=== PATIENT | female | born 1940 | race African-American/Black ===

== ENCOUNTER 2017-08-10 17:54 | Inpatient (IN) | payer OTHER, MEDICARE ==
[~2017-08-10] VITALS: Ht 157.5 cm; Wt 110.5 kg
[~2017-08-10 17:54] MED LIST: ASPI81TA82 PO; CITRTAB16 PO; DIGO0.25 PO; DILT120C49 PO; FERR324T4 PO; FLUT1INH7 PO; PROT40TA PO; SPIR50TA21 PO
[2017-08-10 18:12] VITALS: BP 150/75; PULSE 97; RESP 20; TEMP 99; O2SAT 100
[2017-08-10 18:16] VITALS: BP 150/75; PULSE 107; RESP 20; TEMP 99; O2SAT 100
[2017-08-10] MEDS ORDERED: MORPHINE SULFATE 4 MG/ML INJ IV PUSH ONE (19:30)
[2017-08-10] MEDS ORDERED: SODIUM CHLORID 0.9% 500 ML INJ 500 ML IV ONE (19:30)
[2017-08-10] MEDS ORDERED: ONDANSETRON HCL 4 MG/2 ML VIAL IVP ONE (19:30)
[2017-08-10] MEDS ORDERED: SODIUM CHLORIDE 0.9% FLUSH 10 ML FLUSH IV FLUSH PRN ×2 (19:30→22:00)
--- NOTE | 2017-08-10 19:30 | PD ---
HPI Chief Complaint: Abdominal Pain Time Seen by Provider: 19:20 Travel History International Travel<30 days: No Contact w/Intl Traveler<30days: No Traveled to known affect area: No History of Present Illness HPI Patient is a 87-year-old female with a history of partial colectomy for colon mass presents emergency Department with a 2 day history of nausea vomiting and diarrhea all which is nonbloody nonbilious and non-melena's. Patient states she 's also been having some pain disappeared her umbilicus over the past few days. She states that anytime she eats something her stomach rumbles and it usually comes right back up. She has been able to tolerate small amounts of fluid. Denies any fever denies any constipation. States the symptoms a never happened to her before. PFSH Past Medical History Arthritis: Yes Asthma: Yes Blood Disorders: No Depression: Yes Cancer: Yes (COLON) Cardiovascular Problems: Yes (afib) High Cholesterol: No Diabetes: No Endocrine: No Gastrointestinal Disorders: Yes (WEIGHT LOSS, DIARRHEA, NAUSEA) Genitourinary: Yes Hepatitis: No Hiatal Hernia: No Immune Disorder: No Kidney Stones: Yes Musculoskeletal: No Neurologic: No Psychiatric: No Reproductive: No Respiratory: Yes (asthma ) Thyroid Disease: No Tetanus Vaccination: Unknown Menopausal: Yes Tubal Ligation: Yes Past Surgical History Abdominal Surgery: Yes (colon ? ) AICD: No Arteriovenous Shunt: No Cardiac Surgery: No Ear Surgery: No Endocrine Surgery: No Eye Surgery: No Genitourinary Surgery: No Gynecologic Surgery: Yes (TUBAL LIGATION) Joint Replacement: No Oral Surgery: No Pacemaker: No Thoracic Surgery: No Social History Alcohol Use: No Tobacco Use: No Substance Use: No Allergies-Medications (Allergen,Severity, Reaction): Coded Allergies: No Known Allergies (Verified , 08/22/16) Reported Meds & Prescriptions Reported Meds & Active Scripts Active Reported Furosemide 20 Mg Tab 20 Mg PO DAILY Ferrous Sulfate 325 Mg (65 Mg Iron) Tablet 325 Mg PO DAILY Ventolin Hfa 18 GM Inh (Albuterol Sulfate) 90 Mcg/Act Aer 2 Puff INH Q4-6H PRN Breo Ellipta Inh (Fluticasone/Vilanterol) 100-25 Mcg/Act Inh 1 Puff INH DAILY Use daily at the same time. Pantoprazole (Pantoprazole Sodium) 40 Mg Tab 40 Mg PO DAILY Duoneb (Ipratropium-Albuterol Neb) 0.5-2.5 Mg/3 Ml Neb 1 Nebule INH Q4HR NEB Digoxin 0.25 Mg Tab 0.25 Mg PO DAILY Spironolactone 50 Mg Tab 50 Mg PO DAILY Diltiazem ER 24 HR 180 Mg Nikita 120 Mg PO DAILY Review of Systems Except as stated in HPI: all other systems reviewed are Neg Physical Exam Narrative GENERAL: Well-developed well-nourished, morbidly obese. Mildly uncomfortable. SKIN: Focused skin assessment warm/dry. HEAD: Atraumatic. Normocephalic. EYES: Pupils equal and round. No scleral icterus. No injection or drainage. ENT: No nasal bleeding or discharge. Mucous membranes pink and moist. NECK: Trachea midline. No JVD. CARDIOVASCULAR: Regular rate and rhythm. No murmur appreciated. RESPIRATORY: No accessory muscle use. Clear to auscultation. Breath sounds equal bilaterally. GASTROINTESTINAL: Exam limited secondary to habitus. Abdomen soft, minimally tender throughout the entire abdomen, Damon distended, tympanic to percussion. Well-healed midline surgical scar., nondistended. Hepatic and splenic margins not palpable. MUSCULOSKELETAL: No obvious deformities. No clubbing. No cyanosis. No edema. NEUROLOGICAL: Awake and alert. No obvious cranial nerve deficits. Motor grossly within normal limits. Normal speech. PSYCHIATRIC: Appropriate mood and affect; insight and judgment normal. Data Data Last Documented VS Vital Signs Date Time Temp Pulse Resp B/P (MAP) Pulse Ox O2 Delivery O2 Flow Rate FiO2 08/10/17 20:03 98 18 158/69 (98) 97 Room Air 08/10/17 18:16 99.0 4.00 Orders Orders Complete Blood Count With Diff (08/10/17 19:28) Comprehensive Metabolic Panel (08/10/17 19:28) Lipase (08/10/17 19:28) Lactic Acid (08/10/17 19:28) Prothrombin Time / Inr (Pt) (08/10/17 19:28) Act Partial Throm Time (Ptt) (08/10/17 19:28) Urinalysis - C+S If Indicated (08/10/17 19:28) Ct Abd/Pel W Iv Contrast(Rout) (08/10/17 19:28) Iv Access Insert/Monitor (08/10/17 19:28) Ecg Monitoring (08/10/17 19:28) Oximetry (08/10/17 19:28) Morphine Inj (Morphine Inj) (08/10/17 19:30) Ondansetron Inj (Zofran Inj) (08/10/17 19:30) Sodium Chloride 0.9% Flush (Ns Flush) (08/10/17 19:30) Electrocardiogram (08/10/17 19:28) Sodium Chlorid 0.9% 500 Ml Inj (Ns 500 M (08/10/17 19:30) Iodixanol 320 Inj (Rad Ct) (Visipaque 32 (08/10/17 20:59) Insert Ng Tube (08/10/17 21:16) Admit Order (Ed Use Only) (08/10/17 ) Consult General Surgery (08/10/17 ) Labs Laboratory Tests Test 08/10/17 19:40 08/10/17 21:14 White Blood Count 7.2 TH/MM3 Red Blood Count 4.73 MIL/MM3 Hemoglobin 14.9 GM/DL Hematocrit 45.7 % Mean Corpuscular Volume 96.7 FL Mean Corpuscular Hemoglobin 31.4 PG Mean Corpuscular Hemoglobin Concent 32.5 % Red Cell Distribution Width 14.8 % Platelet Count 221 TH/MM3 Mean Platelet Volume 9.4 FL Neutrophils (%) (Auto) 70.4 % Lymphocytes (%) (Auto) 21.0 % Monocytes (%) (Auto) 7.8 % Eosinophils (%) (Auto) 0.5 % Basophils (%) (Auto) 0.3 % Neutrophils # (Auto) 5.0 TH/MM3 Lymphocytes # (Auto) 1.5 TH/MM3 Monocytes # (Auto) 0.6 TH/MM3 Eosinophils # (Auto) 0.0 TH/MM3 Basophils # (Auto) 0.0 TH/MM3 CBC Comment DIFF FINAL Differential Comment Prothrombin Time 11.7 SEC Prothromb Time International Ratio 1.1 RATIO Activated Partial Thromboplast Time 24.3 SEC Blood Urea Nitrogen 21 MG/DL Creatinine 1.62 MG/DL Random Glucose 95 MG/DL Total Protein 8.2 GM/DL Albumin 3.0 GM/DL Calcium Level 8.9 MG/DL Alkaline Phosphatase 94 U/L Aspartate Amino Transf (AST/SGOT) 59 U/L Alanine Aminotransferase (ALT/SGPT) 27 U/L Total Bilirubin 1.1 MG/DL Sodium Level 136 MEQ/L Potassium Level 4.2 MEQ/L Chloride Level 98 MEQ/L Carbon Dioxide Level 31.1 MEQ/L Anion Gap 7 MEQ/L Estimat Glomerular Filtration Rate 37 ML/MIN Lactic Acid Level 1.1 mmol/L Lipase 91 U/L Urine Color YELLOW Urine Turbidity CLOUDY Urine pH 6.5 Urine Specific [place] 1.021 Urine Protein 100 mg/dL Urine Glucose (UA) NEG mg/dL Urine Ketones 10 mg/dL Urine Occult Blood MOD Urine Nitrite NEG Urine Bilirubin NEG Urine Urobilinogen 2.0 MG/DL Urine Leukocyte Esterase LARGE Urine RBC 82 /hpf Urine WBC /hpf Urine WBC Clumps MOD Urine Squamous Epithelial Cells 4 /hpf Urine Bacteria MANY /hpf Microscopic Urinalysis Comment CULTURE INDICATED MDM Medical Decision Making Medical Screen Exam Complete: Yes Emergency Medical Condition: Yes Differential Diagnosis Obstipation, small bowel obstruction, acute abdomen, pancreatitis, gastritis, gastric enteritis. Narrative Course Patient roomed in emergency department, constipated by history and physical exam highly suggestive of small bowel obstruction. CT scan confirms: Last 24 hours Impressions Abdomen/Pelvis CT 08/10/17 1928 Signed Impressions: Service Date/Time: Thursday, August 10, 2017 20:57 - CONCLUSION: 1. Small bowel obstruction at the level of the distal jejunum or proximal ileum and appears to occur in the midabdomen. No mass or significant inflammatory changes are demonstrated, presumably obstruction related to adhesion. There is evidence of bowel resection and anastomosis in the right upper quadrant, and appears to be downstream of the obstruction. 2. Ventral hernia repair since the prior study. No recurrent defect. 3. Large staghorn calculus of the right kidney, not new but is associated with mild hydronephrosis currently. Antonio Hayes MD Abdomen X-Ray 08/10/17 0000 Signed Impressions: Service Date/Time: Thursday, August 10, 2017 22:14 - CONCLUSION: The NG tube is coiled at the level of the GE junction. Please see above. Antonio Hayes MD Minimal acute kidney injury with a creatinine of 1.8. Electrolytes within normal limits. Patient discussed with Dr. Mcallister who agrees with nonsurgical decompression at this time, NG tube was passed. And then advanced another 10 cm after x-ray confirmed that was coiled. Review the records shows that the patient did have surgery with Dr. Thomas fell her and Dr. Saldana in the past. Ultimately admitted to Dr. Chavez Diagnosis Primary Impression: SBO (small bowel obstruction) Additional Impression: MATTHEW (acute kidney injury) Admitting Information Admitting Physician Requests: Admit Condition: Stable Johnnie Roblero MD Aug 10, 2017 19:30
[2017-08-10] MEDS ORDERED: DILT0.05 PO (19:32)
[2017-08-10] MEDS ORDERED: FURO20TA PO (19:32)
[2017-08-10] MEDS ORDERED: PANT40TA3 PO (19:32)
[2017-08-10] MEDS ORDERED: FLUT1INH INH (19:32)
[2017-08-10] MEDS ORDERED: FERR325T8 PO (19:32)
[2017-08-10] MEDS ORDERED: SPIR50TA PO (19:32)
[2017-08-10] MEDS ORDERED: IPRASOL INH (19:32)
[2017-08-10] MEDS ORDERED: DIGO0.25 PO (19:32)
[2017-08-10] MEDS ORDERED: VENTAER INH (19:32)
[2017-08-10 19:46] VITALS: RESP 18; O2SAT 97
[2017-08-10 20:03] VITALS: BP 158/69; PULSE 98; RESP 18; O2SAT 97
[2017-08-10 20:03] LABS: BASOPHIL % 0.3 % (0.0-2.0); EOSINOPHIL % 0.5 % (0.0-4.0); HEMATOCRIT 45.7 % (35.0-46.0); HEMO FLAGS DIFF FINAL; LYMPHOCYTE # 1.5 TH/MM3 (1.0-4.8); MEAN CELL VOLUME 96.7 FL (80.0-100.0); MEAN CORPUSCULAR HEMOGLOBIN 31.4 PG (27.0-34.0); MEAN CORPUSCULAR HGB CONC 32.5 % (32.0-36.0); MONO % 7.8 % (0.0-8.0); NEUT % 70.4 % (16.0-70.0); PLATELET COUNT 221 TH/MM3 (150-450); RED BLOOD COUNT 4.73 MIL/MM3 (4.00-5.30); RED CELL DISTRIBUTION WIDTH 14.8 % (11.6-17.2); WHITE BLOOD COUNT 7.2 TH/MM3 (4.0-11.0)
[2017-08-10 20:11] LABS: INTERNATIONAL NORMALIZED RATIO 1.1 RATIO; PROTHROMBIN TIME - PATIENT 11.7 SEC (9.8-11.6)
[2017-08-10 20:15] LABS: APTT (PATIENT) 24.3 SEC (24.3-30.1)
[2017-08-10 20:24] LABS: ANION GAP 7 MEQ/L (5-15); AST (GOT) 59 U/L (15-37); BICARBONATE 31.1 MEQ/L (21.0-32.0); BLOOD UREA NITROGEN 21 MG/DL (7-18); CHLORIDE 98 MEQ/L (98-107); GLOMERULAR FILTRATION RATE 37 ML/MIN (>89); POTASSIUM 4.2 MEQ/L (3.5-5.1); SODIUM (NA) 136 MEQ/L (136-145)
[2017-08-10 20:26] LABS: ALKALINE PHOSPHATASE 94 U/L (45-117); ALT (GPT) 27 U/L (10-53); TOTAL BILIRUBIN ADULT 1.1 MG/DL (0.2-1.0)
--- NOTE | 2017-08-10 20:51 | EKG ---
Date Performed: 08/10/2017 Time Performed: 18:21:31 PTAGE: 77 years EKG: ATRIAL FIBRILLATION WITH RAPID VENTRICULAR RESPONSE NONSPECIFIC ST & T-WAVE ABNORMALITY ABN ORMAL RHYTHM ECG Compared to prior electrocardiogram, rate has increased PREVIOUS TRACING : 08/28/2016 16.39 DOCTOR: Ziyad Kearns Interpretating Date/Time 08/10/2017 20:49:51
[2017-08-10] MEDS ORDERED: IODIXANOL 320 MG/ML 10 ML VIAL (for Rad CT) IV ONE (20:59)
--- NOTE | 2017-08-10 21:27 | RADRPT ---
EXAM DATE/TIME: 08/10/2017 20:57 [facility] COMPARISON: CT ABDOMEN & PELVIS W CONTRAST, April 09, 2012, 13:00. INDICATIONS : Abdominal pain with diarrhea x4 days. IV CONTRAST: 50 cc Visipaque (iodixanol) IV ORAL CONTRAST: No oral contrast ingested. RADIATION DOSE: 20.23 CTDIvol (mGy) ; Patient body habitus MEDICAL HISTORY : Renal calculi. Colon cancer. Asthma. SURGICAL HISTORY : Tubal ligation. ENCOUNTER: Initial ACUITY: 1 day PAIN SCALE: 10/10 LOCATION: Bilateral abdomen TECHNIQUE: Volumetric scanning of the abdomen and pelvis was performed. Using automated exposure control and ad justment of the mA and/or kV according to patient size, radiation dose was kept as low as reasonably achievable to obtain optimal diagnostic quality images. DICOM format image data is available electro nically for review and comparison. FINDINGS: Ventral hernia repair since the prior CT and without a recurrent defect. There is distended jejunum and decompressed ileum. Caliber change appears to occur in the midabdomen. I don't see a mass or significant inflammatory changes. Liver, spleen, pancreas and adrenal glands within normal limits. Bilateral renal cysts are again note d including a 9.4 cm cyst of the left lower pole. Large staghorn calculus on the right again seen sim ilar in size to the prior CT but mild diffuse calyceal distention now demonstrated. The right kidney is mildly atrophic, similar to before. CONCLUSION: 1. Small bowel obstruction at the level of the distal jejunum or proximal ileum and appears to occur in the midabdomen. No mass or significant inflammatory changes are demonstrated, presumably obstructi on related to adhesion. There is evidence of bowel resection and anastomosis in the right upper quadr ant, and appears to be downstream of the obstruction. 2. Ventral hernia repair since the prior study. No recurrent defect. 3. Large staghorn calculus of the right kidney, not new but is associated with mild hydronephrosis cu rrently. Antonio Hayes MD on August 10, 2017 at 21:20 Board Certified Radiologist. This report was verified electronically.
--- NOTE | 2017-08-10 21:55 | HHI.HP ---
[facility] Elbert Tsai MD Admission Diagnosis SBO. Diagnoses: (1) SBO (small bowel obstruction) Diagnosis: Principal (2) A-fib Diagnosis: Principal (3) MATTHEW (acute kidney injury) Diagnosis: Principal (4) UTI (urinary tract infection) Diagnosis: Principal Travel History International Travel<30 Days: No Contact w/Intl Traveler <30 Da: No Traveled to Known Affected Are: No History of Present Illness This is a 77-year-old female with a PMH of HTN, A. fib, Depression and h/o Colon CA s/p Partial Colectomy/Liver Resection who presented to the ER w/ complaints of abdominal pain, nausea and vomiting x2 days. Reports occasional episodes of diarrhea. Denies fever, chills or sick contacts. On arrival, BP 150/75, HR 97, O2 sat 100% on RA, Temp 99.0. CBC unremarkable. Creatinine 1.62 , previously 0.76 on 08/28/16. Lactic Acid 1.1. INR 1.1. UA positive for UTI. CT Abd/Pelvis w/ small bowel obstruction level of distal jejunum or proximal ileum, no mass noted. Dr. Duffy consulted by ER physician, will evaluate. S/p NGT insertion in ER. Review of Systems Except as stated in HPI: all other systems reviewed are Neg ROS: 14 point review of systems otherwise negative. Past Family Social History Past Medical History PMH: HTN, A. fib, Depression and h/o Colon CA s/p Partial Colectomy/Liver Resection Past Surgical History PAST SURGICAL HISTORY: Tubal Ligation, Partial Colectomy/Liver Resection 07/2016 Allergies: Coded Allergies: No Known Allergies (Verified , 08/22/16) Family History PAST FAMILY HISTORY: Reviewed. No h/o DM or CAD Social History PAST SOCIAL HISTORY: Negative for alcohol, tobacco or drugs. Physical Exam Vital Signs Vital Signs Date Time Temp Pulse Resp B/P (MAP) Pulse Ox O2 Delivery O2 Flow Rate FiO2 08/10/17 20:03 98 18 158/69 (98) 97 Room Air 08/10/17 19:46 18 97 Room Air 08/10/17 18:16 99.0 107 20 150/75 (100) 100 Nasal Cannula 4.00 08/10/17 18:12 99.0 97 20 150/75 (100) 100 Physical Exam PE: GENERAL: Pleasant elderly female in no acute distress. HEENT: PERRLA, EOMI. No scleral icterus or conjunctival pallor. No lid lag or facial droop. CARDIOVASCULAR: Regular rate and rhythm. No obvious murmurs to auscultation. No chest tenderness to palpation. RESPIRATORY: No obvious rhonchi or wheezing. Clear to auscultation. Breath sounds equal bilaterally. GASTROINTESTINAL: Abdomen soft, mild generalized tenderness to palpation, nondistended. BS normal. MUSCULOSKELETAL: Extremities without clubbing, cyanosis, or edema. No obvious deformities. NEUROLOGICAL: Awake, alert and oriented x4. No focal neurologic deficits. Moving both upper and lower extremities spontaneously. Laboratory Laboratory Tests Test 08/10/17 19:40 08/10/17 21:14 White Blood Count 7.2 Red Blood Count 4.73 Hemoglobin 14.9 Hematocrit 45.7 Mean Corpuscular Volume 96.7 Mean Corpuscular Hemoglobin 31.4 Mean Corpuscular Hemoglobin Concent 32.5 Red Cell Distribution Width 14.8 Platelet Count 221 Mean Platelet Volume 9.4 Neutrophils (%) (Auto) 70.4 Lymphocytes (%) (Auto) 21.0 Monocytes (%) (Auto) 7.8 Eosinophils (%) (Auto) 0.5 Basophils (%) (Auto) 0.3 Neutrophils # (Auto) 5.0 Lymphocytes # (Auto) 1.5 Monocytes # (Auto) 0.6 Eosinophils # (Auto) 0.0 Basophils # (Auto) 0.0 CBC Comment DIFF FINAL Differential Comment Prothrombin Time 11.7 Prothromb Time International Ratio 1.1 Activated Partial Thromboplast Time 24.3 Blood Urea Nitrogen 21 Creatinine 1.62 Random Glucose 95 Total Protein 8.2 Albumin 3.0 Calcium Level 8.9 Alkaline Phosphatase 94 Aspartate Amino Transf (AST/SGOT) 59 Alanine Aminotransferase (ALT/SGPT) 27 Total Bilirubin 1.1 Sodium Level 136 Potassium Level 4.2 Chloride Level 98 Carbon Dioxide Level 31.1 Anion Gap 7 Estimat Glomerular Filtration Rate 37 Lactic Acid Level 1.1 Lipase 91 Result Diagram: 08/10/17193908/10/171939 Caprini VTE Risk Assessment Caprini VTE Risk Assessment: Mod/High Risk (score >= 2) Caprini Risk Assessment Model Point Value = 1 Point Value = 2 Point Value = 3 Point Value = 5 Age 41-60 Minor surgery BMI > 25 kg/m2 Swollen legs Varicose veins or History of unexplained or recurrent spontaneous Oral contraceptives or hormone replacement Sepsis (< 1 month) Serious lung disease, including pneumonia (< 1 month) Abnormal pulmonary function Acute myocardial infarction Congestive heart failure (< 1 month) History of inflammatory bowel disease Medical patient at bed rest Age 61-74 Arthroscopic surgery Major open surgery (> 45 min) Laparoscopic surgery (> 45 min) Malignancy Confined to bed (> 72 hours) Immobilizing plaster cast Central venous access Age >= 75 History of VTE Family history of VTE Factor V Leiden Prothrombin [id number] Lupus anticoagulant Anticardiolipin antibodies Elevated serum homocysteine Heparin-induced thrombocytopenia Other congenital or acquired thrombophilia Stroke (< 1 month) Elective arthroplasty Hip, pelvis, or leg fracture Acute spinal cord injury (< 1 month) Prophylaxis Regimen Total Risk Factor Score Risk Level Prophylaxis Regimen 0-1 Low Early ambulation 2 Moderate Order ONE of the following: *Sequential Compression Device (SCD) *Heparin 5000 units SQ BID 3-4 Higher Order ONE of the following medications: *Heparin 5000 units SQ TID *Enoxaparin/Lovenox 40 mg SQ daily (WT < 150 kg, CrCl > 30 mL/min) *Enoxaparin/Lovenox 30 mg SQ daily (WT < 150 kg, CrCl > 10-29 mL/min) *Enoxaparin/Lovenox 30 mg SQ BID (WT < 150 kg, CrCl > 30 mL/min) AND/OR *Sequential Compression Device (SCD) 5 or more Highest Order ONE of the following medications: *Heparin 5000 units SQ TID (Preferred with Epidurals) *Enoxaparin/Lovenox 40 mg SQ daily (WT < 150 kg, CrCl > 30 mL/min) *Enoxaparin/Lovenox 30 mg SQ daily (WT < 150 kg, CrCl > 10-29 mL/min) *Enoxaparin/Lovenox 30 mg SQ BID (WT < 150 kg, CrCl > 30 mL/min) AND *Sequential Compression Device (SCD) Assessment and Plan Problem List: (1) SBO (small bowel obstruction) ICD Code: K56.69 - Other intestinal obstruction (2) MATTHEW (acute kidney injury) ICD Code: N17.9 - Acute kidney failure, unspecified (3) UTI (urinary tract infection) ICD Code: N39.0 - Urinary tract infection, site not specified (4) A-fib ICD Code: I48.91 - Unspecified atrial fibrillation Assessment and Plan A/P: 1. SBO: h/o Colon CA s/p Partial Colectomy/Liver Resection by Dr. Saldana 07/2016 , now w/ abdominal pain, nausea/vomiting. CT Abd/Pelvis w/ small bowel obstruction at level of distal jejunum or proximal ileum, images reviewed by me. Dr. Duffy consulted by ER physician. NPO, NGT in place, IVF, analgesics/antiemetics as needed. 2. MATTHEW: Creatinine 1.62, previously 0.76 on 08/28/16. IVF for hydration, repeat labs in am. 3. UTI: U/a positive for UTI. Start IV Cipro. IVF for hydration. 4. A-fib: Paroxysmal. Controlled. Resume home Digoxin IV, hold Diltiazem for now as NPO. 5. DVT Prophylaxis: SCD/Teds 6. Social work for d/c planning as needed. 7. Case discussed w/ ER physician at length. Physician Certification 2 Midnight Certification Type: Admission for Inpatient Services Order for Inpatient Services The services are ordered in accordance with Medicare regulations or non- Medicare payer requirements, as applicable. In the case of services not specified as inpatient-only, they are appropriately provided as inpatient services in accordance with the 2-midnight benchmark. Estimated LOS (days): 2 days is the estimated time the patient will need to remain in the hospital, assuming treatment plan goals are met and no additional complications. Post-Hospital Plan: Not yet determined Nancy Chavez MD Aug 10, 2017 21:55
[2017-08-10] MEDS ORDERED: SENNOSIDES 8.6 MG TAB PO PRN (22:00)
[2017-08-10] MEDS ORDERED: LACTULOSE SYRUP 20 GM/30 ML CUP PO PRN (22:00)
[2017-08-10] MEDS ORDERED: ACETAMINOPHEN 1000 MG/100 ML VIAL IV PRN (22:00)
[2017-08-10] MEDS ORDERED: ONDANSETRON HCL 4 MG/2 ML VIAL IV PUSH ONE (22:00)
[2017-08-10] MEDS ORDERED: BISACODYL 10 MG SUPP RECTAL PRN (22:00)
[2017-08-10 22:11] LABS: BACTERIA, URINE MANY /hpf; BLOOD, URINE MOD (NEG); COMMENT (UR) CULTURE INDICATED; CULTURE IF INDICATED CULTURE INDICATED; GLUCOSE,URINE NEG (NEG); KETONE, URINE 10 mg/dL (NEG); NITRITE,URINE NEG (NEG); PH, URINE 6.5 (5.0-8.5); SQUAMOUS EPITHELIAL CELL URINE 4 /hpf (0-5); URINE COLOR YELLOW (YELLW/STRAW)
--- NOTE | 2017-08-10 22:42 | RADRPT ---
EXAM DATE/TIME: 08/10/2017 22:14 [facility] COMPARISON: No previous studies available for comparison. FINDINGS: Nasogastric tube has been placed, coiled back on itself at the level of the GE junction and with the tip in the lower esophagus. It will probably straighten on its own if advanced about 10 cm. Distended loops of proximal small bowel are noted. There is a large staghorn calculus of the right ki dney. There is intravenous contrast being excreted by the left kidney. CONCLUSION: The NG tube is coiled at the level of the GE junction. Please see above. Antonio Hayes MD on August 10, 2017 at 22:38 Board Certified Radiologist. This report was verified electronically.
[2017-08-10] MEDS ORDERED: CIPROFLOXACIN 400 MG PREMIX 200 ML IV SCH (23:00)
[2017-08-10 23:03] VITALS: BP 146/70; PULSE 88; RESP 18; O2SAT 98
[2017-08-10] MEDS: CIPROFLOXACIN 400 MG PREMIX 200 ML IV SCH (23:20)
[2017-08-10] MEDS: SODIUM CHLOR 0.9% 1000 ML INJ 1,000 ML IV SCH (23:20)
[2017-08-10] MEDS: MORPHINE SULFATE 4 MG/ML INJ IV PUSH PRN (23:26)
[2017-08-11] VITALS: BP 126/82; PULSE 105; RESP 18; TEMP 96.6; O2SAT 92
[2017-08-11 04:52] LABS: AUTOMATED NEUTROPHIL # 3.3 TH/MM3 (1.8-7.7); BASOPHIL % 0.2 % (0.0-2.0); EOSINOPHIL # 0.1 TH/MM3 (0-0.4); EOSINOPHIL % 1.4 % (0.0-4.0); HEMATOCRIT 42.2 % (35.0-46.0); HEMO FLAGS DIFF FINAL; LYMPH % 36.8 % (9.0-44.0); LYMPHOCYTE # 2.4 TH/MM3 (1.0-4.8); MEAN CORPUSCULAR HEMOGLOBIN 31.4 PG (27.0-34.0); MONO % 9.5 % (0.0-8.0); NEUT % 52.1 % (16.0-70.0); PLATELET COUNT 194 TH/MM3 (150-450); RED BLOOD COUNT 4.31 MIL/MM3 (4.00-5.30); RED CELL DISTRIBUTION WIDTH 14.8 % (11.6-17.2); WHITE BLOOD COUNT 6.4 TH/MM3 (4.0-11.0)
[2017-08-11 05:13] LABS: ALT (GPT) 52 U/L (10-53); ANION GAP 10 MEQ/L (5-15); AST (GOT) 114 U/L (15-37); BICARBONATE 29.5 MEQ/L (21.0-32.0); BLOOD UREA NITROGEN 23 MG/DL (7-18); CHLORIDE 102 MEQ/L (98-107); GLOMERULAR FILTRATION RATE 39 ML/MIN (>89); POTASSIUM 3.5 MEQ/L (3.5-5.1); SODIUM (NA) 141 MEQ/L (136-145)
[2017-08-11 05:17] LABS: ALKALINE PHOSPHATASE 102 U/L (45-117); TOTAL BILIRUBIN ADULT 1.4 MG/DL (0.2-1.0)
[2017-08-11 08:00] VITALS: BP 123/75; PULSE 102; RESP 18; TEMP 96.2; O2SAT 90
[2017-08-11] MEDS: DOCUSATE SODIUM 50 MG/SENNA 8.6 MG TAB PO SCH ×2 (09:00→19:22)
[2017-08-11] MEDS: RESP: ALBUTEROL 2.5 MG/IPRATROPIUM 0.5 MG NEB (SCH) INH ×4 (09:02→20:57)
--- NOTE | 2017-08-11 09:38 | MB ---
cc: BAKARI JEROME DATE OF CONSULTATION: 08/10/2017 REQUESTING PHYSICIAN: Dr. Chavez. REASON FOR CONSULTATION: Small bowel obstruction. HISTORY OF PRESENT ILLNESS: The patient is a 77 year old -[place] female with past medical history of colon cancer, status post resection and repair of hernia by Dr. Mark Saldana. Approximately 1 year ago who presents to [facility] with nausea, vomiting x2 days. The patient states that she usually eats soft food and has was in her normal health, although she does have some intermittent crampy abdominal pain since her surgery. The patient did eat an apple that she states that she did not chew enough and since then she has reported some increased pain and nausea, vomiting. Her daughter insisted she be evaluated at the emergency department and upon evaluation was found to have a small bowel obstruction based on a CT scan abdomen and pelvis. The patient had multiple medical issues and NG tube was placed and general surgery was consulted. The patient was admitted to the hospital service. The patient states that she has had any past bowel movements into 2 days and has been able to tolerate any oral liquid or solid food for two days. She denies any fevers, chills, night sweats, chest pain, shortness breath or any other complaints. REVIEW OF SYSTEMS The 12 point review of systems was discussed with the patient is negative except for pertinent positives mentioned above in history present illness. PAST MEDICAL HISTORY 1. Hypertension 2. colon cancer 3. Depression 4. atrial fibrillation. PAST SURGICAL HISTORY 1. Tubal ligation 2. partial colectomy 3. liver resection July 2016 ALLERGIES NO KNOWN DRUG ALLERGIES. FAMILY HISTORY Noncontributory. SOCIAL HISTORY Denies alcohol or illicit drug use. MEDICATIONS: 1. Albuterol 2. Morphine 3. Digoxin PHYSICAL EXAMINATION: Physical examination; the temperature is 99.0, pulse 98, blood pressure 158/69. IN GENERAL: Patient is a obese, -[place] female who appears uncomfortable and did not appear chronically ill. HEAD, EYES, EARS, NOSE, AND THROAT: Normocephalic, atraumatic, Pupils equal, round, reactive to light and accommodation. Sclerae is anicteric. Mucous sites membranes are moist. Oral cavity is clear. His nasogastric is in place with biliary drainage. NECK: Neck is supple. No JVD. LUNGS: Lungs are present bilaterally. HEART: Regular rhythm. ABDOMEN: Soft and distended, obese the midline scars well-healed with no hernia. No peritonitis or rebound tenderness. No masses or ascites. EXTREMITIES: No clubbing, cyanosis or edema. NEUROLOGIC: The patient is alert, orient x3. Nonfocal peripheral exam. Cranial II-XII grossly intact. LABORATORY FINDINGS hemoglobin that is 14.9, white blood cell count 7.2, creatinine elevated 1.62. IMAGING STUDIES CT scan of the abdomen and pelvis is consistent with small bowel obstruction. ASSESSMENT/PLAN The patient is a 77-year-old female known to my partner Dr. Mark Saldana after resection of colon mass with near obstruction colon cancer invading the liver. The patient likely has a small bowel obstruction and again likely due to adhesive disease as there is no definitive malignancy identified on CT scan. This maybe related to eating a raw apple which she states she usually never eats raw food, only applesauce and soft food due to not having an teeth. I do agree with current management and agree with the NG tube decompression and slow hydration of the patient as the patient's laboratory abnormalities are likely due to two days of nausea, vomiting and some mild dehydration. I do agree with nonoperative management at this time and Dr Mark Saldana will be see and evaluate the patient the next time he is available. The surgery team will follow along with the patient. Likely the patient should have resolution and I discussed this plan of care with the patient and the patients daughter and they are agreement. Thank very much this consultation. MD CARA Nugent/james /8:10 AM /9:08 AM [id number]
[2017-08-11] MEDS: SODIUM CHLOR 0.9% 1000 ML INJ 1,000 ML IV SCH ×2 (09:41→17:49)
[2017-08-11] MEDS: SODIUM CHLORIDE 0.9% FLUSH 10 ML FLUSH IV FLUSH SCH ×2 (09:42→19:23)
[2017-08-11] MEDS: DIGOXIN 0.5 MG/2 ML VIAL IV PUSH SCH (09:43)
--- NOTE | 2017-08-11 10:29 | HHI.PR ---
Subjective Subjective Notes feels much better this am, had large BM, wants something to drink. Objective Vitals/I&O Vital Signs Date Time Temp Pulse Resp B/P (MAP) Pulse Ox O2 Delivery O2 Flow Rate FiO2 08/11/17 08:00 96.2 102 18 123/75 (91) 90 08/10/17 23:03 Room Air 08/10/17 18:16 4.00 Labs Laboratory Tests Test 08/10/17 19:40 08/10/17 21:14 08/11/17 04:16 White Blood Count 7.2 6.4 Red Blood Count 4.73 4.31 Hemoglobin 14.9 13.5 Hematocrit 45.7 42.2 Mean Corpuscular Volume 96.7 98.0 Mean Corpuscular Hemoglobin 31.4 31.4 Mean Corpuscular Hemoglobin Concent 32.5 32.0 Red Cell Distribution Width 14.8 14.8 Platelet Count 221 194 Mean Platelet Volume 9.4 8.6 Neutrophils (%) (Auto) 70.4 52.1 Lymphocytes (%) (Auto) 21.0 36.8 Monocytes (%) (Auto) 7.8 9.5 Eosinophils (%) (Auto) 0.5 1.4 Basophils (%) (Auto) 0.3 0.2 Neutrophils # (Auto) 5.0 3.3 Lymphocytes # (Auto) 1.5 2.4 Monocytes # (Auto) 0.6 0.6 Eosinophils # (Auto) 0.0 0.1 Basophils # (Auto) 0.0 0.0 CBC Comment DIFF FINAL DIFF FINAL Differential Comment Prothrombin Time 11.7 Prothromb Time International Ratio 1.1 Activated Partial Thromboplast Time 24.3 Blood Urea Nitrogen 21 23 Creatinine 1.62 1.58 Random Glucose 95 100 Total Protein 8.2 7.2 Albumin 3.0 2.7 Calcium Level 8.9 7.9 Alkaline Phosphatase 94 102 Aspartate Amino Transf (AST/SGOT) 59 114 Alanine Aminotransferase (ALT/SGPT) 27 52 Total Bilirubin 1.1 1.4 Sodium Level 136 141 Potassium Level 4.2 3.5 Chloride Level 98 102 Carbon Dioxide Level 31.1 29.5 Anion Gap 7 10 Estimat Glomerular Filtration Rate 37 39 Lactic Acid Level 1.1 Lipase 91 Urine Color YELLOW Urine Turbidity CLOUDY Urine pH 6.5 Urine Specific [place] 1.021 Urine Protein 100 Urine Glucose (UA) NEG Urine Ketones 10 Urine Occult Blood MOD Urine Nitrite NEG Urine Bilirubin NEG Urine Urobilinogen 2.0 Urine Leukocyte Esterase LARGE Urine RBC 82 Urine WBC Urine WBC Clumps MOD Urine Squamous Epithelial Cells 4 Urine Bacteria MANY Microscopic Urinalysis Comment CULTURE INDICATED Date/Time Source Procedure Growth Status 08/10/17 21:14 Urine Clean Catch Urine Culture Pending Received Abdomen: Non-distended, Non-tender, BS normal A/P Assessment and Plan psbo vs ileus will place NGT to suction (was clamped when i came to see pt) ok for ice and popcicles will check SBFT today Mark Saldana MD Aug 11, 2017 10:29
--- NOTE | 2017-08-11 11:06 | HHI.PR ---
Subjective Remarks Says she feels less nauseated and no more vomiting. Patiemt has NG tube placed on suctioning. now. Seen by Dr Saldana gen / surg. Patient has no abdominal her at this time. Did not have a BM. Denies fever or chills./ No sob or tachycardia. Objective Vitals Vital Signs Date Time Temp Pulse Resp B/P (MAP) Pulse Ox O2 Delivery O2 Flow Rate FiO2 08/11/17 08:00 96.2 102 18 123/75 (91) 90 08/11/17 00:00 96.6 105 18 126/82 (97) 92 08/10/17 23:03 88 18 146/70 (95) 98 Room Air 08/10/17 23:02 08/10/17 20:03 98 18 158/69 (98) 97 Room Air 08/10/17 19:46 18 97 Room Air 08/10/17 18:16 99.0 107 20 150/75 (100) 100 Nasal Cannula 4.00 08/10/17 18:12 99.0 97 20 150/75 (100) 100 I/O 08/10/17 08/10/17 08/10/17 08/11/17 08/11/17 08/11/17 07:00 15:00 23:00 07:00 15:00 23:00 Intake Total 500 ml 642 ml Output Total 600 ml Balance 500 ml 42 ml Intake IV Total 500 ml 642 ml Output Gastric Drainage Total 600 ml Result Diagram: 08/11/17 0416 08/11/17 0416 Imaging Last Impressions Abdomen/Pelvis CT 08/10/17 1928 Signed Impressions: Service Date/Time: Thursday, August 10, 2017 20:57 - CONCLUSION: 1. Small bowel obstruction at the level of the distal jejunum or proximal ileum and appears to occur in the midabdomen. No mass or significant inflammatory changes are demonstrated, presumably obstruction related to adhesion. There is evidence of bowel resection and anastomosis in the right upper quadrant, and appears to be downstream of the obstruction. 2. Ventral hernia repair since the prior study. No recurrent defect. 3. Large staghorn calculus of the right kidney, not new but is associated with mild hydronephrosis currently. Antonio Hayes MD Abdomen X-Ray 08/10/17 0000 Signed Impressions: Service Date/Time: Thursday, August 10, 2017 22:14 - CONCLUSION: The NG tube is coiled at the level of the GE junction. Please see above. Antonio Hayes MD Objective Remarks GENERAL: Pleasant elderly female in no acute distress. HEENT: PERRLA, EOMI. No scleral icterus or conjunctival pallor. No lid lag or facial droop. CARDIOVASCULAR: Regular rate and rhythm. No obvious murmurs to auscultation. No chest tenderness to palpation. RESPIRATORY: No obvious rhonchi or wheezing. Clear to auscultation. Breath sounds equal bilaterally. GASTROINTESTINAL: Abdomen soft, mild generalized tenderness to palpation, nondistended. BS normal. MUSCULOSKELETAL: Extremities without clubbing, cyanosis, or edema. No obvious deformities. NEUROLOGICAL: Awake, alert and oriented x4. No focal neurologic deficits. Moving both upper and lower extremities spontaneously. A/P Problem List: (1) SBO (small bowel obstruction) ICD Code: K56.69 - Other intestinal obstruction (2) MATTHEW (acute kidney injury) ICD Code: N17.9 - Acute kidney failure, unspecified (3) UTI (urinary tract infection) ICD Code: N39.0 - Urinary tract infection, site not specified (4) A-fib ICD Code: I48.91 - Unspecified atrial fibrillation Assessment and Plan SBO: h/o Colon CA s/p Partial Colectomy/Liver Resection by Dr. Saldana 07/2016, now w/ abdominal pain, nausea/vomiting. CT Abd/Pelvis w/ small bowel obstruction at level of distal jejunum or proximal ileum, images reviewed by me. gen surgery consulted and ff. Conservative management for now. NPO, ok for ice chips, NGT in place, IVF, analgesics/antiemetics as needed. MATTHEW: Creatinine 1.62 on admission previously 0.76 on 08/28/16. IVF for hydration. Monitor kidney function. Improving. UTI: U/a positive for UTI. Start IV Cipro. IVF for hydration. A-fib: Paroxysmal. Controlled. Resume home Digoxin IV, hold Diltiazem for now as NPO. DVT Prophylaxis: SCD/Teds Case management consulted for d/c planning as needed. discussed with the patient, nurse. Stella Black MD Aug 11, 2017 11:06
[2017-08-11 12:00] VITALS: BP 108/73; PULSE 92; RESP 18; TEMP 95.8; O2SAT 90
[2017-08-11 16:00] VITALS: BP 128/78; PULSE 91; RESP 18; TEMP 96.1; O2SAT 92
[2017-08-11] MEDS: CIPROFLOXACIN 400 MG PREMIX 200 ML IV SCH (17:44)
[2017-08-11] MEDS ORDERED: DIATRIZOATE MEGLUM/DIATRIZOATE SOD 120 ML BTL (for RAD DIAG) NG ONE (18:28)
[2017-08-11] MEDS ORDERED: SODIUM CHLOR 0.9% 1000 ML INJ 1,000 ML IV SCH (18:45)
[2017-08-11 20:00] VITALS: BP 130/94; PULSE 99; RESP 16; TEMP 96; O2SAT 92
--- NOTE | 2017-08-11 22:20 | RADRPT ---
EXAM DATE/TIME: 08/11/2017 13:40 [facility] COMPARISON: ABDOMEN SINGLE VIEW, August 10, 2017, 22:14. CT ABDOMEN & PELVIS W CONTRAST, August 10, 2017, 20:57. INDICATIONS : Obstruction. FLUORO TIME: 1.1 minutes IMAGE COUNT: 16 CONTRAST: MD Mullen IMAGING TIME(S): 15 min, 2 hrs, 6 hrs8hr MEDICAL HISTORY : Renal calculi. Colon cancer. Asthma. SURGICAL HISTORY : Tubal ligation. ENCOUNTER: Subsequent ACUITY: 2 days PAIN SCORE: 5/10 LOCATION: Bilateral abdomen. FINDINGS: Initial product support engineer radiograph shows moderate jejunal distention. Large staghorn calculus seen in the right kidney. The left kidney is still extruding contrast from yesterday's CT. Nasogastric tube has its ti p in the proximal duodenum. Contrast passes into decompressed ileum and proximal colon by 6 hours. Caliber change appears to be i n the midabdomen. There is evidence of a rectocele but does not appear to be contributory. CONCLUSION: Persistent partial obstruction at the level of the mid small bowel. Rectocele. Antonio Hayes MD on August 11, 2017 at 22:15 Board Certified Radiologist. This report was verified electronically.
[2017-08-12 00:40] VITALS: BP 114/65; PULSE 116; RESP 18; TEMP 96.3; O2SAT 100
[2017-08-12] MEDS: SODIUM CHLOR 0.9% 1000 ML INJ 1,000 ML IV SCH ×2 (03:49→12:24)
[2017-08-12 07:32] LABS: AUTOMATED NEUTROPHIL # 4.1 TH/MM3 (1.8-7.7); BASOPHIL % 0.2 % (0.0-2.0); EOSINOPHIL # 0.1 TH/MM3 (0-0.4); EOSINOPHIL % 1.5 % (0.0-4.0); HEMATOCRIT 43.4 % (35.0-46.0); HEMO FLAGS DIFF FINAL; LYMPH % 26.7 % (9.0-44.0); LYMPHOCYTE # 1.7 TH/MM3 (1.0-4.8); MEAN CELL VOLUME 98.9 FL (80.0-100.0); MEAN CORPUSCULAR HEMOGLOBIN 32.1 PG (27.0-34.0); MEAN CORPUSCULAR HGB CONC 32.4 % (32.0-36.0); MONO % 8.7 % (0.0-8.0); NEUT % 62.9 % (16.0-70.0); PLATELET COUNT 176 TH/MM3 (150-450); RED BLOOD COUNT 4.38 MIL/MM3 (4.00-5.30); RED CELL DISTRIBUTION WIDTH 14.9 % (11.6-17.2); WHITE BLOOD COUNT 6.5 TH/MM3 (4.0-11.0)
[2017-08-12] MEDS: RESP: ALBUTEROL 2.5 MG/IPRATROPIUM 0.5 MG NEB (SCH) INH ×4 (07:48→19:56)
[2017-08-12 08:00] VITALS: BP 115/78; PULSE 91; RESP 18; TEMP 97; O2SAT 92
[2017-08-12] MEDS: SODIUM CHLORIDE 0.9% FLUSH 10 ML FLUSH IV FLUSH SCH ×2 (08:03→20:10)
[2017-08-12] MEDS: DIGOXIN 0.5 MG/2 ML VIAL IV PUSH SCH (08:03)
[2017-08-12 08:09] LABS: BICARBONATE 29.2 MEQ/L (21.0-32.0); MAGNESIUM 2.2 MG/DL (1.5-2.5)
[2017-08-12] MEDS: MORPHINE SULFATE 4 MG/ML INJ IV PUSH PRN ×2 (08:10→20:08)
[2017-08-12 08:13] LABS: POTASSIUM 3.7 MEQ/L (3.5-5.1)
[2017-08-12] MEDS ORDERED: PHENOL 1.4% SOLN 180 ML BTL OROPHARYNG PRN (08:45)
--- NOTE | 2017-08-12 08:46 | HHI.PR ---
Subjective Remarks Called by the nurse. patient wants to pull out the NG tube as is uncomfortable and her throat hurts. Will give anesthetic spray. Patient without nausea or vomiting, had 3 large BM. No Seen by gen surgery ok to DC NG tube. Advance diet per surgeon. Objective Vitals Vital Signs Date Time Temp Pulse Resp B/P (MAP) Pulse Ox O2 Delivery O2 Flow Rate FiO2 08/12/17 08:00 97.0 91 18 115/78 (90) 92 08/12/17 00:40 96.3 116 18 114/65 (81) 100 08/11/17 20:00 96.0 99 16 130/94 (106) 92 08/11/17 16:00 96.1 91 18 128/78 (95) 92 08/11/17 12:00 95.8 92 18 108/73 (85) 90 I/O 08/11/17 08/11/17 08/11/17 08/12/17 08/12/17 08/12/17 07:00 15:00 23:00 07:00 15:00 23:00 Intake Total 642 ml 0 ml Output Total 600 ml 20 ml Balance 42 ml 0 ml -20 ml Intake Oral 0 ml IV Total 642 ml Gastric Drainage Total 600 ml 20 ml # Voids 4 0 # Bowel Movements 3 2 Result Diagram: 08/12/17 0604 08/12/17 0604 Imaging Last Impressions Small Bowel X-Ray 08/11/17 0000 Signed Impressions: Service Date/Time: Friday, August 11, 2017 13:40 - CONCLUSION: Persistent partial obstruction at the level of the mid small bowel. Rectocele. Antonio Hayes MD Abdomen/Pelvis CT [id number]/[id number] Signed Impressions: Service Date/Time: Thursday, August 10, 2017 20:57 - CONCLUSION: 1. Small bowel obstruction at the level of the distal jejunum or proximal ileum and appears to occur in the midabdomen. No mass or significant inflammatory changes are demonstrated, presumably obstruction related to adhesion. There is evidence of bowel resection and anastomosis in the right upper quadrant, and appears to be downstream of the obstruction. 2. Ventral hernia repair since the prior study. No recurrent defect. 3. Large staghorn calculus of the right kidney, not new but is associated with mild hydronephrosis currently. Antonio Hayes MD Abdomen X-Ray 08/10/17 0000 Signed Impressions: Service Date/Time: Thursday, August 10, 2017 22:14 - CONCLUSION: The NG tube is coiled at the level of the GE junction. Please see above. Antonio Hayes MD Objective Remarks GENERAL: Pleasant elderly female in no acute distress. HEENT: PERRLA, EOMI. No scleral icterus or conjunctival pallor. No lid lag or facial droop. CARDIOVASCULAR: Regular rate and rhythm. No obvious murmurs to auscultation. No chest tenderness to palpation. RESPIRATORY: No obvious rhonchi or wheezing. Clear to auscultation. Breath sounds equal bilaterally. GASTROINTESTINAL: Abdomen soft, mild generalized tenderness to palpation, nondistended. BS normal. MUSCULOSKELETAL: Extremities without clubbing, cyanosis, or edema. No obvious deformities. NEUROLOGICAL: Awake, alert and oriented x4. No focal neurologic deficits. Moving both upper and lower extremities spontaneously. A/P Problem List: (1) SBO (small bowel obstruction) ICD Code: K56.69 - Other intestinal obstruction (2) MATTHEW (acute kidney injury) ICD Code: N17.9 - Acute kidney failure, unspecified (3) UTI (urinary tract infection) ICD Code: N39.0 - Urinary tract infection, site not specified (4) A-fib ICD Code: I48.91 - Unspecified atrial fibrillation Assessment and Plan SBO: h/o Colon CA s/p Partial Colectomy/Liver Resection by Dr. Saldana 07/2016, now w/ abdominal pain, nausea/vomiting. CT Abd/Pelvis w/ small bowel obstruction at level of distal jejunum or proximal ileum, images reviewed by me. gen surgery consulted and ff. Conservative management. Had 3 large BM, no more n/v/. OK to remove NGT per surgeon and start feedings. VF, analgesics/ antiemetics as needed. MATTHEW: Creatinine 1.62 on admission previously 0.76 on 08/28/16. IVF for hydration. Monitor kidney function. Improving. UTI: U/a positive for UTI. Start IV Cipro. IVF for hydration. A-fib: Paroxysmal. Controlled. Resume home Digoxin IV, hold Diltiazem for now as NPO. DVT Prophylaxis: SCD/Teds Case management consulted for d/c planning as needed. discussed with the patient, nurse. Improving, advance diet per surgeon, DC when cleared by surgeon Stella Black MD Aug 12, 2017 08:46
[2017-08-12] MEDS: DOCUSATE SODIUM 50 MG/SENNA 8.6 MG TAB PO SCH ×2 (09:00→20:10)
--- NOTE | 2017-08-12 09:30 | HHI.PR ---
Subjective Subjective Notes feels better, had 3 large BMs, wants NG out and something to drink Objective Vitals/I&O Vital Signs Date Time Temp Pulse Resp B/P (MAP) Pulse Ox O2 Delivery O2 Flow Rate FiO2 08/12/17 08:00 97.0 91 18 115/78 (90) 92 08/10/17 23:03 Room Air 08/10/17 18:16 4.00 Labs Laboratory Tests Test 08/12/17 06:04 White Blood Count 6.5 Red Blood Count 4.38 Hemoglobin 14.1 Hematocrit 43.4 Mean Corpuscular Volume 98.9 Mean Corpuscular Hemoglobin 32.1 Mean Corpuscular Hemoglobin Concent 32.4 Red Cell Distribution Width 14.9 Platelet Count 176 Mean Platelet Volume 9.8 Neutrophils (%) (Auto) 62.9 Lymphocytes (%) (Auto) 26.7 Monocytes (%) (Auto) 8.7 Eosinophils (%) (Auto) 1.5 Basophils (%) (Auto) 0.2 Neutrophils # (Auto) 4.1 Lymphocytes # (Auto) 1.7 Monocytes # (Auto) 0.6 Eosinophils # (Auto) 0.1 Basophils # (Auto) 0.0 CBC Comment DIFF FINAL Differential Comment Blood Urea Nitrogen 26 Creatinine 1.54 Random Glucose 90 Calcium Level 8.7 Magnesium Level 2.2 Sodium Level 141 Potassium Level 3.7 Chloride Level 104 Carbon Dioxide Level 29.2 Anion Gap 8 Estimat Glomerular Filtration Rate 40 Date/Time Source Procedure Growth Status 08/10/17 21:14 Urine Clean Catch Urine Culture - Final 50-100,000 CFU/ML MIXED NASIM... Complete Abdomen: Non-distended, Non-tender, BS normal A/P Assessment and Plan psbo vs ileus SBFT shows contrast in colon at 6 hours resume diet Mark Boss MD Aug 12, 2017 09:30
[2017-08-12] MEDS ORDERED: PNEUMOCOCCAL POLYVALENT INJ 25 MCG/0.5 ML SYR IM ONE (10:00)
[2017-08-12] MEDS ORDERED: INFLUENZA VIRUS VACCINE (QUADRIVALENT) 0.5 ML SYR IM ONE (10:00)
--- NOTE | 2017-08-12 10:38 | HHI.DS ---
Discharge Summary Admission Date Aug 10, 2017 at 21:30 Admitting Diagnosis SBO. (1) SBO (small bowel obstruction) ICD Code: K56.69 - Other intestinal obstruction (2) MATTHEW (acute kidney injury) ICD Code: N17.9 - Acute kidney failure, unspecified (3) UTI (urinary tract infection) ICD Code: N39.0 - Urinary tract infection, site not specified (4) A-fib ICD Code: I48.91 - Unspecified atrial fibrillation Brief History - From Admission This is a 77-year-old female with a PMH of HTN, A. fib, Depression and h/o Colon CA s/p Partial Colectomy/Liver Resection who presented to the ER w/ complaints of abdominal pain, nausea and vomiting x2 days. Reports occasional episodes of diarrhea. Denies fever, chills or sick contacts. On arrival, BP 150/75, HR 97, O2 sat 100% on RA, Temp 99.0. CBC unremarkable. Creatinine 1.62 , previously 0.76 on 08/28/16. Lactic Acid 1.1. INR 1.1. UA positive for UTI. CT Abd/Pelvis w/ small bowel obstruction level of distal jejunum or proximal ileum, no mass noted. Dr. Duffy consulted by ER physician, will evaluate. S/p NGT insertion in ER. CBC/BMP: 08/12/17 0604 08/12/17 0604 Significant Findings Laboratory Tests Test 08/10/17 19:40 08/10/17 21:14 08/11/17 04:16 08/12/17 06:04 Neutrophils (%) (Auto) 70.4 % (16.0-70.0) Prothrombin Time 11.7 SEC (9.8-11.6) Blood Urea Nitrogen 21 MG/DL (7-18) 23 MG/DL (7-18) 26 MG/DL (7-18) Creatinine 1.62 MG/DL (0.50-1.00) 1.58 MG/DL (0.50-1.00) 1.54 MG/DL (0.50-1.00) Albumin 3.0 GM/DL (3.4-5.0) 2.7 GM/DL (3.4-5.0) Aspartate Amino Transf (AST/SGOT) 59 U/L (15-37) 114 U/L (15-37) Total Bilirubin 1.1 MG/DL (0.2-1.0) 1.4 MG/DL (0.2-1.0) Estimat Glomerular Filtration Rate 37 ML/MIN (>89) 39 ML/MIN (>89) 40 ML/MIN (>89) Urine Turbidity CLOUDY (CLEAR) Urine Protein 100 mg/dL (NEG-TRACE) Urine Ketones 10 mg/dL (NEG) Urine Occult Blood MOD (NEG) Urine Leukocyte Esterase LARGE (NEG) Urine RBC 82 /hpf (0-3) Urine WBC Clumps MOD (NONE) Urine Bacteria MANY /hpf (NONE) Monocytes (%) (Auto) 9.5 % (0.0-8.0) 8.7 % (0.0-8.0) Calcium Level 7.9 MG/DL (8.5-10.1) PE at Discharge GENERAL: Pleasant elderly female in no acute distress. HEENT: PERRLA, EOMI. No scleral icterus or conjunctival pallor. No lid lag or facial droop. CARDIOVASCULAR: Regular rate and rhythm. No obvious murmurs to auscultation. No chest tenderness to palpation. RESPIRATORY: No obvious rhonchi or wheezing. Clear to auscultation. Breath sounds equal bilaterally. GASTROINTESTINAL: Abdomen soft, mild generalized tenderness to palpation, nondistended. BS normal. MUSCULOSKELETAL: Extremities without clubbing, cyanosis, or edema. No obvious deformities. NEUROLOGICAL: Awake, alert and oriented x4. No focal neurologic deficits. Moving both upper and lower extremities spontaneously. Pt Condition on Discharge: Stable Discharge Disposition: Discharge Home Discharge Instructions DIET: Follow Instructions for: Heart Healthy Diet, Diabetic Diet Activities you can perform: Regular-No Restrictions Stella Black MD Aug 12, 2017 10:38
[2017-08-12] MEDS ORDERED: DILTIAZEM-CD 120 MG CAP ER PO ONE (10:45)
[2017-08-12 12:00] VITALS: BP 126/74; PULSE 88; RESP 16; TEMP 96.9; O2SAT 95
[2017-08-12 16:00] VITALS: BP 126/68; PULSE 89; RESP 18; TEMP 95.8; O2SAT 98
[2017-08-12 20:00] VITALS: BP 111/77; PULSE 90; RESP 18; TEMP 97.6; O2SAT 92
[2017-08-12] MEDS: ONDANSETRON HCL 4 MG/2 ML VIAL IVP PRN (20:08)
[2017-08-13] VITALS: BP 109/71; PULSE 80; RESP 16; TEMP 97.5; O2SAT 95
[2017-08-13] MEDS: SODIUM CHLOR 0.9% 1000 ML INJ 1,000 ML IV SCH ×2 (04:28→10:19)
[2017-08-13] MEDS: ONDANSETRON HCL 4 MG/2 ML VIAL IVP PRN (05:33)
[2017-08-13 06:24] LABS: BICARBONATE 23.1 MEQ/L (21.0-32.0); POTASSIUM 4.9 MEQ/L (3.5-5.1)
[2017-08-13 06:26] LABS: AUTOMATED NEUTROPHIL # 4.1 TH/MM3 (1.8-7.7); BASOPHIL % 0.2 % (0.0-2.0); EOSINOPHIL # 0.1 TH/MM3 (0-0.4); EOSINOPHIL % 1.9 % (0.0-4.0); HEMATOCRIT 43.1 % (35.0-46.0); HEMO FLAGS DIFF FINAL; LYMPH % 33.6 % (9.0-44.0); LYMPHOCYTE # 2.5 TH/MM3 (1.0-4.8); MEAN CELL VOLUME 99.7 FL (80.0-100.0); MEAN CORPUSCULAR HEMOGLOBIN 31.5 PG (27.0-34.0); MEAN CORPUSCULAR HGB CONC 31.6 % (32.0-36.0); NEUT % 56.3 % (16.0-70.0); PLATELET COUNT 199 TH/MM3 (150-450); RED BLOOD COUNT 4.33 MIL/MM3 (4.00-5.30); WHITE BLOOD COUNT 7.3 TH/MM3 (4.0-11.0)
[2017-08-13 08:00] VITALS: BP 109/70; PULSE 56; RESP 18; TEMP 96.3; O2SAT 98
--- NOTE | 2017-08-13 08:52 | HHI.PR ---
Subjective Remarks with nausea and vomiting, not tolerating well food kidney function improving had diarrhea in the morning. no fever or chill./ doesn't feel good Objective Vitals Vital Signs Date Time Temp Pulse Resp B/P (MAP) Pulse Ox O2 Delivery O2 Flow Rate FiO2 08/13/17 00:00 97.5 80 16 109/71 (84) 95 08/12/17 20:13 20 08/12/17 20:00 97.6 90 18 111/77 (88) 92 08/12/17 16:00 95.8 89 18 126/68 (87) 98 08/12/17 12:00 96.9 88 16 126/74 (91) 95 I/O 08/12/17 08/12/17 08/12/17 08/13/17 08/13/17 08/13/17 07:00 15:00 23:00 07:00 15:00 23:00 Intake Total 480 ml Output Total 20 ml Balance -20 ml 480 ml Intake Oral 480 ml Gastric Drainage Total 20 ml # Voids 0 3 1 # Bowel Movements 1 Result Diagram: 08/13/17 0500 08/13/17 0500 Imaging Last Impressions Small Bowel X-Ray 08/11/17 0000 Signed Impressions: Service Date/Time: Friday, August 11, 2017 13:40 - CONCLUSION: Persistent partial obstruction at the level of the mid small bowel. Rectocele. Antonio Hayes MD Abdomen/Pelvis CT [id number]/10/[id number] Signed Impressions: Service Date/Time: Thursday, August 10, 2017 20:57 - CONCLUSION: 1. Small bowel obstruction at the level of the distal jejunum or proximal ileum and appears to occur in the midabdomen. No mass or significant inflammatory changes are demonstrated, presumably obstruction related to adhesion. There is evidence of bowel resection and anastomosis in the right upper quadrant, and appears to be downstream of the obstruction. 2. Ventral hernia repair since the prior study. No recurrent defect. 3. Large staghorn calculus of the right kidney, not new but is associated with mild hydronephrosis currently. Antonio Hayes MD Abdomen X-Ray 08/10/17 0000 Signed Impressions: Service Date/Time: Thursday, August 10, 2017 22:14 - CONCLUSION: The NG tube is coiled at the level of the GE junction. Please see above. Antonio Hayes MD Objective Remarks GENERAL: Pleasant elderly female in no acute distress. HEENT: PERRLA, EOMI. No scleral icterus or conjunctival pallor. No lid lag or facial droop. CARDIOVASCULAR: Regular rate and rhythm. No obvious murmurs to auscultation. No chest tenderness to palpation. RESPIRATORY: No obvious rhonchi or wheezing. Clear to auscultation. Breath sounds equal bilaterally. GASTROINTESTINAL: Abdomen soft, mild generalized tenderness to palpation, nondistended. BS normal. MUSCULOSKELETAL: Extremities without clubbing, cyanosis, or edema. No obvious deformities. NEUROLOGICAL: Awake, alert and oriented x4. No focal neurologic deficits. Moving both upper and lower extremities spontaneously. A/P Problem List: (1) SBO (small bowel obstruction) ICD Code: K56.69 - Other intestinal obstruction (2) MATTHEW (acute kidney injury) ICD Code: N17.9 - Acute kidney failure, unspecified (3) UTI (urinary tract infection) ICD Code: N39.0 - Urinary tract infection, site not specified (4) A-fib ICD Code: I48.91 - Unspecified atrial fibrillation Assessment and Plan SBO: h/o Colon CA s/p Partial Colectomy/Liver Resection by Dr. Saldana 07/2016, now w/ abdominal pain, nausea/vomiting. CT Abd/Pelvis w/ small bowel obstruction at level of distal jejunum or proximal ileum, images reviewed by me. gen surgery consulted and ff. Conservative management. Had 3 large BM, however still with nausea and vomiting. NGT was removed 08/12 per surgeon and started po intake, doesn't tolerate well. VF, analgesics/antiemetics as needed. MATTHEW: Creatinine 1.62 on admission previously 0.76 on 08/28/16. IVF for hydration. Monitor kidney function. Improving. UTI: U/a positive for UTI. Start IV Cipro. IVF for hydration. A-fib: Paroxysmal. Controlled. Resume home Digoxin IV, hold Diltiazem for now as NPO. DVT Prophylaxis: SCD/Teds Case management consulted for d/c planning as needed. discussed with the patient, nurse. Not ready for dc kidney function not at baseline and patient still with nausea nad vomiting, diet per surgeon, DC when cleared by surgeon and kidney function back at baseline Stella Black MD Aug 13, 2017 08:52
[2017-08-13] MEDS: DOCUSATE SODIUM 50 MG/SENNA 8.6 MG TAB PO SCH ×2 (09:00→21:54)
[2017-08-13] MEDS: SODIUM CHLORIDE 0.9% FLUSH 10 ML FLUSH IV FLUSH SCH ×2 (09:00→21:55)
[2017-08-13] MEDS: RESP: ALBUTEROL 2.5 MG/IPRATROPIUM 0.5 MG NEB (SCH) INH ×4 (09:08→20:21)
[2017-08-13] MEDS: DILTIAZEM-CD 120 MG CAP ER PO SCH (10:20)
[2017-08-13] MEDS: DIGOXIN 0.25 MG TAB PO SCH (10:20)
--- NOTE | 2017-08-13 10:44 | HHI.PR ---
Subjective Subjective Notes "I have acid reflux after eating tomato soup last night" +BM Objective Vitals/I&O Vital Signs Date Time Temp Pulse Resp B/P (MAP) Pulse Ox O2 Delivery O2 Flow Rate FiO2 08/13/17 08:00 96.3 56 18 109/70 (83) 98 08/10/17 23:03 Room Air 08/10/17 18:16 4.00 Labs Laboratory Tests Test 08/13/17 05:00 White Blood Count 7.3 Red Blood Count 4.33 Hemoglobin 13.6 Hematocrit 43.1 Mean Corpuscular Volume 99.7 Mean Corpuscular Hemoglobin 31.5 Mean Corpuscular Hemoglobin Concent 31.6 Red Cell Distribution Width 15.0 Platelet Count 199 Mean Platelet Volume 8.9 Neutrophils (%) (Auto) 56.3 Lymphocytes (%) (Auto) 33.6 Monocytes (%) (Auto) 8.0 Eosinophils (%) (Auto) 1.9 Basophils (%) (Auto) 0.2 Neutrophils # (Auto) 4.1 Lymphocytes # (Auto) 2.5 Monocytes # (Auto) 0.6 Eosinophils # (Auto) 0.1 Basophils # (Auto) 0.0 CBC Comment DIFF FINAL Differential Comment Blood Urea Nitrogen 21 Creatinine 1.24 Random Glucose 81 Calcium Level 7.9 Sodium Level 133 Potassium Level 4.9 Chloride Level 103 Carbon Dioxide Level 23.1 Anion Gap 7 Estimat Glomerular Filtration Rate 51 Date/Time Source Procedure Growth Status 08/10/17 21:14 Urine Clean Catch Urine Culture - Final 50-100,000 CFU/ML MIXED NASIM... Complete Cardiovascular: Regular Lungs: Clear Abdomen: Non-distended, Non-tender Extremities: Other (RIGHT arm edema ) A/P Assessment and Plan 77 year old female with PSBO vs ileus -+BM -Encouraged more bland meals to reduce acid reflex -OOB and mobilize -DC IVF -Renal function up some I CERTIFY AND ATTEST THAT I PERSONALLY EXAMINED THE PATIENT IN THEIR ROOM. MS LOWE DOCUMENTED OUR VISIT AND ENTERED ORDERS IN THE EMR UNDER MY DIRECT SUPERVISION. I REVIEWED THE CARE PLAN WITH THE NURSING STAFF, THE PATIENT AND THEIR FAMILY. KENJI YOUNG MD FACS Marnie Lowe Aug 13, 2017 10:44 Kenji Young. Aug 14, 2017 13:27
[2017-08-13] MEDS ORDERED: SODIUM CHLOR 0.9% 1000 ML INJ 1,000 ML IV SCH (11:00)
[2017-08-13 12:00] VITALS: BP 120/76; PULSE 73; RESP 16; TEMP 96.1; O2SAT 94
[2017-08-13 16:00] VITALS: BP 110/60; PULSE 78; RESP 18; TEMP 97.8; O2SAT 94
[2017-08-13 20:00] VITALS: BP 139/75; PULSE 68; RESP 18; TEMP 95.7; O2SAT 95
[2017-08-13 20:29] VITALS: O2SAT 91
[2017-08-14] VITALS (9 sets, daily range): BP systolic 114–148; BP diastolic 66–85; PULSE 56–87; RESP 16–18; TEMP 95.6–99; O2SAT 95–100
[2017-08-14] MEDS: MORPHINE SULFATE 4 MG/ML INJ IV PUSH PRN (01:20)
[2017-08-14 07:53] LABS: AUTOMATED NEUTROPHIL # 2.9 TH/MM3 (1.8-7.7); BASOPHIL % 0.2 % (0.0-2.0); EOSINOPHIL # 0.1 TH/MM3 (0-0.4); EOSINOPHIL % 2.5 % (0.0-4.0); HEMATOCRIT 42.2 % (35.0-46.0); HEMO FLAGS DIFF FINAL; LYMPH % 36.8 % (9.0-44.0); MEAN CELL VOLUME 99.2 FL (80.0-100.0); MEAN CORPUSCULAR HGB CONC 32.3 % (32.0-36.0); MONO % 7.6 % (0.0-8.0); NEUT % 52.9 % (16.0-70.0); PLATELET COUNT 206 TH/MM3 (150-450); RED BLOOD COUNT 4.26 MIL/MM3 (4.00-5.30); RED CELL DISTRIBUTION WIDTH 14.8 % (11.6-17.2); WHITE BLOOD COUNT 5.5 TH/MM3 (4.0-11.0)
[2017-08-14 08:21] LABS: ALKALINE PHOSPHATASE 106 U/L (45-117); ALT (GPT) 34 U/L (10-53); ANION GAP 4 MEQ/L (5-15); AST (GOT) 35 U/L (15-37); BLOOD UREA NITROGEN 21 MG/DL (7-18); CHLORIDE 102 MEQ/L (98-107); GLOMERULAR FILTRATION RATE 49 ML/MIN (>89); POTASSIUM 3.2 MEQ/L (3.5-5.1); SODIUM (NA) 137 MEQ/L (136-145); TOTAL BILIRUBIN ADULT 0.7 MG/DL (0.2-1.0)
[2017-08-14] MEDS: RESP: ALBUTEROL 2.5 MG/IPRATROPIUM 0.5 MG NEB (SCH) INH ×4 (08:43→19:59)
--- NOTE | 2017-08-14 09:37 | HHI.PR ---
Subjective Remarks In bed, says she feels weak. No more nausea and vomiting. However she is not able to eat much. No fever or chills. Less abdominal pain. Did not have a BM today. Objective Vitals Vital Signs Date Time Temp Pulse Resp B/P (MAP) Pulse Ox O2 Delivery O2 Flow Rate FiO2 08/14/17 08:45 98 Nasal Cannula 2.00 08/14/17 08:00 96.0 64 18 138/81 (100) 100 08/14/17 00:00 97.5 85 17 148/73 (98) 95 08/13/17 20:29 91 Nasal Cannula 2.00 08/13/17 20:00 95.7 68 18 139/75 (96) 95 08/13/17 16:00 97.8 78 18 110/60 (77) 94 08/13/17 12:00 96.1 73 16 120/76 (91) 94 I/O 08/13/17 08/13/17 08/13/17 08/14/17 08/14/17 08/14/17 07:00 15:00 23:00 07:00 15:00 23:00 Intake Total 2229 ml 240 ml Balance 2229 ml 240 ml Intake Oral 800 ml 240 ml IV Total 1429 ml # Voids 1 3 1 # Bowel Movements 0 Result Diagram: 08/14/1770408/14/17704 Imaging Last Impressions Small Bowel X-Ray 08/11/17 0000 Signed Impressions: Service Date/Time: Friday, August 11, 2017 13:40 - CONCLUSION: Persistent partial obstruction at the level of the mid small bowel. Rectocele. Antonio Hayes MD Abdomen/Pelvis CT 08/10/[id number] Signed Impressions: Service Date/Time: Thursday, August 10, 2017 20:57 - CONCLUSION: 1. Small bowel obstruction at the level of the distal jejunum or proximal ileum and appears to occur in the midabdomen. No mass or significant inflammatory changes are demonstrated, presumably obstruction related to adhesion. There is evidence of bowel resection and anastomosis in the right upper quadrant, and appears to be downstream of the obstruction. 2. Ventral hernia repair since the prior study. No recurrent defect. 3. Large staghorn calculus of the right kidney, not new but is associated with mild hydronephrosis currently. Antonio Hayes MD Abdomen X-Ray 08/10/17 0000 Signed Impressions: Service Date/Time: Thursday, August 10, 2017 22:14 - CONCLUSION: The NG tube is coiled at the level of the GE junction. Please see above. Antonio Hayes MD Objective Remarks GENERAL: Pleasant elderly female in no acute distress. HEENT: PERRLA, EOMI. No scleral icterus or conjunctival pallor. No lid lag or facial droop. CARDIOVASCULAR: Regular rate and rhythm. No obvious murmurs to auscultation. No chest tenderness to palpation. RESPIRATORY: No obvious rhonchi or wheezing. Clear to auscultation. Breath sounds equal bilaterally. GASTROINTESTINAL: Abdomen soft, mild generalized tenderness to palpation, nondistended. BS normal. MUSCULOSKELETAL: Extremities without clubbing, cyanosis, or edema. No obvious deformities. NEUROLOGICAL: Awake, alert and oriented x4. No focal neurologic deficits. Moving both upper and lower extremities spontaneously. A/P Problem List: (1) SBO (small bowel obstruction) ICD Code: K56.69 - Other intestinal obstruction (2) MATTHEW (acute kidney injury) ICD Code: N17.9 - Acute kidney failure, unspecified (3) UTI (urinary tract infection) ICD Code: N39.0 - Urinary tract infection, site not specified (4) A-fib ICD Code: I48.91 - Unspecified atrial fibrillation Assessment and Plan SBO: h/o Colon CA s/p Partial Colectomy/Liver Resection by Dr. Saldana 07/2016, now w/ abdominal pain, nausea/vomiting. CT Abd/Pelvis w/ small bowel obstruction at level of distal jejunum or proximal ileum, images reviewed by me. gen surgery consulted and ff. Conservative management. Had 3 large BM, however still with nausea and vomiting. NGT was removed 08/12 per surgeon and started po intake, doesn't tolerate well. VF, analgesics/antiemetics as needed. MATTHEW: Creatinine 1.62 on admission previously 0.76 on 08/28/16. IVF for hydration. Monitor kidney function. Improving but not at baseline. Encourage PO intake,. cont IVF Hypokalemia: Monitor and replace. Encourage PO intake UTI: U/a positive for UTI. Start IV Cipro. IVF for hydration. A-fib: Paroxysmal. Controlled. Resume home Digoxin IV, hold Diltiazem for now as NPO. DVT Prophylaxis: SCD/Teds Case management consulted for d/c planning as needed. discussed with the patient, nurse. Not ready for dc kidney function not at baseline, patient is not eating well, with hypokalemia, she is tired. Cont diet per surgeon, DC when cleared by surgeon and kidney function back at baseline Stella Black MD Aug 14, 2017 09:37
[2017-08-14] MEDS ORDERED: POTASSIUM CHLORIDE 10 MEQ CONTROLLED RELEASE TAB PO ONE (09:45)
[2017-08-14] MEDS: DILTIAZEM-CD 120 MG CAP ER PO SCH (09:48)
[2017-08-14] MEDS: DOCUSATE SODIUM 50 MG/SENNA 8.6 MG TAB PO SCH ×2 (09:49→20:32)
[2017-08-14] MEDS: SODIUM CHLORIDE 0.9% FLUSH 10 ML FLUSH IV FLUSH SCH ×2 (09:51→20:32)
[2017-08-14] MEDS: DIGOXIN 0.25 MG TAB PO SCH (10:14)
[2017-08-14] MEDS: SODIUM CHLOR 0.9% 1000 ML INJ 1,000 ML IV SCH ×2 (10:14→17:51)
--- NOTE | 2017-08-14 11:36 | HHI.PR ---
Subjective Subjective Notes Resting in bed No acute issues overnight Objective Vitals/I&O Vital Signs Date Time Temp Pulse Resp B/P (MAP) Pulse Ox O2 Delivery O2 Flow Rate FiO2 08/14/17 09:30 97.1 70 18 137/80 (99) 99 08/14/17 08:45 Nasal Cannula 2.00 Labs Laboratory Tests Test 08/14/17 07:05 White Blood Count 5.5 Red Blood Count 4.26 Hemoglobin 13.6 Hematocrit 42.2 Mean Corpuscular Volume 99.2 Mean Corpuscular Hemoglobin 32.0 Mean Corpuscular Hemoglobin Concent 32.3 Red Cell Distribution Width 14.8 Platelet Count 206 Mean Platelet Volume 8.9 Neutrophils (%) (Auto) 52.9 Lymphocytes (%) (Auto) 36.8 Monocytes (%) (Auto) 7.6 Eosinophils (%) (Auto) 2.5 Basophils (%) (Auto) 0.2 Neutrophils # (Auto) 2.9 Lymphocytes # (Auto) 2.0 Monocytes # (Auto) 0.4 Eosinophils # (Auto) 0.1 Basophils # (Auto) 0.0 CBC Comment DIFF FINAL Differential Comment Blood Urea Nitrogen 21 Creatinine 1.28 Random Glucose 83 Total Protein 7.2 Albumin 2.8 Calcium Level 8.2 Alkaline Phosphatase 106 Aspartate Amino Transf (AST/SGOT) 35 Alanine Aminotransferase (ALT/SGPT) 34 Total Bilirubin 0.7 Sodium Level 137 Potassium Level 3.2 Chloride Level 102 Carbon Dioxide Level 31.0 Anion Gap 4 Estimat Glomerular Filtration Rate 49 Date/Time Source Procedure Growth Status 08/10/17 21:14 Urine Clean Catch Urine Culture - Final 50-100,000 CFU/ML MIXED NASIM... Complete Cardiovascular: Regular Lungs: Clear Abdomen: Other (soft non tender) Extremities: No edema A/P Assessment and Plan 77 year old female with PSBO vs ileus -+BM -Tolerating regular diet -OOB and mobilize -No operative plans at this time I CERTIFY AND ATTEST THAT I PERSONALLY EXAMINED THE PATIENT IN THEIR ROOM. MS LOWE DOCUMENTED OUR VISIT AND ENTERED ORDERS IN THE EMR UNDER MY DIRECT SUPERVISION. I REVIEWED THE CARE PLAN WITH THE NURSING STAFF, THE PATIENT AND THEIR FAMILY. KENJI YOUNG MD FACS Marnie LoweP Aug 14, 2017 11:36 Kenji Young MD Aug 14, 2017 13:29
[2017-08-14] MEDS: CALCIUM CARBONATE 500 MG CHEWABLE TAB CHEW PRN (20:31)
[2017-08-15] VITALS (7 sets, daily range): BP systolic 124–145; BP diastolic 62–75; PULSE 62–88; RESP 17–20; TEMP 95.6–98.9; O2SAT 96–99
[2017-08-15] MEDS: CALCIUM CARBONATE 500 MG CHEWABLE TAB CHEW PRN ×4 (01:16→23:15)
[2017-08-15] MEDS: SODIUM CHLOR 0.9% 1000 ML INJ 1,000 ML IV SCH ×3 (01:17→23:16)
[2017-08-15] MEDS: MORPHINE SULFATE 4 MG/ML INJ IV PUSH PRN ×2 (04:34→20:48)
[2017-08-15] MEDS ORDERED: PANTOPRAZOLE SODIUM 40 MG VIAL IV PUSH ONE (05:45)
[2017-08-15] MEDS: RESP: ALBUTEROL 2.5 MG/IPRATROPIUM 0.5 MG NEB (SCH) INH (07:37)
[2017-08-15 07:40] LABS: BICARBONATE 28.8 MEQ/L (21.0-32.0); POTASSIUM 3.7 MEQ/L (3.5-5.1)
[2017-08-15 08:07] LABS: AUTOMATED NEUTROPHIL # 2.8 TH/MM3 (1.8-7.7); BASOPHIL % 0.2 % (0.0-2.0); EOSINOPHIL # 0.1 TH/MM3 (0-0.4); EOSINOPHIL % 1.4 % (0.0-4.0); HEMATOCRIT 43.2 % (35.0-46.0); HEMO FLAGS DIFF FINAL; LYMPHOCYTE # 1.4 TH/MM3 (1.0-4.8); MEAN CELL VOLUME 99.7 FL (80.0-100.0); MEAN CORPUSCULAR HGB CONC 32.1 % (32.0-36.0); MONO % 9.2 % (0.0-8.0); NEUT % 59.2 % (16.0-70.0); PLATELET COUNT 188 TH/MM3 (150-450); RED BLOOD COUNT 4.33 MIL/MM3 (4.00-5.30); WHITE BLOOD COUNT 4.7 TH/MM3 (4.0-11.0)
[2017-08-15] MEDS: DIGOXIN 0.25 MG TAB PO SCH (08:08)
[2017-08-15] MEDS: DILTIAZEM-CD 120 MG CAP ER PO SCH (08:08)
[2017-08-15] MEDS: PANTOPRAZOLE SOD 40 MG DELAYED RELEASE TAB PO SCH (08:08)
[2017-08-15] MEDS: SODIUM CHLORIDE 0.9% FLUSH 10 ML FLUSH IV FLUSH SCH ×2 (08:08→20:48)
[2017-08-15] MEDS: DOCUSATE SODIUM 50 MG/SENNA 8.6 MG TAB PO SCH ×2 (08:08→20:48)
[2017-08-15] MEDS: POLYETHYLENE GLYCOL 17 GM PKG PO SCH (09:49)
[2017-08-15] MEDS: DOCUSATE SODIUM 100 MG CAP PO SCH ×2 (09:49→20:48)
--- NOTE | 2017-08-15 10:42 | HHI.PR ---
Subjective Remarks Still with nausea, no vomiting, says she did not have a BM since 2 days. Says her belly is distended and has some diffuse abd pain however improved since she came. Able to keep down food. Objective Vitals Vital Signs Date Time Temp Pulse Resp B/P (MAP) Pulse Ox O2 Delivery O2 Flow Rate FiO2 08/15/17 08:00 95.6 62 18 136/75 (95) 99 08/15/17 07:37 98 Nasal Cannula 1.00 08/15/17 04:00 96.1 88 20 127/75 (92) 97 08/15/17 00:00 98.7 81 17 124/62 (82) 98 08/14/17 20:00 99.0 87 18 138/66 (90) 98 08/14/17 16:23 98 Nasal Cannula 2.00 08/14/17 16:00 95.6 56 18 114/85 (95) 100 08/14/17 13:00 96.9 78 16 116/72 (87) 98 08/14/17 12:00 97.0 80 18 122/82 (95) 99 I/O 08/14/17 08/14/17 08/14/17 08/15/17 08/15/17 08/15/17 07:00 15:00 23:00 07:00 15:00 23:00 Intake Total 240 ml 720 ml 1080 ml 2148 ml Balance 240 ml 720 ml 1080 ml 2148 ml Intake Oral 240 ml 720 ml 1080 ml 240 ml IV Total 1908 ml # Voids 1 2 5 3 # Bowel Movements 0 0 Result Diagram: 08/15/17 0530 08/15/17 0530 Imaging Last Impressions Small Bowel X-Ray 08/11/17 0000 Signed Impressions: Service Date/Time: Friday, August 11, 2017 13:40 - CONCLUSION: Persistent partial obstruction at the level of the mid small bowel. Rectocele. Antonio Hayes MD Abdomen/Pelvis CT 08/10/17 1928 Signed Impressions: Service Date/Time: Thursday, August 10, 2017 20:57 - CONCLUSION: 1. Small bowel obstruction at the level of the distal jejunum or proximal ileum and appears to occur in the midabdomen. No mass or significant inflammatory changes are demonstrated, presumably obstruction related to adhesion. There is evidence of bowel resection and anastomosis in the right upper quadrant, and appears to be downstream of the obstruction. 2. Ventral hernia repair since the prior study. No recurrent defect. 3. Large staghorn calculus of the right kidney, not new but is associated with mild hydronephrosis currently. Antonio Hayes MD Abdomen X-Ray 08/10/17 0000 Signed Impressions: Service Date/Time: Thursday, August 10, 2017 22:14 - CONCLUSION: The NG tube is coiled at the level of the GE junction. Please see above. Antonio Hayes MD Objective Remarks GENERAL: Pleasant elderly female in no acute distress. HEENT: PERRLA, EOMI. No scleral icterus or conjunctival pallor. No lid lag or facial droop. CARDIOVASCULAR: Regular rate and rhythm. No obvious murmurs to auscultation. No chest tenderness to palpation. RESPIRATORY: No obvious rhonchi or wheezing. Clear to auscultation. Breath sounds equal bilaterally. GASTROINTESTINAL: Abdomen soft, mild generalized tenderness to palpation, nondistended. BS normal. MUSCULOSKELETAL: Extremities without clubbing, cyanosis, or edema. No obvious deformities. NEUROLOGICAL: Awake, alert and oriented x4. No focal neurologic deficits. Moving both upper and lower extremities spontaneously. A/P Problem List: (1) SBO (small bowel obstruction) ICD Code: K56.69 - Other intestinal obstruction (2) MATTHEW (acute kidney injury) ICD Code: N17.9 - Acute kidney failure, unspecified (3) UTI (urinary tract infection) ICD Code: N39.0 - Urinary tract infection, site not specified (4) A-fib ICD Code: I48.91 - Unspecified atrial fibrillation Assessment and Plan SBO: h/o Colon CA s/p Partial Colectomy/Liver Resection by Dr. Saldana 07/2016, now w/ abdominal pain, nausea/vomiting. CT Abd/Pelvis w/ small bowel obstruction at level of distal jejunum or proximal ileum, images reviewed by me. gen surgery consulted and ff. Conservative management. Had 3 large BM, however still with nausea and vomiting. NGT was removed 08/12 per surgeon and started po intake, doesn't tolerate well. VF, analgesics/antiemetics as needed. 08/15 with abdominal distention , diffuse pain, no BM, nause. Discussed with surgical team, will do KUB, added lax/stool softeners. MATTHEW: Creatinine 1.62 on admission previously 0.76 on 08/28/16. IVF for hydration. Monitor kidney function. Improving but not at baseline. Encourage PO intake, cont IVF Hypokalemia: Monitor and replace. Encourage PO intake UTI: U/a positive for UTI. Start IV Cipro. IVF for hydration. A-fib: Paroxysmal. Controlled. Resume home Digoxin IV, hold Diltiazem for now as NPO. DVT Prophylaxis: SCD/Teds Case management consulted for d/c planning as needed. discussed with the patient, nurse, surgical team. DC plan: plan for KUB, if has a BM today might be DC. Patient is considering SNF as she doesn't fee comfortable to go home. [id number] signed. Stella Black MD Aug 15, 2017 10:42
--- NOTE | 2017-08-15 13:26 | HHI.PR ---
Subjective Subjective Notes "I can't go home today! My stomach still hurts!" Objective Vitals/I&O Vital Signs Date Time Temp Pulse Resp B/P (MAP) Pulse Ox O2 Delivery O2 Flow Rate FiO2 08/15/17 12:00 95.6 77 18 129/66 (87) 96 08/15/17 07:37 Nasal Cannula 1.00 Labs Laboratory Tests Test 08/15/17 05:30 White Blood Count 4.7 Red Blood Count 4.33 Hemoglobin 13.8 Hematocrit 43.2 Mean Corpuscular Volume 99.7 Mean Corpuscular Hemoglobin 32.0 Mean Corpuscular Hemoglobin Concent 32.1 Red Cell Distribution Width 15.0 Platelet Count 188 Mean Platelet Volume 9.1 Neutrophils (%) (Auto) 59.2 Lymphocytes (%) (Auto) 30.0 Monocytes (%) (Auto) 9.2 Eosinophils (%) (Auto) 1.4 Basophils (%) (Auto) 0.2 Neutrophils # (Auto) 2.8 Lymphocytes # (Auto) 1.4 Monocytes # (Auto) 0.4 Eosinophils # (Auto) 0.1 Basophils # (Auto) 0.0 CBC Comment DIFF FINAL Differential Comment Blood Urea Nitrogen 18 Creatinine 1.04 Random Glucose 85 Calcium Level 8.2 Sodium Level 136 Potassium Level 3.7 Chloride Level 102 Carbon Dioxide Level 28.8 Anion Gap 5 Estimat Glomerular Filtration Rate 63 Date/Time Source Procedure Growth Status 08/10/17 21:14 Urine Clean Catch Urine Culture - Final 50-100,000 CFU/ML MIXED NASIM... Complete Cardiovascular: Regular Lungs: Clear Abdomen: Other (soft but mildly distended; minimally tender to palpation ) Extremities: No edema A/P Assessment and Plan 77 year old female with PSBO vs ileus -No BM for several days -Added cathartics -Tolerating regular diet -OOB and mobilize -DC when +BM and distention improved -No operative plans at this time I CERTIFY AND ATTEST THAT I PERSONALLY EXAMINED THE PATIENT. MS LOWE DOCUMENTED OUR VISIT AND ENTERED ORDERS IN THE EMR UNDER MY DIRECT SUPERVISION. I REVIEWED THE CARE PLAN WITH THE PATIENT AND FAMILY. KENJI Lowe,Marnie B. [employer]CH HAND SUPERVISOR Aug 15, 2017 13:26 Kenji Saldana MD Aug 21, 2017 17:05
[2017-08-15] MEDS: MAGNESIUM HYDROXIDE SUSP 30 ML CUP PO PRN (14:50)
[2017-08-15] MEDS: ONDANSETRON HCL 4 MG/2 ML VIAL IVP PRN (19:06)
[2017-08-15] MEDS ORDERED: BISACODYL 10 MG SUPP RECTAL ONE (19:15)
[2017-08-16] MEDS: MORPHINE SULFATE 4 MG/ML INJ IV PUSH PRN ×4 (00:01→22:38)
[2017-08-16 00:38] VITALS: BP 142/71; PULSE 82; RESP 20; TEMP 97.4; O2SAT 97
[2017-08-16] MEDS: CALCIUM CARBONATE 500 MG CHEWABLE TAB CHEW PRN (05:40)
[2017-08-16 08:00] VITALS: BP 142/64; PULSE 83; RESP 17; TEMP 96.3; O2SAT 99
[2017-08-16] MEDS: SODIUM CHLORIDE 0.9% FLUSH 10 ML FLUSH IV FLUSH SCH ×2 (09:00→19:58)
[2017-08-16] MEDS: DOCUSATE SODIUM 100 MG CAP PO SCH ×2 (09:23→19:57)
[2017-08-16] MEDS: DILTIAZEM-CD 120 MG CAP ER PO SCH (09:23)
[2017-08-16] MEDS: DOCUSATE SODIUM 50 MG/SENNA 8.6 MG TAB PO SCH ×2 (09:23→19:57)
[2017-08-16] MEDS: PANTOPRAZOLE SOD 40 MG DELAYED RELEASE TAB PO SCH (09:23)
[2017-08-16] MEDS: DIGOXIN 0.25 MG TAB PO SCH (09:24)
[2017-08-16] MEDS: POLYETHYLENE GLYCOL 17 GM PKG PO SCH (09:24)
[2017-08-16 12:00] VITALS: BP 139/82; PULSE 81; RESP 17; TEMP 96; O2SAT 99
--- NOTE | 2017-08-16 12:37 | HHI.PR ---
Subjective Remarks Had a small BM . Still with abd pain and distention, not cleared by surg for dc. No fever or chills. No n/v/d/c. Objective Vitals Vital Signs Date Time Temp Pulse Resp B/P (MAP) Pulse Ox O2 Delivery O2 Flow Rate FiO2 08/16/17 08:00 96.3 83 17 142/64 (90) 99 08/16/17 00:38 97.4 82 20 142/71 (94) 97 08/15/17 20:38 98.9 87 18 136/68 (90) 96 08/15/17 16:00 97.8 83 19 145/69 (94) 96 I/O 08/15/17 08/15/17 08/15/17 08/16/17 08/16/17 08/16/17 07:00 15:00 23:00 07:00 15:00 23:00 Intake Total 2148 ml 480 ml 2665 ml Output Total 550 ml Balance 2148 ml -70 ml 2665 ml Intake Oral 240 ml 480 ml 480 ml IV Total 1908 ml 2185 ml Emesis 550 ml # Voids 3 3 2 # Bowel Movements 0 2 Result Diagram: 08/15/17 0530 08/15/17 0530 Imaging Last Impressions Small Bowel X-Ray 08/11/17 0000 Signed Impressions: Service Date/Time: Friday, August 11, 2017 13:40 - CONCLUSION: Persistent partial obstruction at the level of the mid small bowel. Rectocele. Antonio Hayes MD Abdomen/Pelvis CT 08/10/17 1928 Signed Impressions: Service Date/Time: Thursday, August 10, 2017 20:57 - CONCLUSION: 1. Small bowel obstruction at the level of the distal jejunum or proximal ileum and appears to occur in the midabdomen. No mass or significant inflammatory changes are demonstrated, presumably obstruction related to adhesion. There is evidence of bowel resection and anastomosis in the right upper quadrant, and appears to be downstream of the obstruction. 2. Ventral hernia repair since the prior study. No recurrent defect. 3. Large staghorn calculus of the right kidney, not new but is associated with mild hydronephrosis currently. Antonio Hayes MD Abdomen X-Ray 08/10/17 0000 Signed Impressions: Service Date/Time: Thursday, August 10, 2017 22:14 - CONCLUSION: The NG tube is coiled at the level of the GE junction. Please see above. Antonio Hayes MD Objective Remarks GENERAL: Pleasant elderly female in no acute distress. HEENT: PERRLA, EOMI. No scleral icterus or conjunctival pallor. No lid lag or facial droop. CARDIOVASCULAR: Regular rate and rhythm. No obvious murmurs to auscultation. No chest tenderness to palpation. RESPIRATORY: No obvious rhonchi or wheezing. Clear to auscultation. Breath sounds equal bilaterally. GASTROINTESTINAL: Abdomen soft, mild generalized tenderness to palpation, mildly distended. BS normal. MUSCULOSKELETAL: Extremities without clubbing, cyanosis, or edema. No obvious deformities. NEUROLOGICAL: Awake, alert and oriented x4. No focal neurologic deficits. Moving both upper and lower extremities spontaneously. A/P Problem List: (1) SBO (small bowel obstruction) ICD Code: K56.69 - Other intestinal obstruction (2) MATTHEW (acute kidney injury) ICD Code: N17.9 - Acute kidney failure, unspecified (3) UTI (urinary tract infection) ICD Code: N39.0 - Urinary tract infection, site not specified (4) A-fib ICD Code: I48.91 - Unspecified atrial fibrillation Assessment and Plan SBO: h/o Colon CA s/p Partial Colectomy/Liver Resection by Dr. Saldana 07/2016, now w/ abdominal pain, nausea/vomiting. CT Abd/Pelvis w/ small bowel obstruction at level of distal jejunum or proximal ileum, images reviewed by me. gen surgery consulted and ff. Conservative management. Had 3 large BM, however still with nausea and vomiting. NGT was removed 08/12 per surgeon and started po intake, doesn't tolerate well. VF, analgesics/antiemetics as needed. 08/15 with abdominal distention , diffuse pain, no BM, nause. Discussed with surgical team, will do KUB, added lax/stool softeners. KUB reviewed still with persistent partial SBO Diet per surgeon MATTHEW: Creatinine 1.62 on admission previously 0.76 on 08/28/16. IVF for hydration. Monitor kidney function. Improving but not at baseline. Encourage PO intake, cont IVF Hypokalemia: Monitor and replace. Encourage PO intake UTI: U/a positive for UTI. Start IV Cipro. IVF for hydration. A-fib: Paroxysmal. Controlled. Resume home Digoxin IV, hold Diltiazem for now as NPO. DVT Prophylaxis: SCD/Teds Case management consulted for d/c planning as needed. discussed with the patient, nurse, surgical team. DC plan: plan for KUB reviewed still with persistent PBO, diet per surgeon. DC when cleared by surgeon Patient is considering SNF as she doesn't fee comfortable to go home. [id number] signed. Stella Black MD Aug 16, 2017 12:37
--- NOTE | 2017-08-16 15:29 | HHI.PR ---
Subjective Subjective Notes Resting in bed Had BM last night and small one this AM Thirsty but not hungry Objective Vitals/I&O Vital Signs Date Time Temp Pulse Resp B/P (MAP) Pulse Ox O2 Delivery O2 Flow Rate FiO2 08/16/17 12:00 96.0 81 17 139/82 (101) 99 08/15/17 07:37 Nasal Cannula 1.00 Labs Date/Time Source Procedure Growth Status 08/10/17 21:14 Urine Clean Catch Urine Culture - Final 50-100,000 CFU/ML MIXED NASIM... Complete Cardiovascular: Regular Lungs: Clear Abdomen: Other (distended; mildly tender to palpation ) Extremities: No edema A/P Assessment and Plan 77 year old female with PSBO vs ileus -+ BM s/p suppository -Clear liquids for now -May re-image tomorrow if no improvement -OOB and mobilize -Will continue to follow I CERTIFY AND ATTEST THAT I PERSONALLY EXAMINED THE PATIENT IN THEIR ROOM MISS LOWE DOCUMENTED OUR VISIT AND ENTERED ORDERS IN THE EMR UNDER MY DIRECT SUPERVISION. I DISCUSSED THE CARE PLAN WITH THE PATIENT AND THEIR FAMILY KENJI YOUNG MD FACS Marnie Lowe Aug 16, 2017 15:29 Kenji Young MD Aug 24, 2017 14:17
[2017-08-16 16:00] VITALS: BP 143/85; PULSE 79; RESP 17; TEMP 96.8; O2SAT 98
[2017-08-16 20:00] VITALS: BP 123/76; PULSE 78; RESP 20; TEMP 96.3; O2SAT 98
--- NOTE | 2017-08-16 21:56 | HHI.PR ---
Addendum to Inpatient Note Addendum Reason: Additional Documentation Additional Information Called by nursing; patient having centralized chest pain worsened with inspiration; now awaiting updated vital signs from nursing staff (most recent vitals from 1999); have placed order for Nitro SL to be given only if SBP > 110 , order for the following labs: CBC, BMP, Mag, Troponin I, CPK, and D Dimer; and STAT 12 lead EKG ordered. Will follow results and vitals. Lien Scott Aug 16, 2017 21:56
[2017-08-16 22:00] VITALS: BP 144/63; PULSE 84; RESP 20; TEMP 97.3; O2SAT 96
[2017-08-16] MEDS ORDERED: NITROGLYCERIN 0.4 MG SL 25 TABS/BTL SL ONE (22:00)
[2017-08-16] MEDS ORDERED: MORPHINE SULFATE 4 MG/ML INJ IV PUSH ONE (22:45)
[2017-08-17] VITALS: BP 139/94; PULSE 85; RESP 23; TEMP 96.1; O2SAT 99
[2017-08-17 00:40] LABS: AUTOMATED NEUTROPHIL # 3.9 TH/MM3 (1.8-7.7); BASOPHIL % 0.1 % (0.0-2.0); EOSINOPHIL % 0.6 % (0.0-4.0); HEMATOCRIT 40.9 % (35.0-46.0); HEMO FLAGS DIFF FINAL; LYMPH % 21.5 % (9.0-44.0); LYMPHOCYTE # 1.2 TH/MM3 (1.0-4.8); MEAN CELL VOLUME 98.4 FL (80.0-100.0); MEAN CORPUSCULAR HEMOGLOBIN 32.1 PG (27.0-34.0); MEAN CORPUSCULAR HGB CONC 32.6 % (32.0-36.0); MONO % 8.3 % (0.0-8.0); NEUT % 69.5 % (16.0-70.0); PLATELET COUNT 212 TH/MM3 (150-450); RED BLOOD COUNT 4.16 MIL/MM3 (4.00-5.30); RED CELL DISTRIBUTION WIDTH 14.8 % (11.6-17.2); WHITE BLOOD COUNT 5.7 TH/MM3 (4.0-11.0)
[2017-08-17 00:57] LABS: BICARBONATE 29.2 MEQ/L (21.0-32.0); POTASSIUM 4.2 MEQ/L (3.5-5.1)
[2017-08-17] MEDS ORDERED: IOHEXOL 350 MG/ML 10 ML VIAL (for RAD DIAG) IVCONTRAST ONE (03:20)
--- NOTE | 2017-08-17 03:33 | RADRPT ---
EXAM DATE/TIME: 08/17/2017 02:57 [facility] COMPARISON: No previous studies available for comparison. INDICATIONS : Shortness of breath with chest pain. Elevated D-Dimer. IV CONTRAST: 75 cc Omnipaque 350 (iohexol) IV RADIATION DOSE: 22.41 CTDIvol (mGy) MEDICAL HISTORY : Renal calculi. SURGICAL HISTORY : Tubal ligation. Hernia repair. ENCOUNTER: Initial ACUITY: 1 day PAIN SCALE: 6/10 LOCATION: chest TECHNIQUE: Volumetric scanning of the chest was performed using a pulmonary embolism protocol MIP images were re constructed. Using automated exposure control and adjustment of the mA and/or kV according to patien t size, radiation dose was kept as low as reasonably achievable to obtain optimal diagnostic quality images. DICOM format image data is available electronically for review and comparison. Follow-up recommendations for detected pulmonary nodules are based at a minimum on nodule size and pa tient risk factors according to Fleischner Society Guidelines. FINDINGS: PULMONARY ARTERIES: No filling defects are seen in the pulmonary arteries through the segmental level. LUNGS: There are 2 masses in the anterior right upper lung, measuring 1.9 cm and 0.7 cm. There is central b ronchiectasis with in the mid and upper lungs bilaterally. There is consolidative opacity in the lef t lower lung without air bronchograms. PLEURAE: There is no pleural thickening or pleural effusion. MEDIASTINUM: There is good visualization of the great vessels of the middle mediastinum. No evidence of mediastin al or hilar adenopathy/mass. AXILLA: Several prominent low left axillary nodes, the largest measuring 2.0 cm located in the low mid axilla ry line. CONCLUSION: 1. The study is negative for pulmonary embolism. 2. Abnormal appearance to both lungs with 2 smooth margin no masses in the anterior upper right lung and a prominent area of opacity in the posterior left lower lung without air bronchograms. Cannot ex clude malignancy. 3. Low left axillary adenopathy. Juan Carlos Carroll MD on August 17, 2017 at 3:25 Board Certified Radiologist. This report was verified electronically.
[2017-08-17 04:00] VITALS: BP 123/76; PULSE 77; RESP 23; TEMP 96.5; O2SAT 99
[2017-08-17 08:00] VITALS: BP 138/81; PULSE 85; RESP 18; TEMP 96.9; O2SAT 94
--- NOTE | 2017-08-17 10:38 | RADRPT ---
EXAM DATE/TIME: 08/17/2017 10:25 [facility] COMPARISON: CT ABDOMEN & PELVIS W CONTRAST, August 10, 2017, 20:57. ABDOMEN SINGLE VIEW, August 10, 2017, 22:14. INDICATIONS : Abdominal pain. Ileus vs. small bowel obstruction. MEDICAL HISTORY : Arthritis. Renal calculi. Asthma. SURGICAL HISTORY : Tubal ligation. Hernia repair. ENCOUNTER: Subsequent ACUITY: 2 weeks PAIN SCORE: 8/10 LOCATION: abdomen FINDINGS: Nasogastric tube has been removed. There is contrast in the colon. Right kidney staghorn calculus is appreciated. Contrast noted in the urinary bladder in the left intrarenal collecting system. A there is air in multiple loops of small bowel disproportionately dilated re lative to colon consistent with distal obstruction. CONCLUSION: Findings consistent with distal small bowel obstruction. Heraclio Berrios MD on August 17, 2017 at 10:34 Board Certified Radiologist. This report was verified electronically.
[2017-08-17] MEDS: DIGOXIN 0.25 MG TAB PO SCH (10:55)
[2017-08-17] MEDS: DOCUSATE SODIUM 50 MG/SENNA 8.6 MG TAB PO SCH ×2 (10:55→19:22)
[2017-08-17] MEDS: DILTIAZEM-CD 120 MG CAP ER PO SCH (10:55)
[2017-08-17] MEDS: PANTOPRAZOLE SOD 40 MG DELAYED RELEASE TAB PO SCH (10:55)
[2017-08-17] MEDS: DOCUSATE SODIUM 100 MG CAP PO SCH ×2 (10:55→19:22)
[2017-08-17] MEDS: POLYETHYLENE GLYCOL 17 GM PKG PO SCH (10:56)
[2017-08-17] MEDS: SODIUM CHLORIDE 0.9% FLUSH 10 ML FLUSH IV FLUSH SCH ×2 (10:57→19:23)
--- NOTE | 2017-08-17 11:37 | HHI.PR ---
Subjective Remarks Events overnight noted. Patient says he had chest pain and sob overnight. She did receive morphine and pain improved. Patient is sattign well on room air at this time. DDimer positive CTA neg, trops neg. likely chest pain related to epigastric pain/ gas , will increase pantoprazole will add simethicone . She has no chest calero at this time, however she has epigastric pain. No fever or chills. Did not have a BM yet. Passing gas. Objective Vitals Vital Signs Date Time Temp Pulse Resp B/P (MAP) Pulse Ox O2 Delivery O2 Flow Rate FiO2 08/17/17 08:00 96.9 85 18 138/81 (100) 94 08/17/17 04:00 96.5 77 23 123/76 (92) 99 08/17/17 00:00 96.1 85 23 139/94 (109) 99 08/16/17 22:43 20 08/16/17 22:08 18 08/16/17 22:00 97.3 84 20 144/63 (90) 96 08/16/17 20:00 96.3 78 20 123/76 (92) 98 08/16/17 16:00 96.8 79 17 143/85 (104) 98 08/16/17 12:00 96.0 81 17 139/82 (101) 99 I/O 08/16/17 08/16/17 08/16/17 08/17/17 08/17/17 08/17/17 07:00 15:00 23:00 07:00 15:00 23:00 Intake Total 2665 ml 720 ml 240 ml 120 ml Output Total 450 ml Balance 2665 ml 270 ml 240 ml 120 ml Intake Oral 480 ml 720 ml 240 ml 120 ml IV Total 2185 ml Output Urine Total 450 ml # Voids 2 2 2 # Bowel Movements 2 0 Result Diagram: 08/17/17 0020 08/17/17 [address] Angiography 08/17/17 0000 Signed Impressions: Service Date/Time: Thursday, August 17, 2017 02:57 - CONCLUSION: 1. The study is negative for pulmonary embolism. 2. Abnormal appearance to both lungs with 2 smooth margin no masses in the anterior upper right lung and a prominent area of opacity in the posterior left lower lung without air bronchograms. Cannot exclude malignancy. 3. Low left axillary adenopathy. Juan Carlos Carroll MD Abdomen X-Ray 08/17/17 0000 Signed Impressions: Service Date/Time: Thursday, August 17, 2017 10:25 - CONCLUSION: Findings consistent with distal small bowel obstruction. Heraclio Berrios MD Small Bowel X-Ray 08/11/17 0000 Signed Impressions: Service Date/Time: Friday, August 11, 2017 13:40 - CONCLUSION: Persistent partial obstruction at the level of the mid small bowel. Rectocele. Antonio Hayes MD Abdomen/Pelvis CT [id number] Signed Impressions: Service Date/Time: Thursday, August 10, 2017 20:57 - CONCLUSION: 1. Small bowel obstruction at the level of the distal jejunum or proximal ileum and appears to occur in the midabdomen. No mass or significant inflammatory changes are demonstrated, presumably obstruction related to adhesion. There is evidence of bowel resection and anastomosis in the right upper quadrant, and appears to be downstream of the obstruction. 2. Ventral hernia repair since the prior study. No recurrent defect. 3. Large staghorn calculus of the right kidney, not new but is associated with mild hydronephrosis currently. Antonio Hayes MD Objective Remarks GENERAL: Pleasant elderly female in no acute distress. HEENT: PERRLA, EOMI. No scleral icterus or conjunctival pallor. No lid lag or facial droop. CARDIOVASCULAR: Regular rate and rhythm. No obvious murmurs to auscultation. No chest tenderness to palpation. RESPIRATORY: No obvious rhonchi or wheezing. Clear to auscultation. Breath sounds equal bilaterally. GASTROINTESTINAL: Abdomen soft, mild generalized tenderness to palpation, mildly distended. BS normal. MUSCULOSKELETAL: Extremities without clubbing, cyanosis, or edema. No obvious deformities. NEUROLOGICAL: Awake, alert and oriented x4. No focal neurologic deficits. Moving both upper and lower extremities spontaneously. A/P Problem List: (1) SBO (small bowel obstruction) ICD Code: K56.69 - Other intestinal obstruction (2) MATTHEW (acute kidney injury) ICD Code: N17.9 - Acute kidney failure, unspecified (3) UTI (urinary tract infection) ICD Code: N39.0 - Urinary tract infection, site not specified (4) A-fib ICD Code: I48.91 - Unspecified atrial fibrillation Assessment and Plan SBO: h/o Colon CA s/p Partial Colectomy/Liver Resection by Dr. Saldana 07/2016, now w/ abdominal pain, nausea/vomiting. CT Abd/Pelvis w/ small bowel obstruction at level of distal jejunum or proximal ileum, images reviewed by me. gen surgery consulted and ff. Conservative management. Had 3 large BM, however still with nausea and vomiting. NGT was removed 08/12 per surgeon and started po intake, doesn't tolerate well. VF, analgesics/antiemetics as needed. 08/15 with abdominal distention , diffuse pain, no BM, nause. Discussed with surgical team, will do KUB, added lax/stool softeners. KUB reviewed still with persistent partial SBO Diet per surgeon With chest pain/sob overnight 08/17. Trop neg, EKG at baseline, DDimer was noted positive, CTA is negative for PE. Likely patient with epigatric pain/GERD related/gas . Will increase PPI, will add simethicone MATTHEW: Creatinine 1.62 on admission previously 0.76 on 08/28/16. IVF for hydration. Monitor kidney function. Improving but not at baseline. Encourage PO intake, cont IVF Hypokalemia: Monitor and replace. Encourage PO intake UTI: U/a positive for UTI. Start IV Cipro. IVF for hydration. A-fib: Paroxysmal. Controlled. Resume home Digoxin IV, hold Diltiazem for now as NPO. DVT Prophylaxis: SCD/Teds Case management consulted for d/c planning as needed. discussed with the patient, nurse, surgical team. DC plan: plan for KUB reviewed still with persistent PBO, diet per surgeon. DC when cleared by surgeon Patient is considering SNF as she doesn't fee comfortable to go home. [id number] signed. tSella Black MD Aug 17, 2017 11:36
[2017-08-17] MEDS ORDERED: SIMETHICONE 125 MG CHEWABLE TAB PO ONE (11:45)
[2017-08-17 12:00] VITALS: BP 147/80; PULSE 75; RESP 20; TEMP 96.9; O2SAT 98
--- NOTE | 2017-08-17 14:05 | HHI.PR ---
Subjective Subjective Notes Feels better today No BM Objective Vitals/I&O Vital Signs Date Time Temp Pulse Resp B/P (MAP) Pulse Ox O2 Delivery O2 Flow Rate FiO2 08/17/17 12:00 96.9 75 20 147/80 (102) 98 08/15/17 07:37 Nasal Cannula 1.00 Labs Laboratory Tests Test 08/17/17 00:20 White Blood Count 5.7 Red Blood Count 4.16 Hemoglobin 13.4 Hematocrit 40.9 Mean Corpuscular Volume 98.4 Mean Corpuscular Hemoglobin 32.1 Mean Corpuscular Hemoglobin Concent 32.6 Red Cell Distribution Width 14.8 Platelet Count 212 Mean Platelet Volume 8.7 Neutrophils (%) (Auto) 69.5 Lymphocytes (%) (Auto) 21.5 Monocytes (%) (Auto) 8.3 Eosinophils (%) (Auto) 0.6 Basophils (%) (Auto) 0.1 Neutrophils # (Auto) 3.9 Lymphocytes # (Auto) 1.2 Monocytes # (Auto) 0.5 Eosinophils # (Auto) 0.0 Basophils # (Auto) 0.0 CBC Comment DIFF FINAL Differential Comment D-Dimer Quantitative (PE/DVT) 1.81 Blood Urea Nitrogen 19 Creatinine 0.97 Random Glucose 83 Calcium Level 8.2 Magnesium Level 2.0 Sodium Level 139 Potassium Level 4.2 Chloride Level 105 Carbon Dioxide Level 29.2 Anion Gap 5 Estimat Glomerular Filtration Rate 68 Total Creatine Kinase 51 Troponin I 0.02 Date/Time Source Procedure Growth Status 08/10/17 21:14 Urine Clean Catch Urine Culture - Final 50-100,000 CFU/ML MIXED NASIM... Complete Cardiovascular: Regular Lungs: Clear Abdomen: Other (non tender; distended ) Extremities: No edema A/P Assessment and Plan 77 year old female with PSBO -Continue cathartics---add suppository -Clear liquids for now -KUB similar to before -OOB and mobilize -Will continue to follow I CERTIFY AND ATTEST THAT I PERSONALLY EXAMINED THE PATIENT IN THEIR ROOM . MS LOWE DOCUMENTED OUR VISIT AND ENTERED ORDERS IN THE EMR UNDER MY DIRECT SUPERVISION. I REVIEWED THE CARE PLAN WITH THE PATIENT. KENJI YOUNG MD [facility] Marnie Lowe Aug 17, 2017 14:05 Kenji Young MD Aug 24, 2017 14:23
[2017-08-17] MEDS ORDERED: BISACODYL 10 MG SUPP RECTAL ONE (14:15)
[2017-08-17 16:00] VITALS: BP 146/69; PULSE 73; RESP 20; TEMP 98; O2SAT 98
[2017-08-17] MEDS: MAGNESIUM HYDROXIDE SUSP 30 ML CUP PO PRN (16:12)
[2017-08-17] MEDS: CALCIUM CARBONATE 500 MG CHEWABLE TAB CHEW PRN (16:12)
[2017-08-17] MEDS: SODIUM CHLOR 0.9% 1000 ML INJ 1,000 ML IV SCH (16:12)
--- NOTE | 2017-08-17 16:40 | EKG ---
Date Performed: 08/16/2017 Time Performed: 22:19:26 PTAGE: 77 years EKG: ATRIAL FIBRILLATION POSSIBLE ANTERIOR MYOCARDIAL INFARCTION , PROBABLY OLD MODERATE T-WAVE ABNORMALITY, CONSIDER INFERIOR ISCHEMIA ABNORMAL ECG Since PREVIOUS TRACING , no significant change noted PREVIOUS TRACIN08/10/2017 18.21 DOCTOR: Paula Mcneil Interpretating Date/Time 08/17/2017 16:39:14
[2017-08-17] MEDS: MORPHINE SULFATE 4 MG/ML INJ IV PUSH PRN (19:23)
[2017-08-17] MEDS: ONDANSETRON HCL 4 MG/2 ML VIAL IVP PRN (19:30)
[2017-08-17 20:00] VITALS: BP 129/73; PULSE 76; RESP 20; TEMP 96.1; O2SAT 98
[2017-08-17] MEDS ORDERED: PANTOPRAZOLE SOD 40 MG DELAYED RELEASE TAB PO SCH (21:00)
[2017-08-17] MEDS ORDERED: MORPHINE SULFATE 4 MG/ML INJ IV PUSH ONE (21:15)
--- NOTE | 2017-08-17 23:39 | RADRPT ---
EXAM DATE/TIME: 08/17/2017 23:12 [facility] COMPARISON: CHEST SINGLE AP, April 09, 2012, 9:08. INDICATIONS : Evaluate NG Placement. MEDICAL HISTORY : Renal Calculi, Asthma SURGICAL HISTORY : Tubal ligation. Hernia repair ENCOUNTER: Initial ACUITY: 2 weeks PAIN SCORE: 7/10 LOCATION: Bilateral chest FINDINGS: The patient is rotated towards the right. A gastric tube with is seen which courses down to the leve l of the hemidiaphragm and folds back on itself. Patchy infiltrates are present in the perihilar reg ion bilaterally and there is loss of delineation of portion of the medial left hemidiaphragm. CONCLUSION: Gastric tube folds back on itself at the level of the GE junction and the tip is probably in the dist al esophagus. Juan Carlos Carroll MD on August 17, 2017 at 23:37 Board Certified Radiologist. This report was verified electronically.
[2017-08-18] VITALS: BP 145/76; PULSE 92; RESP 20; TEMP 96.3; O2SAT 99
[2017-08-18] MEDS: SODIUM CHLOR 0.9% 1000 ML INJ 1,000 ML IV SCH ×3 (00:25→23:22)
--- NOTE | 2017-08-18 01:02 | RADRPT ---
EXAM DATE/TIME: 08/18/2017 00:31 [facility] COMPARISON: ABDOMEN KUB ONLY, August 17, 2017, 10:25. ABDOMEN SINGLE VIEW, August 10, 2017, 22:14. INDICATIONS : NG tube placement. MEDICAL HISTORY : Arthritis. Renal calculi. Asthma SURGICAL HISTORY : Tubal ligation. Hernia repair. ENCOUNTER: Subsequent ACUITY: 1 week PAIN SCORE: 10/10 LOCATION: upper quadrant abdomen FINDINGS: The examination was performed with mosaic acquisition over 3 images. No gastric tube is identified. There is gaseous distention of multiple loops of small bowel measuring up to 5.3 cm in width. Stabl e large staghorn calculus right kidney. Degenerative changes in the lumbar spine. CONCLUSION: Gaseous distended small bowel loops. No NG tube identified. Juan Carlos Carroll MD on August 18, 2017 at 0:59 Board Certified Radiologist. This report was verified electronically.
[2017-08-18 06:58] LABS: AUTOMATED NEUTROPHIL # 2.8 TH/MM3 (1.8-7.7); BASOPHIL % 0.2 % (0.0-2.0); EOSINOPHIL % 0.6 % (0.0-4.0); HEMO FLAGS DIFF FINAL; LYMPH % 28.4 % (9.0-44.0); LYMPHOCYTE # 1.3 TH/MM3 (1.0-4.8); MEAN CELL VOLUME 99.9 FL (80.0-100.0); MEAN CORPUSCULAR HEMOGLOBIN 31.6 PG (27.0-34.0); MEAN CORPUSCULAR HGB CONC 31.6 % (32.0-36.0); MONO % 11.1 % (0.0-8.0); NEUT % 59.7 % (16.0-70.0); PLATELET COUNT 207 TH/MM3 (150-450); RED BLOOD COUNT 4.11 MIL/MM3 (4.00-5.30); RED CELL DISTRIBUTION WIDTH 15.3 % (11.6-17.2); WHITE BLOOD COUNT 4.7 TH/MM3 (4.0-11.0)
[2017-08-18 07:25] LABS: BICARBONATE 31.9 MEQ/L (21.0-32.0); POTASSIUM 4.2 MEQ/L (3.5-5.1)
[2017-08-18 08:00] VITALS: BP 133/72; PULSE 74; RESP 18; TEMP 97.6; O2SAT 100
[2017-08-18] MEDS: MORPHINE SULFATE 4 MG/ML INJ IV PUSH PRN ×4 (08:21→23:22)
[2017-08-18] MEDS: SODIUM CHLORIDE 0.9% FLUSH 10 ML FLUSH IV FLUSH SCH ×2 (08:22→20:15)
[2017-08-18] MEDS: DOCUSATE SODIUM 50 MG/SENNA 8.6 MG TAB PO SCH ×2 (08:23→20:15)
[2017-08-18] MEDS: POLYETHYLENE GLYCOL 17 GM PKG PO SCH (08:23)
[2017-08-18] MEDS: DILTIAZEM-CD 120 MG CAP ER PO SCH (08:23)
[2017-08-18] MEDS: SIMETHICONE 125 MG CHEWABLE TAB PO SCH (08:23)
[2017-08-18] MEDS: DIGOXIN 0.25 MG TAB PO SCH (08:24)
[2017-08-18] MEDS: DOCUSATE SODIUM 100 MG CAP PO SCH ×2 (08:24→20:15)
--- NOTE | 2017-08-18 11:09 | HHI.PR ---
Subjective Remarks Follow-up partial small bowel obstruction 08/18/17-patient seen and examined, she had episode of emesis overnight. Patient is refusing NG tube to be put back in. Positive for flatus but no bowel movement Objective Vitals Vital Signs Date Time Temp Pulse Resp B/P (MAP) Pulse Ox O2 Delivery O2 Flow Rate FiO2 08/18/17 08:26 18 08/18/17 08:00 97.6 74 18 133/72 (92) 100 08/18/17 00:00 96.3 92 20 145/76 (99) 99 08/17/17 21:43 20 08/17/17 20:00 96.1 76 20 129/73 (91) 98 08/17/17 19:28 20 08/17/17 16:00 98.0 73 20 146/69 (94) 98 08/17/17 12:00 96.9 75 20 147/80 (102) 98 I/O 08/17/17 08/17/17 08/17/17 08/18/17 08/18/17 08/18/17 07:00 15:00 23:00 07:00 15:00 23:00 Intake Total 240 ml 120 ml 610 ml 1240 ml Output Total 600 ml 1200 ml Balance 240 ml 120 ml 10 ml 40 ml Intake Oral 240 ml 120 ml 480 ml 240 ml IV Total 130 ml 1000 ml Output Urine Total 600 ml Gastric Drainage Total 1200 ml # Voids 2 3 1 # Bowel Movements 0 Result Diagram: 08/18/17 0537 08/18/17 0537 Imaging Last Impressions Abdomen X-Ray 08/18/17 0000 Signed Impressions: Service Date/Time: Friday, August 18, 2017 00:31 - CONCLUSION: Gaseous distended small bowel loops. No NG tube identified. Juan Carlos Carroll MD Chest X-Ray 08/17/17 0000 Signed Impressions: Service Date/Time: Thursday, August 17, 2017 23:12 - CONCLUSION: Gastric tube folds back on itself at the level of the GE junction and the tip is probably in the distal esophagus. Juan Carlos Carroll MD CT Angiography 08/17/17 0000 Signed Impressions: Service Date/Time: Thursday, August 17, 2017 02:57 - CONCLUSION: 1. The study is negative for pulmonary embolism. 2. Abnormal appearance to both lungs with 2 smooth margin no masses in the anterior upper right lung and a prominent area of opacity in the posterior left lower lung without air bronchograms. Cannot exclude malignancy. 3. Low left axillary adenopathy. Juan Carlos Carroll MD Small Bowel X-Ray 08/11/17 0000 Signed Impressions: Service Date/Time: Friday, August 11, 2017 13:40 - CONCLUSION: Persistent partial obstruction at the level of the mid small bowel. Rectocele. Antonio Hayes MD Abdomen/Pelvis CT 08/10/17 1928 Signed Impressions: Service Date/Time: Thursday, August 10, 2017 20:57 - CONCLUSION: 1. Small bowel obstruction at the level of the distal jejunum or proximal ileum and appears to occur in the midabdomen. No mass or significant inflammatory changes are demonstrated, presumably obstruction related to adhesion. There is evidence of bowel resection and anastomosis in the right upper quadrant, and appears to be downstream of the obstruction. 2. Ventral hernia repair since the prior study. No recurrent defect. 3. Large staghorn calculus of the right kidney, not new but is associated with mild hydronephrosis currently. Antonio Hayes MD Objective Remarks GENERAL: NAD SKIN: Warm and dry. HEAD: Normocephalic. EYES: No scleral icterus. No injection or drainage. NECK: Supple, trachea midline. No JVD or lymphadenopathy. CARDIOVASCULAR: Regular rate and rhythm without murmurs, gallops, or rubs. RESPIRATORY: Breath sounds equal bilaterally. No accessory muscle use. GASTROINTESTINAL: Abdomen soft, non-tender, nondistended. Hypoactive bowel son MUSCULOSKELETAL: No cyanosis, or edema. BACK: Nontender without obvious deformity. No CVA tenderness. A/P Problem List: (1) SBO (small bowel obstruction) ICD Code: K56.69 - Other intestinal obstruction (2) MATTHEW (acute kidney injury) ICD Code: N17.9 - Acute kidney failure, unspecified (3) A-fib ICD Code: I48.91 - Unspecified atrial fibrillation Assessment and Plan 77-year-old female with Partial small bowel obstruction KUB 08/18/17 noted and reviewed by me with finding of gaseous distended small bowel loops Management per general surgery Patient is refusing NG tube replacement Currently on clear liquids Continue Cathartics, stool softeners Acute renal failure Resolved Hep-Lock IV fluid History of atrial fibrillation Currently rate control on Cardizem and digoxin DVT prophylaxis: Bilateral SCDs Byron Bowen MD Aug 18, 2017 11:08
[2017-08-18 12:00] VITALS: BP 125/75; PULSE 72; RESP 18; TEMP 96.7; O2SAT 97
[2017-08-18 16:00] VITALS: BP 118/74; PULSE 76; RESP 18; TEMP 97.4; O2SAT 98
[2017-08-18 20:00] VITALS: BP 130/82; PULSE 71; RESP 20; TEMP 96.6; O2SAT 93
[2017-08-18] MEDS: ONDANSETRON HCL 4 MG/2 ML VIAL IVP PRN (20:15)
[2017-08-18] MEDS: CALCIUM CARBONATE 500 MG CHEWABLE TAB CHEW PRN (20:15)
--- NOTE | 2017-08-18 21:49 | HHI.PR ---
cc: Galo Mei MD Subjective Subjective Notes DAILY PROGRESS NOTE FOR SURGICAL ATTENDING, DR. GALO MEI pt thinks she passed some flatus wants something to eat Objective Vitals/I&O Vital Signs Date Time Temp Pulse Resp B/P (MAP) Pulse Ox O2 Delivery O2 Flow Rate FiO2 08/18/17 20:00 96.6 71 20 130/82 (98) 93 08/15/17 07:37 Nasal Cannula 1.00 Labs Laboratory Tests Test 08/18/17 05:37 White Blood Count 4.7 Red Blood Count 4.11 Hemoglobin 13.0 Hematocrit 41.0 Mean Corpuscular Volume 99.9 Mean Corpuscular Hemoglobin 31.6 Mean Corpuscular Hemoglobin Concent 31.6 Red Cell Distribution Width 15.3 Platelet Count 207 Mean Platelet Volume 8.5 Neutrophils (%) (Auto) 59.7 Lymphocytes (%) (Auto) 28.4 Monocytes (%) (Auto) 11.1 Eosinophils (%) (Auto) 0.6 Basophils (%) (Auto) 0.2 Neutrophils # (Auto) 2.8 Lymphocytes # (Auto) 1.3 Monocytes # (Auto) 0.5 Eosinophils # (Auto) 0.0 Basophils # (Auto) 0.0 CBC Comment DIFF FINAL Differential Comment Blood Urea Nitrogen 19 Creatinine 0.97 Random Glucose 72 Calcium Level 8.1 Sodium Level 142 Potassium Level 4.2 Chloride Level 104 Carbon Dioxide Level 31.9 Anion Gap 6 Estimat Glomerular Filtration Rate 68 Date/Time Source Procedure Growth Status 08/10/17 21:14 Urine Clean Catch Urine Culture - Final 50-100,000 CFU/ML MIXED NASIM... Complete Radiology Last Impressions Abdomen X-Ray 08/18/17 0000 Signed Impressions: Service Date/Time: Friday, August 18, 2017 00:31 - CONCLUSION: Gaseous distended small bowel loops. No NG tube identified. Juan Carlos Carroll MD Chest X-Ray 08/17/17 0000 Signed Impressions: Service Date/Time: Thursday, August 17, 2017 23:12 - CONCLUSION: Gastric tube folds back on itself at the level of the GE junction and the tip is probably in the distal esophagus. Juan Carlos Carroll MD CT Angiography 08/17/17 0000 Signed Impressions: Service Date/Time: Thursday, August 17, 2017 02:57 - CONCLUSION: 1. The study is negative for pulmonary embolism. 2. Abnormal appearance to both lungs with 2 smooth margin no masses in the anterior upper right lung and a prominent area of opacity in the posterior left lower lung without air bronchograms. Cannot exclude malignancy. 3. Low left axillary adenopathy. Juan Carlos Carroll MD Small Bowel X-Ray 08/11/17 0000 Signed Impressions: Service Date/Time: Friday, August 11, 2017 13:40 - CONCLUSION: Persistent partial obstruction at the level of the mid small bowel. Rectocele. Antonio Hayes MD Abdomen/Pelvis CT [id number] Signed Impressions: Service Date/Time: Thursday, August 10, 2017 20:57 - CONCLUSION: 1. Small bowel obstruction at the level of the distal jejunum or proximal ileum and appears to occur in the midabdomen. No mass or significant inflammatory changes are demonstrated, presumably obstruction related to adhesion. There is evidence of bowel resection and anastomosis in the right upper quadrant, and appears to be downstream of the obstruction. 2. Ventral hernia repair since the prior study. No recurrent defect. 3. Large staghorn calculus of the right kidney, not new but is associated with mild hydronephrosis currently. Antonio Hayes MD Cardiovascular: Regular Abdomen: Non-distended, Other (soft) Narrative Exam pt sitting in bed wants to eat more A/P Problem List: (1) SBO (small bowel obstruction) ICD Codes: K56.69 - Other intestinal obstruction Status: Chronic (2) UTI (urinary tract infection) ICD Codes: N39.0 - Urinary tract infection, site not specified Status: Acute (3) A-fib ICD Codes: I48.91 - Unspecified atrial fibrillation (4) MATTHEW (acute kidney injury) ICD Codes: N17.9 - Acute kidney failure, unspecified Status: Chronic Assessment and Plan 77 year old female with PSBO -Continue cathartics---add suppository -Clear liquids for now -KUB similar to before -OOB and mobilize slowing advance diet if cont to improve Attending Statement NOTE FOR SURGICAL ATTENDING, DR. GALO MEI I attest that I had a [id number] encounter with the patient on the same day, and personally performed and documented my assessment and findings in the medical record. The following services were provided during this hospital visit: Chart data review, vital sign assessments/reviewing monitor data Review of consultations notes if present. Medication orders/review and/or management Ordering and/or reviewing lab tests Ordering and/or interpreting/reviewing x-rays and/or diagnostic studies Care of the patient and discussion of the patient with the care team Documentation time To help prompt me to consider important information that might be impacting today's encounter and assessment, information from prior notes written by myself or my colleagues may have been "brought forward/copy and pasted" into today's note. Problem Qualifiers (1) A-fib: Qualified Codes: I48.2 - Chronic atrial fibrillation Galo Mei MD Aug 18, 2017 21:49
[2017-08-19] VITALS: BP 140/81; PULSE 83; RESP 20; TEMP 96.5; O2SAT 97
[2017-08-19] MEDS: CALCIUM CARBONATE 500 MG CHEWABLE TAB CHEW PRN (02:27)
[2017-08-19] MEDS: MORPHINE SULFATE 4 MG/ML INJ IV PUSH PRN ×5 (02:28→23:31)
[2017-08-19 08:00] VITALS: BP 106/69; PULSE 80; RESP 18; TEMP 96.4; O2SAT 99
[2017-08-19] MEDS: SODIUM CHLORIDE 0.9% FLUSH 10 ML FLUSH IV FLUSH SCH ×2 (08:16→19:59)
[2017-08-19] MEDS: SIMETHICONE 125 MG CHEWABLE TAB PO SCH (08:16)
[2017-08-19] MEDS: POLYETHYLENE GLYCOL 17 GM PKG PO SCH (08:16)
[2017-08-19] MEDS: DOCUSATE SODIUM 100 MG CAP PO SCH ×2 (08:16→19:55)
[2017-08-19] MEDS: DIGOXIN 0.25 MG TAB PO SCH (08:16)
[2017-08-19] MEDS: DOCUSATE SODIUM 50 MG/SENNA 8.6 MG TAB PO SCH ×2 (08:16→19:55)
[2017-08-19] MEDS: DILTIAZEM-CD 120 MG CAP ER PO SCH (08:16)
--- NOTE | 2017-08-19 10:17 | HHI.PR ---
Subjective Remarks Follow-up partial small bowel obstruction 08/18/17-patient seen and examined, she had episode of emesis overnight. Patient is refusing NG tube to be put back in. Positive for flatus but no bowel movement 08/19/17-patient seen and examined, denies any nausea or vomiting as she was able to tolerate by mouth today. However patient still distended and denies any bowel movement although she still passing flatus. Case discussed with general surgery Objective Vitals Vital Signs Date Time Temp Pulse Resp B/P (MAP) Pulse Ox O2 Delivery O2 Flow Rate FiO2 08/19/17 08:00 96.4 80 18 106/69 (81) 99 08/19/17 00:00 96.5 83 20 140/81 (100) 97 08/18/17 20:00 96.6 71 20 130/82 (98) 93 08/18/17 17:32 18 08/18/17 16:00 97.4 76 18 118/74 (89) 98 08/18/17 12:00 96.7 72 18 125/75 (92) 97 I/O 08/18/17 08/18/17 08/18/17 08/19/17 08/19/17 08/19/17 07:00 15:00 23:00 07:00 15:00 23:00 Intake Total 1240 ml 1500 ml 1854 ml Output Total 1200 ml 800 ml Balance 40 ml 700 ml 1854 ml Intake Oral 240 ml 1500 ml 240 ml IV Total 1000 ml 1614 ml Output Urine Total 800 ml Gastric Drainage Total 1200 ml # Voids 1 2 1 # Bowel Movements 0 Result Diagram: 08/18/17 0537 08/18/17 0537 Objective Remarks GENERAL: NAD SKIN: Warm and dry. HEAD: Normocephalic. EYES: No scleral icterus. No injection or drainage. NECK: Supple, trachea midline. No JVD or lymphadenopathy. CARDIOVASCULAR: Regular rate and rhythm without murmurs, gallops, or rubs. RESPIRATORY: Breath sounds equal bilaterally. No accessory muscle use. GASTROINTESTINAL: Abdomen non-tender, distended. Hypoactive bowel sounds MUSCULOSKELETAL: No cyanosis, or edema. BACK: Nontender without obvious deformity. No CVA tenderness. A/P Problem List: (1) SBO (small bowel obstruction) ICD Code: K56.69 - Other intestinal obstruction Status: Chronic (2) MATTHEW (acute kidney injury) ICD Code: N17.9 - Acute kidney failure, unspecified Status: Chronic (3) A-fib ICD Code: I48.91 - Unspecified atrial fibrillation Assessment and Plan 77-year-old female with Partial small bowel obstruction KUB 08/18/17 noted and reviewed by me with finding of gaseous distended small bowel loops Management per general surgery however if any indication of emesis, patient would require exploratory laparoscopy with CAMILLA. Case discussed with general surgery 08/19/17 Currently on clear liquids Continue Cathartics, stool softeners Acute renal failure Resolved Hep-Lock IV fluid History of atrial fibrillation Currently rate control on Cardizem and digoxin DVT prophylaxis: Bilateral SCDs Problem Qualifiers (1) A-fib: Qualified Codes: I48.2 - Chronic atrial fibrillation Byron Bowen MD Aug 19, 2017 10:17
[2017-08-19 12:00] VITALS: BP 120/67; PULSE 72; RESP 18; TEMP 95.7; O2SAT 94
[2017-08-19] MEDS: SODIUM CHLOR 0.9% 1000 ML INJ 1,000 ML IV SCH ×2 (12:10→23:33)
[2017-08-19 16:00] VITALS: BP 132/91; PULSE 83; RESP 20; TEMP 96.1; O2SAT 94
--- NOTE | 2017-08-19 16:31 | HHI.PR ---
Subjective Subjective Notes Taking some liquids; reports flatus but no bowel movement. Objective Vitals/I&O Vital Signs Date Time Temp Pulse Resp B/P (MAP) Pulse Ox O2 Delivery O2 Flow Rate FiO2 08/19/17 12:00 95.7 72 18 120/67 (84) 94 08/15/17 07:37 Nasal Cannula 1.00 Labs Date/Time Source Procedure Growth Status 08/10/17 21:14 Urine Clean Catch Urine Culture - Final 50-100,000 CFU/ML MIXED NASIM... Complete Radiology Last Impressions Abdomen X-Ray 08/18/17 0000 Signed Impressions: Service Date/Time: Friday, August 18, 2017 00:31 - CONCLUSION: Gaseous distended small bowel loops. No NG tube identified. Juan Carlos Carroll MD Chest X-Ray 08/17/17 0000 Signed Impressions: Service Date/Time: Thursday, August 17, 2017 23:12 - CONCLUSION: Gastric tube folds back on itself at the level of the GE junction and the tip is probably in the distal esophagus. Juan Carlos Carroll MD CT Angiography 08/17/17 0000 Signed Impressions: Service Date/Time: Thursday, August 17, 2017 02:57 - CONCLUSION: 1. The study is negative for pulmonary embolism. 2. Abnormal appearance to both lungs with 2 smooth margin no masses in the anterior upper right lung and a prominent area of opacity in the posterior left lower lung without air bronchograms. Cannot exclude malignancy. 3. Low left axillary adenopathy. Juan Carlos Carroll MD Small Bowel X-Ray 08/11/17 0000 Signed Impressions: Service Date/Time: Friday, August 11, 2017 13:40 - CONCLUSION: Persistent partial obstruction at the level of the mid small bowel. Rectocele. Antonio Hayes MD Abdomen/Pelvis CT 08/10/171927 Signed Impressions: Service Date/Time: Thursday, August 10, 2017 20:57 - CONCLUSION: 1. Small bowel obstruction at the level of the distal jejunum or proximal ileum and appears to occur in the midabdomen. No mass or significant inflammatory changes are demonstrated, presumably obstruction related to adhesion. There is evidence of bowel resection and anastomosis in the right upper quadrant, and appears to be downstream of the obstruction. 2. Ventral hernia repair since the prior study. No recurrent defect. 3. Large staghorn calculus of the right kidney, not new but is associated with mild hydronephrosis currently. Antonio Hayes MD Abdomen: Other (Distended, but nontender) A/P Problem List: (1) SBO (small bowel obstruction) ICD Codes: K56.69 - Other intestinal obstruction Status: Chronic (2) UTI (urinary tract infection) ICD Codes: N39.0 - Urinary tract infection, site not specified Status: Acute (3) A-fib ICD Codes: I48.91 - Unspecified atrial fibrillation (4) MATTHEW (acute kidney injury) ICD Codes: N17.9 - Acute kidney failure, unspecified Status: Chronic Assessment and Plan A/P Assessment and Plan 77 year old female with PSBO; nurses state that she has not been ambulating -Continue clear liquids for now -OOB and mobilize -Will continue to follow -May need exploration if she does not progress Problem Qualifiers (1) A-fib: Qualified Codes: I48.2 - Chronic atrial fibrillation Blane Leon MD Aug 19, 2017 16:31
[2017-08-19] MEDS: MAGNESIUM HYDROXIDE SUSP 30 ML CUP PO PRN (19:55)
[2017-08-19 20:00] VITALS: BP 133/63; PULSE 82; RESP 18; TEMP 97; O2SAT 98
[2017-08-19] MEDS: ONDANSETRON HCL 4 MG/2 ML VIAL IVP PRN (23:31)
[2017-08-20] VITALS: BP 120/59; PULSE 86; RESP 18; TEMP 95.9; O2SAT 98
[2017-08-20] MEDS: MORPHINE SULFATE 4 MG/ML INJ IV PUSH PRN (05:14)
[2017-08-20 07:58] LABS: BICARBONATE 29.3 MEQ/L (21.0-32.0); POTASSIUM 4.3 MEQ/L (3.5-5.1)
[2017-08-20 08:00] VITALS: BP 116/74; PULSE 76; RESP 16; TEMP 96.4; O2SAT 98
[2017-08-20] MEDS: POLYETHYLENE GLYCOL 17 GM PKG PO SCH (09:00)
--- NOTE | 2017-08-20 09:35 | RADRPT ---
EXAM DATE/TIME: 08/20/2017 08:47 [facility] COMPARISON: CT PULMONARY ANGIOGRAM, August 17, 2017, 2:57. ABDOMEN KUB ONLY, August 17, 2017, 10:25. ABDO MEN SINGLE VIEW, August 18, 2017, 0:31. INDICATIONS : Abdominal Pain MEDICAL HISTORY : Arthritis. Renal calculi. Asthma SURGICAL HISTORY : Tubal ligation. Hernia repair. ENCOUNTER: Subsequent ACUITY: 1 week PAIN SCORE: 9/10 LOCATION: Bilateral upper quadrant Abdomen FINDINGS: The study is limited secondary to body habitus. There is air seen within large bowel extending to the rectum. Contrast is noted in the colon. Air is also seen in small bowel loops to a lesser extent. Th e degree of bowel distention is decreased from the previous study. There is a history of right renal staghorn calculus. CONCLUSION: 1. Decreased bowel distention, limited study. Domo Gaxiola MD on August 20, 2017 at 9:31 Board Certified Radiologist. This report was verified electronically.
[2017-08-20] MEDS: DIGOXIN 0.25 MG TAB PO SCH (10:32)
[2017-08-20] MEDS: DILTIAZEM-CD 120 MG CAP ER PO SCH (10:32)
[2017-08-20] MEDS: DOCUSATE SODIUM 100 MG CAP PO SCH ×2 (10:32→21:00)
[2017-08-20] MEDS: SIMETHICONE 125 MG CHEWABLE TAB PO SCH (10:32)
[2017-08-20] MEDS: DOCUSATE SODIUM 50 MG/SENNA 8.6 MG TAB PO SCH ×2 (10:32→21:00)
[2017-08-20] MEDS: SODIUM CHLORIDE 0.9% FLUSH 10 ML FLUSH IV FLUSH SCH (10:33)
[2017-08-20] MEDS ORDERED: LACTATED RINGER'S 1000 ML IV PRN (10:45)
[2017-08-20] MEDS ORDERED: METOPROLOL TARTRATE 25 MG TAB PO PRN (10:45)
[2017-08-20] MEDS ORDERED: INSULIN HUMAN REGULAR 1,000 UNITS/10 ML VIAL SQ PRN (10:45)
[2017-08-20] MEDS ORDERED: SODIUM CHLORID 0.9% 500 ML IV PRN (10:45)
[2017-08-20] MEDS ORDERED: CHLORHEXIDINE GLUCONATE 2 % 1 PACK (2 CLOTHS) TOPICAL PRN (10:45)
[2017-08-20] MEDS ORDERED: POVIDONE IODINE 5% (ANTISEPSIS KIT) 4 APPLICATIONS EACH NARE PRN (10:45)
--- NOTE | 2017-08-20 11:54 | HHI.PR ---
Subjective Remarks Follow-up partial small bowel obstruction 08/18/17-patient seen and examined, she had episode of emesis overnight. Patient is refusing NG tube to be put back in. Positive for flatus but no bowel movement 08/19/17-patient seen and examined, denies any nausea or vomiting as she was able to tolerate by mouth today. However patient still distended and denies any bowel movement although she still passing flatus. Case discussed with general surgery 08/20/17-patient seen and examined; distended and complaint of abdominal pain. Had episode of emesis yesterday. Currently nothing by mouth and plan for a trip to the OR Objective Vitals Vital Signs Date Time Temp Pulse Resp B/P (MAP) Pulse Ox O2 Delivery O2 Flow Rate FiO2 08/20/17 08:00 96.4 76 16 116/74 (88) 98 08/20/17 00:00 95.9 86 18 120/59 (79) 98 08/19/17 20:00 97.0 82 18 133/63 (86) 98 08/19/17 16:30 18 08/19/17 16:00 96.1 83 20 132/91 (105) 94 08/19/17 12:00 95.7 72 18 120/67 (84) 94 I/O 08/19/17 08/19/17 08/19/17 08/20/17 08/20/17 08/20/17 07:00 15:00 23:00 07:00 15:00 23:00 Intake Total 1854 ml 1200 ml 707 ml Output Total 1600 ml Balance 1854 ml -400 ml 707 ml Intake Oral 240 ml 1200 ml 240 ml IV Total 1614 ml 467 ml Output Urine Total 1600 ml # Voids 1 3 # Bowel Movements 0 Result Diagram: 08/18/17 0537 08/20/17 0526 Imaging Last Impressions Abdomen X-Ray 08/20/17 0600 Signed Impressions: Service Date/Time: Sunday, August 20, 2017 08:47 - CONCLUSION: 1. Decreased bowel distention, limited study. Domo Gaxiola MD Chest X-Ray 08/17/17 0000 Signed Impressions: Service Date/Time: Thursday, August 17, 2017 23:12 - CONCLUSION: Gastric tube folds back on itself at the level of the GE junction and the tip is probably in the distal esophagus. Juan Carlos Carroll MD CT Angiography 08/17/17 0000 Signed Impressions: Service Date/Time: Thursday, August 17, 2017 02:57 - CONCLUSION: 1. The study is negative for pulmonary embolism. 2. Abnormal appearance to both lungs with 2 smooth margin no masses in the anterior upper right lung and a prominent area of opacity in the posterior left lower lung without air bronchograms. Cannot exclude malignancy. 3. Low left axillary adenopathy. Juan Carlos Carroll MD Small Bowel X-Ray 08/11/17 0000 Signed Impressions: Service Date/Time: Friday, August 11, 2017 13:40 - CONCLUSION: Persistent partial obstruction at the level of the mid small bowel. Rectocele. Antonio Hayes MD Abdomen/Pelvis CT 08/10/[id number] Signed Impressions: Service Date/Time: Thursday, August 10, 2017 20:57 - CONCLUSION: 1. Small bowel obstruction at the level of the distal jejunum or proximal ileum and appears to occur in the midabdomen. No mass or significant inflammatory changes are demonstrated, presumably obstruction related to adhesion. There is evidence of bowel resection and anastomosis in the right upper quadrant, and appears to be downstream of the obstruction. 2. Ventral hernia repair since the prior study. No recurrent defect. 3. Large staghorn calculus of the right kidney, not new but is associated with mild hydronephrosis currently. Antonio Hayes MD Objective Remarks GENERAL: NAD SKIN: Warm and dry. HEAD: Normocephalic. EYES: No scleral icterus. No injection or drainage. NECK: Supple, trachea midline. No JVD or lymphadenopathy. CARDIOVASCULAR: Regular rate and rhythm without murmurs, gallops, or rubs. RESPIRATORY: Breath sounds equal bilaterally. No accessory muscle use. GASTROINTESTINAL: Abdomen non-tender, distended. Hypoactive bowel sounds MUSCULOSKELETAL: No cyanosis, or edema. BACK: Nontender without obvious deformity. No CVA tenderness. A/P Problem List: (1) SBO (small bowel obstruction) ICD Code: K56.69 - Other intestinal obstruction Status: Chronic (2) MATTHEW (acute kidney injury) ICD Code: N17.9 - Acute kidney failure, unspecified Status: Chronic (3) A-fib ICD Code: I48.91 - Unspecified atrial fibrillation Assessment and Plan 77-year-old female with Partial small bowel obstruction Management per general surgery and plan for exploratory laparoscopy with CAMILLA today 08/20/17. Currently nothing by mouth Continue Cathartics, stool softeners Acute renal failure Resolved Hep-Lock IV fluid History of atrial fibrillation Currently rate control on Cardizem and digoxin DVT prophylaxis: Bilateral SCDs Problem Qualifiers (1) A-fib: Qualified Codes: I48.2 - Chronic atrial fibrillation Byron Bowen MD Aug 20, 2017 11:54
[2017-08-20 12:00] VITALS: BP 139/81; PULSE 81; RESP 20; TEMP 95.8; O2SAT 99
[2017-08-20] MEDS ORDERED: DEXAMETHASONE SOD PHOS 4 MG/ML VIAL IV ONE (12:00)
[2017-08-20] MEDS ORDERED: GLYCOPYRROLATE 1 MG/5 ML SYRINGE IV PUSH ONE (12:00)
[2017-08-20] MEDS ORDERED: NEOSTIGMINE 3 MG/3 ML SYR IV ONE (12:00)
[2017-08-20] MEDS ORDERED: ONDANSETRON HCL 4 MG/2 ML VIAL IV PUSH ONE (12:00)
[2017-08-20] MEDS ORDERED: PROPOFOL 200 MG/20 ML AMP IV ONE (12:00)
[2017-08-20] MEDS ORDERED: LIDOCAINE HCL 1% PF 5 ML AMPULE OTHER ONE (12:00)
[2017-08-20] MEDS ORDERED: ROCURONIUM INJ 50 MG/5 ML SYRINGE IV PUSH ONE (12:00)
[2017-08-20] MEDS ORDERED: SUCCINYLCHOLINE CHLORIDE 100 MG/5 ML SYRINGE IV PUSH ONE (12:00)
[2017-08-20] MEDS ORDERED: NORMOSOL R INJ 2,000 ML IV ONE (12:00)
[2017-08-20] MEDS ORDERED: ESMOLOL HCL 100 MG/10 ML VIAL IV ONE (12:00)
[2017-08-20] MEDS ORDERED: LACTATED RINGER'S 1000 ML INJ 2,000 ML IV ONE (12:00)
[2017-08-20] MEDS: SODIUM CHLOR 0.9% 1000 ML INJ 1,000 ML IV SCH (12:00)
[2017-08-20] MEDS ORDERED: PHENYLEPH/NS 1000 MCG/10 ML SYR IV ONE (12:00)
[2017-08-20] MEDS ORDERED: FAMOTIDINE 20 MG/2 ML VIAL ONE (14:02)
[2017-08-20] MEDS ORDERED: BUPIVACAINE/EPINEPHRINE 0.25% 50 ML VIAL ONE (14:15)
[2017-08-20] MEDS ORDERED: ceFAZolin INJ 1,000 MG VIAL ONE (14:36)
[2017-08-20] MEDS ORDERED: SODIUM CHLORIDE 0.9% INJ 100 ML ONE (14:37)
[2017-08-20] MEDS ORDERED: metroNIDAZOLE 500 MG INJ 100 ML IV ONE (14:37)
[2017-08-20] MEDS ORDERED: SUGAMMADEX SODIUM 200 MG/2 ML VIAL IV PUSH ONE ×2 (17:09)
[2017-08-20] MEDS ORDERED: DO NOT ADM ANY ANTICOAGULANT DRUGS PRN (17:17)
[2017-08-20] MEDS ORDERED: NALOXONE HCL 0.4 MG/ML AMP IV PRN (17:30)
[2017-08-20] MEDS ORDERED: SODIUM CHLORIDE 0.9% FLUSH 5 ML FLUSH IVF PRN (17:30)
[2017-08-20] MEDS ORDERED: Post-op Orders (for Pharmacy) MISC XX ONE (17:30)
[2017-08-20] MEDS: D5-NS + KCL 20 MEQ INJ 1,000 ML IV SCH (17:51)
[2017-08-20] MEDS ORDERED: *morphine SULFATE 8 MG/ML PERIprocedure ONLY ONE ×2 (17:53→18:17)
[2017-08-20] MEDS: MORPHINE SULFATE 30 MG/30 ML PCA IV SCH (17:58)
[2017-08-20 20:00] VITALS: BP 130/71; PULSE 76; RESP 18; TEMP 96.8; O2SAT 99
[2017-08-20] MEDS: SODIUM CHLORIDE 0.9% FLUSH 5 ML FLUSH IVF SCH (21:00)
[2017-08-20] MEDS: PCA - TOTAL MG MORPHINE DELIVERED PER SHIFT SCH (21:33)
[2017-08-21] VITALS (8 sets, daily range): BP systolic 104–131; BP diastolic 61–87; PULSE 73–98; RESP 17–18; TEMP 96.1–97.4; O2SAT 92–99
[2017-08-21] MEDS: D5-NS + KCL 20 MEQ INJ 1,000 ML IV SCH ×3 (02:00→16:50)
[2017-08-21] MEDS: PCA - TOTAL MG MORPHINE DELIVERED PER SHIFT SCH ×3 (06:00→22:00)
[2017-08-21 06:56] LABS: AUTOMATED NEUTROPHIL # 6.9 TH/MM3 (1.8-7.7); BASOPHIL % 0.1 % (0.0-2.0); HEMATOCRIT 39.9 % (35.0-46.0); HEMO FLAGS DIFF FINAL; LYMPH % 10.7 % (9.0-44.0); LYMPHOCYTE # 0.9 TH/MM3 (1.0-4.8); MEAN CELL VOLUME 100.7 FL (80.0-100.0); MEAN CORPUSCULAR HEMOGLOBIN 32.5 PG (27.0-34.0); MEAN CORPUSCULAR HGB CONC 32.2 % (32.0-36.0); MONO % 4.5 % (0.0-8.0); NEUT % 84.7 % (16.0-70.0); PLATELET COUNT 183 TH/MM3 (150-450); RED BLOOD COUNT 3.97 MIL/MM3 (4.00-5.30); RED CELL DISTRIBUTION WIDTH 14.9 % (11.6-17.2); WHITE BLOOD COUNT 8.1 TH/MM3 (4.0-11.0)
[2017-08-21 07:22] LABS: BICARBONATE 30.5 MEQ/L (21.0-32.0); POTASSIUM 4.6 MEQ/L (3.5-5.1)
--- NOTE | 2017-08-21 08:30 | MP ---
cc: KENJI YOUNG M.D. DATE OF SURGERY 08/20/2017 PREOPERATIVE DIAGNOSES 1. Persistent partial small bowel obstruction. 2. History of Stage IV colon cancer. POSTOPERATIVE DIAGNOSES 1. Persistent partial small bowel obstruction. 2. History of Stage IV colon cancer. 3. 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 PROCEDURE PERFORMED 1. Diagnostic laparoscopy. 2. Exploratory laparotomy. 3. Lysis of adhesions. 4. Small bowel and proximal colon resection with end-ileostomy. 5. A #20-Nepali WILLIAM gastrostomy tube. SURGEON Kenji Young MD FLUORESCENT [employer]UTION [employer] [facility] ANESTHESIA General endotracheal. ESTIMATED BLOOD LOSS 75 cc. INS and OUTS 3.5 liters succus entericus retrieved via NG tube. Urine output was about 100 cc. COMPLICATIONS None. INDICATIONS FOR THE PROCEDURE Ms. Mullins is a pleasant 77-year-old female who presented approximately 10 days ago with nausea, vomiting, abdominal pain. The patient had an NG tube placed and had minimal output. She then had a small bowel follow-through which showed contrast in the colon at approximately 6 hours. She did have diffusely dilated small bowel. The patient had multiple bowel movements two days after admission and she was managed nonoperatively. Of note, the patient had no evidence of recurrent colon cancer. 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 The patient initially did well with nonoperative management but then developed a recurrence. She was offered operative exploration and she wanted to wait a little bit longer to see if things opened up on their own. Over the past 48 hours she has continued to have some abdominal distension, nausea and minimal bowel output. She has mainly been passing flatus but had no significant bowel movement in the last 3 days. Follow-up imaging demonstrated persistent dilatation of the small bowel. Based on her clinical history, I advised her I would recommend she go to the operating room for formal exploration due to high risk of recurrent cancer. She was agreeable and signed consents. OPERATIVE FINDINGS The patient had recurrence of the colon cancer at the ileocolic anastomosis. This was causing a high-grade obstruction, although she was not completely obstructed. There was diffuse carcinomatosis all in the peritoneum and in the mesentery of the bowel. There were multiple peritoneal implants as well as multiple implants on the mesenteric and antimesenteric borders of the bowel. We resected the anastomosis as well as a small bowel metastasis which was causing a near-obstruction that was about 15 cm proximal to the ileocolic anastomosis. We performed an end-ileostomy and placed a gastrostomy tube. DETAILS The patient was identified, brought to the operating room, placed supine on the operating table. After adequate general endotracheal anesthesia was achieved, the abdomen is prepped and draped in standard surgical fashion. The left upper quadrant was anesthetized with 0.25% Marcaine. A transverse incision was made. Dissection was carried down to the anterior abdominal fascia which was then incised sharply. Blunt dissection was used to enter the abdominal cavity without any difficulty. A 10-mm blunt port was inserted and the abdomen was insufflated to 15 mmHg using CO2 gas. Next, a 0-degree laparoscope was inserted. Upon initially inserting the scope we noted multiple peritoneal implants consistent with carcinomatosis and recurrent cancer. I therefore aborted the laparoscopic procedure as I felt the patient probably had a high-grade obstruction secondary to the malignancy recurring and this would not been amenable to laparoscopic exploration. The patient's previous upper midline incision was then resected and excised. The upper fascia was then opened. The peritoneum was entered without any difficulty. The patient was noted to have some moderate small bowel adhesions in the pelvis and these were freed up. Once we did this we were able to pull the entire small bowel out of the abdominal cavity and run it in an anterior grade fashion. We followed the small bowel up which was completely dilated right up to the ileocolic anastomosis in the right upper quadrant. We could palpate multiple firm nodules within the anastomosis likely causing a high-grade partial obstruction. Throughout the small bowel in the mesentery there were multiple hard white nodules and the nodules were located in the mesentery and on the antimesenteric borders of the small bowel. There was a firm, large nodule causing high-grade partial small bowel obstruction that was about 10-15 cm proximal to the ileocolic anastomosis. It was likely that these two lesions were causing the patient's clinical obstruction. I therefore elected to resect this area as well as the ileocolic anastomosis and performed end-ileostomy. Just proximal to the to mesenteric implant causing the small bowel obstruction, a JODI 75 stapler was fired. We then went on the transverse colon and fired the stapler across that. The entire area was then resected en bloc using a Harmonic Wave. Specimen sent to pathology for analysis. The colonic staple line was oversewn with 3-0 GI silks. The transverse colon was completely decompressed and appeared healthy. The patient had multiple bowel movements prior to surgery and I felt that she could have an extended Latricia's pouch and do well in light of her grim prognosis. Attention was now directed to formation of the ileostomy. A site was selected in the right middle quadrant. An elliptical skin incision was made. The subcutaneous fat was dissected out. The abdominal wall fascia was then opened in a cruciate type manner and the muscles were spread along the course of their fibers. The small bowel was then grasped and brought out through the ileostomy. The small bowel was then tacked along the lateral abdominal sidewall in order to prevent any twisting; this was done with 3-0 GI silks. Attention was now directed toward the gastrostomy tube. Prior to forming the gastrostomy tube we milked the small bowel back and retrieved 3.5 liters of succus entericus via the NG tube. A site on the anterior stomach was selected. A 20-Nepali WILLIAM gastrostomy tube was then brought into the abdominal wall and the balloon was tested and found to work well with no leaks. A box stitch was placed with 3-0 GI silk. A gastrotomy was then made and the G-tube was inserted. The G-tube of balloon was inflated with 10 cc of saline. The G-tube was then sewn up using the same box stitch as well as two additional stay sutures to the abdominal wall using a 3-0 GI silk. With this the stomach was well approximated to the abdominal wall. At this point the abdominal cavity was copiously rinsed out with normal saline solution. During the procedure we did biopsy one of the mesenteric nodules and Dr. Olvera called back in the room stating that the nodule we sent was consistent with recurrent metastatic colon cancer. Attention was now directed to closure. Closure was accomplished using a #1 looped PDS from above and below. The subcutaneous tissue was copiously irrigated with normal saline solution and injected with additional local anesthetic. 3-0 Vicryl was then used to close subcutaneous fat and the skin was then closed with a skin stapling device. In the left upper quadrant 0 Vicryl was used to close the abdominal wall fascia and the skin was closed with aidan. Sterile dressing was then applied. Attention was directed to maturation of the ostomy. The small bowel was secured to the abdominal wall fascia using a 3-0 GI silk x 2 both and medially and laterally. The ostomy was then matured with 4-0 Vicryls. The ostomy was pink and viable and had good purchase. The abdominal wall was then rinsed off and the ostomy appliance was applied. The patient tolerated the procedure well. She was transferred to Recovery in stable condition. MD ARACELIS Johnson/RADHA /5:21 PM /8:02 AM
[2017-08-21] MEDS: SIMETHICONE 125 MG CHEWABLE TAB PO SCH (09:00)
[2017-08-21] MEDS: POLYETHYLENE GLYCOL 17 GM PKG PO SCH (09:00)
[2017-08-21] MEDS: DOCUSATE SODIUM 50 MG/SENNA 8.6 MG TAB PO SCH ×2 (09:00→20:21)
[2017-08-21] MEDS: SODIUM CHLORIDE 0.9% FLUSH 5 ML FLUSH IVF SCH ×2 (09:00→20:20)
[2017-08-21] MEDS: DOCUSATE SODIUM 100 MG CAP PO SCH ×2 (09:00→20:20)
[2017-08-21] MEDS: DILTIAZEM-CD 120 MG CAP ER PO SCH (09:28)
[2017-08-21] MEDS: DIGOXIN 0.25 MG TAB PO SCH (09:28)
--- NOTE | 2017-08-21 12:04 | HHI.PR ---
Subjective Remarks Follow-up partial small bowel obstruction 08/18/17-patient seen and examined, she had episode of emesis overnight. Patient is refusing NG tube to be put back in. Positive for flatus but no bowel movement 08/19/17-patient seen and examined, denies any nausea or vomiting as she was able to tolerate by mouth today. However patient still distended and denies any bowel movement although she still passing flatus. Case discussed with general surgery 08/20/17-patient seen and examined; distended and complaint of abdominal pain. Had episode of emesis yesterday. Currently nothing by mouth and plan for a trip to the OR 08/21/17-patient seen and examined, she status post exploratory laparoscopy with CAMILLA; NG tube in place, Objective Vitals Vital Signs Date Time Temp Pulse Resp B/P (MAP) Pulse Ox O2 Delivery O2 Flow Rate FiO2 08/21/17 08:47 99 Nasal Cannula 2.00 08/21/17 08:00 96.6 85 17 113/68 (83) 98 08/21/17 06:00 18 08/21/17 04:32 96.9 73 18 126/67 (86) 97 08/21/17 03:35 97 Nasal Cannula 2.00 08/21/17 00:43 96.5 82 18 124/74 (91) 99 08/20/17 21:33 19 08/20/17 21:32 19 08/20/17 20:00 96.8 76 18 130/71 (90) 99 08/20/17 18:15 75 20 151/77 (101) 100 Nasal Cannula 2 08/20/17 18:00 73 20 147/78 (101) 100 Nasal Cannula 2 08/20/17 17:58 16 08/20/17 17:45 69 20 154/86 (108) 100 Nasal Cannula 2 08/20/17 17:26 98.1 72 20 142/81 (101) 100 Nasal Cannula 2 I/O 08/20/17 08/20/17 08/20/17 08/21/17 08/21/17 08/21/17 07:00 15:00 23:00 07:00 15:00 23:00 Intake Total 707 ml 3288 ml 1445 ml Output Total 3825 ml 650 ml Balance 707 ml -537 ml 795 ml Intake Oral 240 ml 600 ml IV Total 467 ml 2688 ml 1445 ml Output Urine Total 500 ml 600 ml Gastric Drainage Total 3250 ml 50 ml Estimated Blood Loss 75 ml # Voids 3 2 # Bowel Movements 0 Result Diagram: 08/21/1743708/21/17437 Objective Remarks GENERAL: NAD with NG tube in place SKIN: Warm and dry. HEAD: Normocephalic. EYES: No scleral icterus. No injection or drainage. NECK: Supple, trachea midline. No JVD or lymphadenopathy. CARDIOVASCULAR: Regular rate and rhythm without murmurs, gallops, or rubs. RESPIRATORY: Breath sounds equal bilaterally. No accessory muscle use. GASTROINTESTINAL: Abdomen non-tender, distended. Incision c/d/i; hypoactive bowel son MUSCULOSKELETAL: No cyanosis, or edema. BACK: Nontender without obvious deformity. No CVA tenderness. Procedures 1. Diagnostic laparoscopy. 2. Exploratory laparotomy. 3. Lysis of adhesions. 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
--- NOTE | 2017-08-21 13:22 | HHI.PR ---
Subjective Subjective Notes Resting in bed Feels much more comfortable in comparison to yesterday Objective Vitals/I&O Vital Signs Date Time Temp Pulse Resp B/P (MAP) Pulse Ox O2 Delivery O2 Flow Rate FiO2 08/21/17 08:47 99 Nasal Cannula 2.00 08/21/17 08:00 96.6 85 17 113/68 (83) Labs Laboratory Tests Test 08/21/17 04:38 White Blood Count 8.1 Red Blood Count 3.97 Hemoglobin 12.9 Hematocrit 39.9 Mean Corpuscular Volume 100.7 Mean Corpuscular Hemoglobin 32.5 Mean Corpuscular Hemoglobin Concent 32.2 Red Cell Distribution Width 14.9 Platelet Count 183 Mean Platelet Volume 8.7 Neutrophils (%) (Auto) 84.7 Lymphocytes (%) (Auto) 10.7 Monocytes (%) (Auto) 4.5 Eosinophils (%) (Auto) 0.0 Basophils (%) (Auto) 0.1 Neutrophils # (Auto) 6.9 Lymphocytes # (Auto) 0.9 Monocytes # (Auto) 0.4 Eosinophils # (Auto) 0.0 Basophils # (Auto) 0.0 CBC Comment DIFF FINAL Differential Comment Blood Urea Nitrogen 17 Creatinine 0.87 Random Glucose 168 Calcium Level 7.5 Sodium Level 142 Potassium Level 4.6 Chloride Level 107 Carbon Dioxide Level 30.5 Anion Gap 5 Estimat Glomerular Filtration Rate 77 Date/Time Source Procedure Growth Status 08/10/17 21:14 Urine Clean Catch Urine Culture - Final 50-100,000 CFU/ML MIXED NASIM... Complete Radiology Last Impressions Abdomen X-Ray 08/18/17 0000 Signed Impressions: Service Date/Time: Friday, August 18, 2017 00:31 - CONCLUSION: Gaseous distended small bowel loops. No NG tube identified. Juan Carlos Carroll MD Chest X-Ray 08/17/17 0000 Signed Impressions: Service Date/Time: Thursday, August 17, 2017 23:12 - CONCLUSION: Gastric tube folds back on itself at the level of the GE junction and the tip is probably in the distal esophagus. Juan Carlos Carroll MD CT Angiography 08/17/17 0000 Signed Impressions: Service Date/Time: Thursday, August 17, 2017 02:57 - CONCLUSION: 1. The study is negative for pulmonary embolism. 2. Abnormal appearance to both lungs with 2 smooth margin no masses in the anterior upper right lung and a prominent area of opacity in the posterior left lower lung without air bronchograms. Cannot exclude malignancy. 3. Low left axillary adenopathy. Juan Carlos Carroll MD Small Bowel X-Ray 08/11/17 0000 Signed Impressions: Service Date/Time: Friday, August 11, 2017 13:40 - CONCLUSION: Persistent partial obstruction at the level of the mid small bowel. Rectocele. Antonio Hayes MD Abdomen/Pelvis CT 08/10/17 192 Signed Impressions: Service Date/Time: Thursday, August 10, 2017 20:57 - CONCLUSION: 1. Small bowel obstruction at the level of the distal jejunum or proximal ileum and appears to occur in the midabdomen. No mass or significant inflammatory changes are demonstrated, presumably obstruction related to adhesion. There is evidence of bowel resection and anastomosis in the right upper quadrant, and appears to be downstream of the obstruction. 2. Ventral hernia repair since the prior study. No recurrent defect. 3. Large staghorn calculus of the right kidney, not new but is associated with mild hydronephrosis currently. Antonio Hayes MD Cardiovascular: Regular Lungs: Clear Abdomen: Other (midline incision with c/d/i dressing; G tube clamped; ileostomy in place with pink stoma--no output; abdomen soft; minimally tender to palpation ) Extremities: Other Narrative Exam minimal generalized edema A/P Problem List: (1) SBO (small bowel obstruction) ICD Codes: K56.69 - Other intestinal obstruction Status: Chronic (2) UTI (urinary tract infection) ICD Codes: N39.0 - Urinary tract infection, site not specified Status: Acute (3) A-fib ICD Codes: I48.91 - Unspecified atrial fibrillation (4) MATTHEW (acute kidney injury) ICD Codes: N17.9 - Acute kidney failure, unspecified Status: Chronic Assessment and Plan 77 year old female with PSBO -POD1 ex lap; CAMILLA; small bowel resection with end-ileostomy; G tube placement -DC NGT -G tube to gravity -Okay for ice and popsicles -TRANSPLANT COORDINATOR for pain control -IVF -Dr. Young to meet with patient and daughter this afternoon to discuss surgery findings -Discussed with Dr. Robbins I CERTIFY AND ATTEST THAT I PERSONALLY EXAMINED THE PATIENT IN THEIR ROOM . MS LOWE DOCUMENTED OUR VISIT AND ENTERED ORDERS IN THE EMR UNDER MY DIRECT SUPERVISION. I REVIEWED THE CARE PLAN WITH THE PATIENT. KENJI YOUNG MD FACS Problem Qualifiers (1) A-fib: Qualified Codes: I48.2 - Chronic atrial fibrillation Marnie LoweP Aug 21, 2017 13:22 Kenji Young MD Aug 24, 2017 14:24
--- NOTE | 2017-08-21 15:41 | PD.WCN.NOT ---
Wound Consult Description: Consult for "new ostomy teaching of rmq end ileostomy" Communicated with: Patient who was easily aroused. Recommendation: Observe staff open pouch, empty pouch, and close pouch when emptying output. Read information booklet left at bedside inside new ileostomy post surgery kit from [facility] Additional Information: Patient seen earlier today ~1400 for ostomy assessment and teaching. Ostomy Type: Ileostomy Surgeon: Mark Saldana MD Date of Surgery: Aug 20, 2017 Complete: Education materials (left at bedside) Educated patient on: Observe staff open pouch, empty pouch, and close pouch when emptying output. Read information booklet left at bedside inside new ileostomy post surgery kit from [facility] Additional information Patient was sleeping upon arrival yet easily aroused, however falling asleep during assessment and teaching. Stoma is noted to the right side upper abdomen and measuring 1 3/4". Ileostomy is dark pink, round, moist, moderately protruding, functioning with clear yellow liquid and small blood deposits noted in pouch that is intact. Ileostomy kit provided to patient and left at bedside. Deana Disla [facility] Aug 21, 2017 15:41
[2017-08-21] MEDS: ENOXAPARIN SODIUM 40 MG/0.4 ML SYRINGE SQ SCH (16:45)
[2017-08-22] VITALS (8 sets, daily range): BP systolic 118–134; BP diastolic 60–74; PULSE 67–98; RESP 16–19; TEMP 96–97.9; O2SAT 94–98
[2017-08-22] MEDS: D5-NS + KCL 20 MEQ INJ 1,000 ML IV SCH ×3 (00:12→14:03)
[2017-08-22] MEDS: PCA - TOTAL MG MORPHINE DELIVERED PER SHIFT SCH ×3 (04:52→20:44)
[2017-08-22] MEDS: MORPHINE SULFATE 30 MG/30 ML PCA IV SCH (06:35)
[2017-08-22] MEDS: POLYETHYLENE GLYCOL 17 GM PKG PO SCH (09:00)
[2017-08-22] MEDS: SODIUM CHLORIDE 0.9% FLUSH 5 ML FLUSH IVF SCH ×2 (09:00→20:44)
[2017-08-22] MEDS: DOCUSATE SODIUM 50 MG/SENNA 8.6 MG TAB PO SCH ×2 (09:13→20:42)
[2017-08-22] MEDS: DOCUSATE SODIUM 100 MG CAP PO SCH ×2 (09:13→20:42)
[2017-08-22] MEDS: DIGOXIN 0.25 MG TAB PO SCH (09:14)
[2017-08-22] MEDS: DILTIAZEM-CD 120 MG CAP ER PO SCH (09:14)
[2017-08-22] MEDS: SIMETHICONE 125 MG CHEWABLE TAB PO SCH (09:15)
--- NOTE | 2017-08-22 11:57 | HHI.PR ---
Subjective Remarks Follow-up partial small bowel obstruction 08/18/17-patient seen and examined, she had episode of emesis overnight. Patient is refusing NG tube to be put back in. Positive for flatus but no bowel movement 08/19/17-patient seen and examined, denies any nausea or vomiting as she was able to tolerate by mouth today. However patient still distended and denies any bowel movement although she still passing flatus. Case discussed with general surgery 08/20/17-patient seen and examined; distended and complaint of abdominal pain. Had episode of emesis yesterday. Currently nothing by mouth and plan for a trip to the OR 08/21/17-patient seen and examined, she status post exploratory laparoscopy with CAMILLA; NG tube in place, 08/22/17-patient seen and examined, NG tube was removed yesterday. More comfortable today. Objective Vitals Vital Signs Date Time Temp Pulse Resp B/P (MAP) Pulse Ox O2 Delivery O2 Flow Rate FiO2 08/22/17 09:06 98 Nasal Cannula 1.00 08/22/17 08:00 96.7 68 16 134/72 (92) 98 08/22/17 06:35 16 08/22/17 04:52 18 08/22/17 04:00 96.2 75 18 129/61 (83) 97 08/22/17 00:00 97.9 98 18 126/60 (82) 94 08/21/17 22:13 Nasal Cannula 2.00 08/21/17 22:00 16 08/21/17 20:51 97.4 94 18 131/61 (84) 92 08/21/17 16:00 96.4 98 17 104/70 (81) 92 08/21/17 12:00 96.1 95 18 116/87 (97) 97 I/O 08/21/17 08/21/17 08/21/17 08/22/17 08/22/17 08/22/17 07:00 15:00 23:00 07:00 15:00 23:00 Intake Total 1445 ml 1812 ml 1135 ml Output Total 650 ml 50 ml 450 ml 400 ml Balance 795 ml -50 ml 1362 ml 735 ml Intake Oral 310 ml 120 ml IV Total 1445 ml 1502 ml 1015 ml Output Urine Total 600 ml 450 ml 375 ml Stool Total 0 ml Gastric Drainage Total 50 ml 50 ml 25 ml Drainage Total 0 ml Result Diagram: 08/21/17 0438 08/21/17 0438 Objective Remarks GENERAL: NAD SKIN: Warm and dry. HEAD: Normocephalic. EYES: No scleral icterus. No injection or drainage. NECK: Supple, trachea midline. No JVD or lymphadenopathy. CARDIOVASCULAR: Regular rate and rhythm without murmurs, gallops, or rubs. RESPIRATORY: Breath sounds equal bilaterally. No accessory muscle use. GASTROINTESTINAL: Abdomen non-tender, distended. Incision c/d/i; ostomy bag in place MUSCULOSKELETAL: No cyanosis, or edema. BACK: Nontender without obvious deformity. No CVA tenderness. Procedures 1. Diagnostic laparoscopy. 2. Exploratory laparotomy. 3. Lysis of adhesions. 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
--- NOTE | 2017-08-22 13:35 | PD.WCN.NOT ---
Wound Consult Description: Consult for "new ostomy teaching of rmq end ileostomy" Communicated with: Patient Janie HARSHA Recommendation: Observe staff open pouch, empty pouch, and close pouch when emptying output. Read information booklet left at bedside inside new ileostomy post surgery kit from [facility] Additional Information: Patient seen on [address] [place] [address] for Ostomy assessment and teaching. Ostomy Type: Ileostomy (measuring 1 3/4") Surgeon: Mark Saldana MD Date of Surgery: Aug 20, 2017 Complete: Education materials (left at bedside), Rx (barrier and pouch size 2 1 /4" script on chart) Educated patient on: Appearance of stoma Output of stoma Size of stoma Additional information Patient seen on [address] [place] [address] for Ostomy assessment and teaching. Patient was sleeping upon arrival to room after speaking with FIREMAN regarding patient condition today. Patient is easily aroused yet weak and states fear of pain with emptying of pouch. It was explained to the patient that emptying the pouch is not painful. A mirror was provided for patient to visualize the stoma and pouch. Stoma is red, round, moist, functioning with yellow thick liquid effluent noted in pouch that is intact without leaks. Stoma is measuring 1 3/4" therefore appliances in size 2 1/4" will be ordered for next barrier and pouch change. Script filled out for appliances in size 2 1/4" and left on chart for Deana Thompson [facility] Aug 22, 2017 13:35
--- NOTE | 2017-08-22 16:07 | HHI.PR ---
Subjective Subjective Notes Resting in bed HARSHA Lima at bedside TRE Cook at bedside Objective Vitals/I&O Vital Signs Date Time Temp Pulse Resp B/P (MAP) Pulse Ox O2 Delivery O2 Flow Rate FiO2 08/22/17 14:00 16 08/22/17 12:00 96.8 67 118/65 (82) 96 08/22/17 09:06 Nasal Cannula 1.00 Labs Date/Time Source Procedure Growth Status 08/10/17 21:14 Urine Clean Catch Urine Culture - Final 50-100,000 CFU/ML MIXED NASIM... Complete Radiology Last Impressions Abdomen X-Ray 08/18/17 0000 Signed Impressions: Service Date/Time: Friday, August 18, 2017 00:31 - CONCLUSION: Gaseous distended small bowel loops. No NG tube identified. Juan Carlos Craroll MD Chest X-Ray 08/17/17 0000 Signed Impressions: Service Date/Time: Thursday, August 17, 2017 23:12 - CONCLUSION: Gastric tube folds back on itself at the level of the GE junction and the tip is probably in the distal esophagus. Juan Carlos Carroll MD CT Angiography 08/17/17 0000 Signed Impressions: Service Date/Time: Thursday, August 17, 2017 02:57 - CONCLUSION: 1. The study is negative for pulmonary embolism. 2. Abnormal appearance to both lungs with 2 smooth margin no masses in the anterior upper right lung and a prominent area of opacity in the posterior left lower lung without air bronchograms. Cannot exclude malignancy. 3. Low left axillary adenopathy. Juan Carlos Carroll MD Small Bowel X-Ray 08/11/17 0000 Signed Impressions: Service Date/Time: Friday, August 11, 2017 13:40 - CONCLUSION: Persistent partial obstruction at the level of the mid small bowel. Rectocele. Antonio Hayes MD Abdomen/Pelvis CT [id number] Signed Impressions: Service Date/Time: Thursday, August 10, 2017 20:57 - CONCLUSION: 1. Small bowel obstruction at the level of the distal jejunum or proximal ileum and appears to occur in the midabdomen. No mass or significant inflammatory changes are demonstrated, presumably obstruction related to adhesion. There is evidence of bowel resection and anastomosis in the right upper quadrant, and appears to be downstream of the obstruction. 2. Ventral hernia repair since the prior study. No recurrent defect. 3. Large staghorn calculus of the right kidney, not new but is associated with mild hydronephrosis currently. Antonio Hayes MD Cardiovascular: Regular Lungs: Clear Abdomen: Other (abdomen soft; tender; ileostomy with some liquid stool output; G tube to gravity ) Narrative Exam minimal generalized edema A/P Problem List: (1) SBO (small bowel obstruction) ICD Codes: K56.69 - Other intestinal obstruction Status: Chronic (2) UTI (urinary tract infection) ICD Codes: N39.0 - Urinary tract infection, site not specified Status: Acute (3) A-fib ICD Codes: I48.91 - Unspecified atrial fibrillation (4) MATTHEW (acute kidney injury) ICD Codes: N17.9 - Acute kidney failure, unspecified Status: Chronic Assessment and Plan 77 year old female with PSBO -POD2 ex lap; CAMILLA; small bowel resection with end-ileostomy; G tube placement -G tube to gravity -Clear liquids -EMT DISPATCHER for pain control -IVF -PT; OOB -Keep George in for now I CERTIFY AND ATTEST THAT I PERSONALLY EXAMINED THE PATIENT IN THEIR ROOM . MS LOWE DOCUMENTED OUR VISIT AND ENTERED ORDERS IN THE EMR UNDER MY DIRECT SUPERVISION. I REVIEWED THE CARE PLAN WITH THE PATIENT. KENJI YOUNG MD FACS Problem Qualifiers (1) A-fib: Qualified Codes: I48.2 - Chronic atrial fibrillation Marnie LoweP Aug 22, 2017 16:07 Kenji Young MD Aug 24, 2017 14:25
[2017-08-22] MEDS: ENOXAPARIN SODIUM 40 MG/0.4 ML SYRINGE SQ SCH (16:13)
[2017-08-23] VITALS (8 sets, daily range): BP systolic 108–155; BP diastolic 60–73; PULSE 61–73; RESP 16–22; TEMP 95.7–97.2; O2SAT 91–100
[2017-08-23] MEDS: PCA - TOTAL MG MORPHINE DELIVERED PER SHIFT SCH ×3 (05:04→22:00)
[2017-08-23] MEDS: D5-NS + KCL 20 MEQ INJ 1,000 ML IV SCH ×2 (05:05→16:20)
[2017-08-23] MEDS: SODIUM CHLORIDE 0.9% FLUSH 5 ML FLUSH IVF SCH ×2 (09:00→20:10)
[2017-08-23] MEDS: MORPHINE SULFATE 30 MG/30 ML PCA IV SCH (09:01)
[2017-08-23] MEDS: DOCUSATE SODIUM 100 MG CAP PO SCH ×2 (09:02→20:10)
[2017-08-23] MEDS: DILTIAZEM-CD 120 MG CAP ER PO SCH (09:02)
[2017-08-23] MEDS: POLYETHYLENE GLYCOL 17 GM PKG PO SCH (09:02)
[2017-08-23] MEDS: DIGOXIN 0.25 MG TAB PO SCH (09:02)
[2017-08-23] MEDS: DOCUSATE SODIUM 50 MG/SENNA 8.6 MG TAB PO SCH ×2 (09:02→20:10)
[2017-08-23] MEDS: SIMETHICONE 125 MG CHEWABLE TAB PO SCH (09:02)
--- NOTE | 2017-08-23 09:19 | HHI.PR ---
Subjective Subjective Notes "I've been hungry since yesterday" RN Judy at beside Objective Vitals/I&O Vital Signs Date Time Temp Pulse Resp B/P (MAP) Pulse Ox O2 Delivery O2 Flow Rate FiO2 08/23/17 09:03 98 21 08/23/17 09:01 16 08/23/17 08:00 96.6 62 155/65 (95) 08/22/17 18:45 Nasal Cannula 1.00 Labs Date/Time Source Procedure Growth Status 08/10/17 21:14 Urine Clean Catch Urine Culture - Final 50-100,000 CFU/ML MIXED NASIM... Complete Radiology Last Impressions Abdomen X-Ray 08/18/17 0000 Signed Impressions: Service Date/Time: Friday, August 18, 2017 00:31 - CONCLUSION: Gaseous distended small bowel loops. No NG tube identified. Juan Carlos Carroll MD Chest X-Ray 08/17/17 0000 Signed Impressions: Service Date/Time: Thursday, August 17, 2017 23:12 - CONCLUSION: Gastric tube folds back on itself at the level of the GE junction and the tip is probably in the distal esophagus. Juan Carlos Carroll MD CT Angiography 08/17/17 0000 Signed Impressions: Service Date/Time: Thursday, August 17, 2017 02:57 - CONCLUSION: 1. The study is negative for pulmonary embolism. 2. Abnormal appearance to both lungs with 2 smooth margin no masses in the anterior upper right lung and a prominent area of opacity in the posterior left lower lung without air bronchograms. Cannot exclude malignancy. 3. Low left axillary adenopathy. Juan Carlos Carroll MD Small Bowel X-Ray 08/11/17 0000 Signed Impressions: Service Date/Time: Friday, August 11, 2017 13:40 - CONCLUSION: Persistent partial obstruction at the level of the mid small bowel. Rectocele. Antonio Hayes MD Abdomen/Pelvis CT [id number] Signed Impressions: Service Date/Time: Thursday, August 10, 2017 20:57 - CONCLUSION: 1. Small bowel obstruction at the level of the distal jejunum or proximal ileum and appears to occur in the midabdomen. No mass or significant inflammatory changes are demonstrated, presumably obstruction related to adhesion. There is evidence of bowel resection and anastomosis in the right upper quadrant, and appears to be downstream of the obstruction. 2. Ventral hernia repair since the prior study. No recurrent defect. 3. Large staghorn calculus of the right kidney, not new but is associated with mild hydronephrosis currently. Antonio Hayes MD Cardiovascular: Regular Lungs: Clear Abdomen: Other (midline incision with c/d/i dressing; ileostomy in place with stool in bag; G tube to gravity), Post-op tenderness Narrative Exam minimal generalized edema A/P Problem List: (1) SBO (small bowel obstruction) ICD Codes: K56.69 - Other intestinal obstruction Status: Chronic (2) UTI (urinary tract infection) ICD Codes: N39.0 - Urinary tract infection, site not specified Status: Acute (3) A-fib ICD Codes: I48.91 - Unspecified atrial fibrillation (4) MATTHEW (acute kidney injury) ICD Codes: N17.9 - Acute kidney failure, unspecified Status: Chronic Assessment and Plan 77 year old female with PSBO -POD3 ex lap; CAMILLA; small bowel resection with end-ileostomy; G tube placement -Cap G tube -Advance to Full liquids -BROMINATION EQUIPMENT OPERATOR for pain control -IVF -PT; OOB -Keep George in for now -Hospice as been consulted I CERTIFY AND ATTEST THAT I PERSONALLY EXAMINED THE PATIENT IN THEIR ROOM . MS LOWE DOCUMENTED OUR VISIT AND ENTERED ORDERS IN THE EMR UNDER MY DIRECT SUPERVISION. I REVIEWED THE CARE PLAN WITH THE PATIENT. KENJI YOUNG MD FACS Problem Qualifiers (1) A-fib: Qualified Codes: I48.2 - Chronic atrial fibrillation Marnie Lowe Aug 23, 2017 09:19 Kenji Young MD Aug 24, 2017 14:25
--- NOTE | 2017-08-23 11:00 | PD.WCN.NOT ---
Wound Consult Description: Consult for "new ostomy teaching of rmq end ileostomy" Communicated with: Patient JOHN Kim Recommendation: Observe staff open pouch, empty pouch, and close pouch when emptying output. Read information booklet left at bedside inside new ileostomy post surgery kit from [facility] Additional Information: Patient seen on for ostomy assessment and teaching. Ostomy Type: Ileostomy (measuring 1 3/4") Surgeon: Mark Saldana MD Date of Surgery: Aug 20, 2017 Complete: Education materials (left at bedside), Rx (barrier and pouch size 2 1 /4" script on chart) Educated patient on: Reinforced that emptying the pouch of effluent will not hurt her. Additional information Upon entering patients room and introducing myself, patient states that she does not want me to hurt her when pulling out the tube. It was explained to her that report writer was not there to pull out any tubes, only there to look at her stoma and the output and that this would not hurt her. Stoma was visualized as red, round, moist, moderately protruding, lumen noted in center, and functioning with liquid brown/green effluent noted in (urostomy) pouch with 2 minimally broken down pills. Stoma measured 1 3/4". During assessment of stoma, right forearm was noted to be edematous near the iv and when her arm was repositioned, the patient stated pain. IV fluids were immediately stopped and JOHN Kim was called via [place] and notified in person of the appearance of iv site, the stopped iv fluids, the pills noted in pouch, and the urostomy pouch on the colostomy. De[facility] Disla [facility] Aug 23, 2017 11:00
--- NOTE | 2017-08-23 11:41 | HHI.PR ---
Subjective Remarks Follow-up partial small bowel obstruction 08/18/17-patient seen and examined, she had episode of emesis overnight. Patient is refusing NG tube to be put back in. Positive for flatus but no bowel movement 08/19/17-patient seen and examined, denies any nausea or vomiting as she was able to tolerate by mouth today. However patient still distended and denies any bowel movement although she still passing flatus. Case discussed with general surgery 08/20/17-patient seen and examined; distended and complaint of abdominal pain. Had episode of emesis yesterday. Currently nothing by mouth and plan for a trip to the OR 08/21/17-patient seen and examined, she status post exploratory laparoscopy with CAMILLA; NG tube in place, 08/22/17-patient seen and examined, NG tube was removed yesterday. More comfortable today. 08/23/17-patient seen and examined, complains of abdominal pain Objective Vitals Vital Signs Date Time Temp Pulse Resp B/P (MAP) Pulse Ox O2 Delivery O2 Flow Rate FiO2 08/23/17 09:03 98 21 08/23/17 09:01 16 08/23/17 08:00 96.6 62 19 155/65 (95) 100 08/23/17 05:04 17 08/23/17 04:00 96.6 63 17 125/69 (87) 99 08/23/17 00:00 97.1 61 16 121/60 (80) 99 08/22/17 20:44 18 08/22/17 20:00 96.0 74 16 118/63 (81) 97 08/22/17 18:45 98 Nasal Cannula 1.00 08/22/17 16:00 96.9 69 19 127/74 (91) 98 08/22/17 14:00 16 08/22/17 12:00 96.8 67 18 118/65 (82) 96 I/O 08/22/17 08/22/17 08/22/17 08/23/17 08/23/17 08/23/17 07:00 15:00 23:00 07:00 15:00 23:00 Intake Total 1135 ml 950 ml 317 ml 1410 ml Output Total 400 ml 975 ml 1550 ml Balance 735 ml 950 ml -658 ml -140 ml Intake Oral 120 ml 120 ml 240 ml IV Total 1015 ml 950 ml 197 ml 1170 ml Output Urine Total 375 ml 900 ml 950 ml Stool Total 0 ml 75 ml 600 ml Gastric Drainage Total 25 ml Result Diagram: 08/21/1743708/21/17437 Objective Remarks GENERAL: NAD SKIN: Warm and dry. HEAD: Normocephalic. EYES: No scleral icterus. No injection or drainage. NECK: Supple, trachea midline. No JVD or lymphadenopathy. CARDIOVASCULAR: Regular rate and rhythm without murmurs, gallops, or rubs. RESPIRATORY: Breath sounds equal bilaterally. No accessory muscle use. GASTROINTESTINAL: Abdomen non-tender, nondistended. end ileostomy; G tube in place MUSCULOSKELETAL: No cyanosis, or edema. BACK: Nontender without obvious deformity. No CVA tenderness. Procedures 1. Diagnostic laparoscopy. 2. Exploratory laparotomy. 3. Lysis of adhesions. 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
[2017-08-23 13:44] LABS: BLOOD GAS BASE EXCESS 6.1 mmol/L (-2-2); BLOOD GAS HCO3 32 mmol/L (22-26); BLOOD GAS METHEMOGLOBIN 0.7 % (0-2); BLOOD GAS O2 HGB SATURATION 95 % (90-100); BLOOD GAS OXYGEN CONTENT 14.9 Vol % (12.0-20.0); BLOOD GAS PCO2 69 mmHg (38-42); BLOOD GAS PO2 104 mmHg (61-120); TEMP CORR TO 98.6
[2017-08-23 13:46] LABS: CRITICAL VALUE YES; OXYGEN DEVICE NASAL CANNULA
[2017-08-23 13:47] LABS: DRAW SITE RT RADIAL; LITER FLOW 2 L/M; NUMBER OF ARTERIAL PUNCTURES 1; STAT NO; ULNAR PULSE PRESENT
--- NOTE | 2017-08-23 14:41 | RADRPT ---
EXAM DATE/TIME: 08/23/2017 13:14 [place] COMPARISON: CHEST SINGLE AP, August 17, 2017, 23:12. INDICATIONS : Evaluate for infiltrate. MEDICAL HISTORY : Arthritis. Renal calculi. Asthma SURGICAL HISTORY : Tubal ligation. Hernia repair. ENCOUNTER: Subsequent ACUITY: 2 weeks PAIN SCORE: 8/10 LOCATION: Bilateral chest FINDINGS: Interval removal of suction type nasoenteric catheter. Stable bilateral perihilar patchy airspace dis ease. Small left pleural effusion and associated left lower lobe airspace disease. Cardiac silhouette is enlarged. CONCLUSION: 1. Worsening small left pleural effusion with associated left lower lobe airspace disease. 2. Stable mild positive fluid balance. Derrick May MD on August 23, 2017 at 14:37 Board Certified Radiologist. This report was verified electronically.
[2017-08-23] MEDS: ENOXAPARIN SODIUM 40 MG/0.4 ML SYRINGE SQ SCH (16:20)
[2017-08-23] MEDS: RESP: ALBUTEROL 2.5 MG/IPRATROPIUM 0.5 MG NEB (SCH) NEB (20:30)
[2017-08-24] VITALS: BP 137/63; PULSE 78; RESP 20; TEMP 97.5; O2SAT 98
[2017-08-24] MEDS: D5-NS + KCL 20 MEQ INJ 1,000 ML IV SCH (04:47)
[2017-08-24] MEDS: PCA - TOTAL MG MORPHINE DELIVERED PER SHIFT SCH ×3 (05:11→19:52)
--- NOTE | 2017-08-24 07:56 | MB ---
cc: FRANCISCO DIANA JOHN DATE OF CONSULTATION: 08/23/2017 REASON FOR CONSULTATION Pulmonary nodules and dyspnea. HISTORY OF PRESENT ILLNESS This is a 77-year-old obese lady who was initially admitted with a history of abdominal discomfort, nausea, vomiting and bowel obstruction. The patient also had some diarrhea. She was short of breath upon admission and had to be placed on oxygen. She was evaluated by the surgical team and had an NG tube placed and decompressed. She has improved over the past few days. She had a CT of the abdomen as well as a chest CT. The abdominal CT showed small bowel obstruction at the level of the distal jejunum. No mass was seen. Chest CT showed nodular areas and mediastinal densities as well and these were suspicious for neoplasm. The patient has a mild cough and some wheezing. No hemoptysis. No fevers or chills. She is a poor historian. PAST MEDICAL HISTORY 1. Hypertension. 2. History of depression and anxiety. 3. History of colon cancer with partial colectomy as well as partial liver resection. 4. Atrial fibrillation. PAST SURGICAL HISTORY 1. Partial colectomy and liver resection. 2. Tubal ligation. ALLERGIES None listed. FAMILY HISTORY Noncontributory HABITS The patient does not smoke. No history of alcohol use. She is in assisted living. REVIEW OF SYSTEMS The patient is unable to cooperate or give any significant details. PHYSICAL EXAMINATION GENERAL: This is an obese elderly -Prydeinig female who is laying flat. VITAL SIGNS: She is on oxygen via nasal cannula at 4 liters. Blood pressure 160/70, pulse 90 respirations 24, temperature 98.2. HEENT: Head normocephalic. Pupils reactive. Arcus senilis is seen. Tongue is dry. Throat is injected. Nasal mucosa is edematous. NECK: Supple. No bruits. No thyroid enlargement. No lymphadenopathy. CHEST: Decreased breath sounds at the bases with occasional bibasilar crackles. HEART: The heart sounds are irregular, S1, S2, with no murmur or S3. ABDOMEN: Soft, obese, without masses or organomegaly. Bowel sounds are active. EXTREMITIES: Edema 1+ with diminished pulses. NEUROLOGIC: Reflexes are brisk with no gross motor deficits. Cranial nerves are grossly intact. SKIN: No lesions. IMPRESSION 1. Basilar atelectasis with hypoxemia. 2. Right pulmonary nodules, etiology undetermined. 3. History of colon cancer status post resection. 4. History of depression and anxiety. 5. Metastatic carcinoma of colon with intraabdominal mets with Bowel Obstruction PLAN The patient will be maintained on O2 at 2-3 liters to keep sats over 92. Bedside pulmonary function study to be done with bronchodilators. The patient will need a follow-up PET/CT scan in one month. We will also consider doing a needle aspiration of one of the lung nodules since they are close to the chest wall. Incentive spirometry will be added every four hours. Will need palliative care to see . The patient will be started on physical therapy as well.Prognosis is guarded. Thank you Dr. Diana for this consultation. Antonio Bates MD JVD/JOSELINE /12:30 AM /7:28 AM YESSENIA
[2017-08-24 08:00] VITALS: BP 100/55; PULSE 70; PULSE 85; RESP 19; RESP 20; TEMP 97.3; O2SAT 95; O2SAT 98
[2017-08-24] MEDS: RESP: ALBUTEROL 2.5 MG/IPRATROPIUM 0.5 MG NEB (SCH) NEB ×4 (08:00→20:53)
[2017-08-24] MEDS: DOCUSATE SODIUM 100 MG CAP PO SCH ×2 (08:55→19:52)
[2017-08-24] MEDS: DOCUSATE SODIUM 50 MG/SENNA 8.6 MG TAB PO SCH ×2 (08:55→19:52)
[2017-08-24] MEDS: POLYETHYLENE GLYCOL 17 GM PKG PO SCH (08:55)
[2017-08-24] MEDS: DIGOXIN 0.25 MG TAB PO SCH (08:55)
[2017-08-24] MEDS: SODIUM CHLORIDE 0.9% FLUSH 5 ML FLUSH IVF SCH ×2 (09:00→19:51)
[2017-08-24] MEDS: MORPHINE SULFATE 30 MG/30 ML PCA IV SCH (09:02)
[2017-08-24] MEDS: DILTIAZEM-CD 120 MG CAP ER PO SCH (09:10)
[2017-08-24] MEDS: SIMETHICONE 125 MG CHEWABLE TAB PO SCH (09:12)
--- NOTE | 2017-08-24 10:16 | HHI.PR ---
Subjective Subjective Notes Currently in pain Up to the chair Pushed GEAR DESIGN ENGINEER button Objective Vitals/I&O Vital Signs Date Time Temp Pulse Resp B/P (MAP) Pulse Ox O2 Delivery O2 Flow Rate FiO2 08/24/17 08:00 97.3 85 19 100/55 (70) 95 08/23/17 20:33 Nasal Cannula 2.00 08/23/17 09:03 21 Labs Laboratory Tests Test 08/23/17 13:32 Blood Gas Puncture Site RT RADIAL Blood Gas Patient Temperature 98.6 Blood Gas HCO3 32 Blood Gas Base Excess 6.1 Blood Gas Oxygen Saturation 95 Arterial Blood pH 7.30 Arterial Blood Partial Pressure CO2 69 Arterial Blood Partial Pressure O2 104 Arterial Blood Oxygen Content 14.9 Arterial Blood Carboxyhemoglobin 2.0 Arterial Blood Methemoglobin 0.7 Blood Gas Hemoglobin 11.0 Oxygen Delivery Device NASAL CANNULA Blood Gas Liter Flow 2 Date/Time Source Procedure Growth Status 08/10/17 21:14 Urine Clean Catch Urine Culture - Final 50-100,000 CFU/ML MIXED NASIM... Complete Radiology Last Impressions Abdomen X-Ray 08/18/17 0000 Signed Impressions: Service Date/Time: Friday, August 18, 2017 00:31 - CONCLUSION: Gaseous distended small bowel loops. No NG tube identified. Juan Carlos Carroll MD Chest X-Ray 08/17/17 0000 Signed Impressions: Service Date/Time: Thursday, August 17, 2017 23:12 - CONCLUSION: Gastric tube folds back on itself at the level of the GE junction and the tip is probably in the distal esophagus. Juan Carlos Carroll MD CT Angiography 08/17/17 0000 Signed Impressions: Service Date/Time: Thursday, August 17, 2017 02:57 - CONCLUSION: 1. The study is negative for pulmonary embolism. 2. Abnormal appearance to both lungs with 2 smooth margin no masses in the anterior upper right lung and a prominent area of opacity in the posterior left lower lung without air bronchograms. Cannot exclude malignancy. 3. Low left axillary adenopathy. Juan Carlos Carroll MD Small Bowel X-Ray 08/11/17 0000 Signed Impressions: Service Date/Time: Friday, August 11, 2017 13:40 - CONCLUSION: Persistent partial obstruction at the level of the mid small bowel. Rectocele. Antonio Hayes MD Abdomen/Pelvis CT 08/10/[id number] Signed Impressions: Service Date/Time: Thursday, August 10, 2017 20:57 - CONCLUSION: 1. Small bowel obstruction at the level of the distal jejunum or proximal ileum and appears to occur in the midabdomen. No mass or significant inflammatory changes are demonstrated, presumably obstruction related to adhesion. There is evidence of bowel resection and anastomosis in the right upper quadrant, and appears to be downstream of the obstruction. 2. Ventral hernia repair since the prior study. No recurrent defect. 3. Large staghorn calculus of the right kidney, not new but is associated with mild hydronephrosis currently. Antonio Hayes MD Cardiovascular: Regular Lungs: Clear Abdomen: Other (midline incision with aidan---dressing changed; G tube capped ; ileostomy in place with stool in bag ) Narrative Exam minimal generalized edema A/P Problem List: (1) SBO (small bowel obstruction) ICD Codes: K56.69 - Other intestinal obstruction Status: Chronic (2) UTI (urinary tract infection) ICD Codes: N39.0 - Urinary tract infection, site not specified Status: Acute (3) A-fib ICD Codes: I48.91 - Unspecified atrial fibrillation (4) MATTHEW (acute kidney injury) ICD Codes: N17.9 - Acute kidney failure, unspecified Status: Chronic Assessment and Plan 77 year old female with PSBO -POD4 ex lap; CAMILLA; small bowel resection with end-ileostomy; G tube placement -Continue to cap G tube -Tolerating regular diet -GEAR DESIGN ENGINEER for pain control -IVF -PT; OOB -Keep George in for now -Hospice as been consulted DIET TOLERATED. G TUBE CLAMPED AND ILEOSTOMY WORKING. KVO IVF. ADD PO PAIN MEDS AND WEAN OFF GEAR DESIGN ENGINEER. REHAB NEXT WEEK. FAMILY WANTS TO WAIT ON HOSPICE. I DO NOT THINK SHE NEEDS WORK UP OF PULMONARY NODULES SHE HAS WIDELY METASTATIC COLON CANCER AND DOES NOT WANT ANY CHEMO. I AM OFF THIS WEEKEND AND WILL RETURN SUNDAY. PATIENT IS AWARE. PLEASE CALL THE GYNECOLOGY TEACHER SURGEON FOR [facility] IF THERE ARE ANY SURGICAL QUESTIONS OR CONCERNS. THANKS KENJI YOUNG MD FACS. Problem Qualifiers (1) A-fib: Qualified Codes: I48.2 - Chronic atrial fibrillation Marnie Lowe Aug 24, 2017 10:16 Kenji Young MD Aug 24, 2017 14:30
[2017-08-24 12:00] VITALS: BP_SYST 119; BP_SYST 127; BP_DIAS 69; BP_DIAS 70; PULSE 70; PULSE 93; RESP 18; RESP 20; TEMP 96.9; TEMP 97.6; O2SAT 97; O2SAT 99
--- NOTE | 2017-08-24 12:10 | HHI.PR ---
Subjective Remarks Follow-up partial small bowel obstruction 08/18/17-patient seen and examined, she had episode of emesis overnight. Patient is refusing NG tube to be put back in. Positive for flatus but no bowel movement 08/19/17-patient seen and examined, denies any nausea or vomiting as she was able to tolerate by mouth today. However patient still distended and denies any bowel movement although she still passing flatus. Case discussed with general surgery 08/20/17-patient seen and examined; distended and complaint of abdominal pain. Had episode of emesis yesterday. Currently nothing by mouth and plan for a trip to the OR 08/21/17-patient seen and examined, she status post exploratory laparoscopy with CAMILLA; NG tube in place, 08/22/17-patient seen and examined, NG tube was removed yesterday. More comfortable today. 08/23/17-patient seen and examined, complains of abdominal pain 08/24/17-patient is resting comfortably. Per nurse report, patient's daughter is postponed hospice until after patient completes rehabilitation at [facility] Objective Vitals Vital Signs Date Time Temp Pulse Resp B/P (MAP) Pulse Ox O2 Delivery O2 Flow Rate FiO2 08/24/17 08:00 97.3 85 19 100/55 (70) 95 08/24/17 08:00 97.3 70 20 100/55 (70) 98 08/24/17 05:11 19 08/24/17 00:00 97.5 78 20 137/63 (87) 98 08/23/17 22:00 18 08/23/17 20:33 98 Nasal Cannula 2.00 08/23/17 20:00 97.2 65 22 108/62 (77) 99 08/23/17 16:00 95.7 65 18 152/73 (99) 98 08/23/17 14:00 14 I/O 08/23/17 08/23/17 08/23/17 08/24/17 08/24/17 08/24/17 07:00 15:00 23:00 07:00 15:00 23:00 Intake Total 1410 ml 839 ml 685 ml 240 ml Output Total 1550 ml 1450 ml 500 ml 300 ml Balance -140 ml -611 ml 185 ml -60 ml Intake Oral 240 ml 480 ml 240 ml IV Total 1170 ml 359 ml 685 ml Output Urine Total 950 ml 1150 ml 500 ml Stool Total 600 ml 300 ml 300 ml # Bowel Movements 0 Result Diagram: 08/21/1743708/21/17437 Objective Remarks GENERAL: NAD SKIN: Warm and dry. HEAD: Normocephalic. EYES: No scleral icterus. No injection or drainage. NECK: Supple, trachea midline. No JVD or lymphadenopathy. CARDIOVASCULAR: Regular rate and rhythm without murmurs, gallops, or rubs. RESPIRATORY: Breath sounds equal bilaterally. No accessory muscle use. GASTROINTESTINAL: Abdomen non-tender, nondistended. end ileostomy; G tube in place MUSCULOSKELETAL: No cyanosis, or edema. BACK: Nontender without obvious deformity. No CVA tenderness. Procedures 1. Diagnostic laparoscopy. 2. Exploratory laparotomy. 3. Lysis of adhesions. 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
[2017-08-24] MEDS ORDERED: ACETAMINOPHEN/HYDROcodone 325 MG/5 MG TAB PO PRN (15:00)
--- NOTE | 2017-08-24 15:14 | PD.WCN.NOT ---
Wound Consult Description: Consult for "new ostomy teaching of rmq end ileostomy" Communicated with: Patient Recommendation: Observe staff open pouch, empty pouch, and close pouch when emptying output. Additional Information: Patient seen on [address] [place] [address] for ostomy assessment and teaching Ostomy Type: Ileostomy (measuring 1 3/4") Surgeon: Mark Saldana MD Date of Surgery: Aug 20, 2017 Complete: Education materials (left at bedside), Rx (barrier and pouch size 2 1 /4" script on chart) Educated patient on: Patient was educated on her stoma, the output, size, color, and need for emptying with pouch filled moderately with air and ~200ml effluent noted in urostomy pouch. Stoma size and appearance Peristomal skin care Supplies in room How often to change the barrier When to empty the pouch Additional information Stoma was visualized as red, round, moist, minimally edematous, moderately protruding, lumen noted in center, and functioning with green liquid/soft effluent noted in (urostomy) pouch that was changed to an open ended colostomy pouch. Stoma measured 1 3/4". Barrier is intact with new pouch placed on low pressure adaptor. Deana Disla [facility] Aug 24, 2017 15:14
[2017-08-24 16:00] VITALS: BP 102/66; PULSE 95; RESP 20; TEMP 97.4; O2SAT 95
[2017-08-24] MEDS: ENOXAPARIN SODIUM 40 MG/0.4 ML SYRINGE SQ SCH (16:50)
--- NOTE | 2017-08-24 18:27 | HHI.PR ---
Subjective Remarks Alert and on O2 2 L. Able to take a diet. Palliative care will see her. No respiratory distress Objective Vital Signs Date Time Temp Pulse Resp B/P (MAP) Pulse Ox O2 Delivery O2 Flow Rate FiO2 08/24/17 16:00 97.4 95 20 102/66 (78) 95 08/24/17 12:00 96.9 93 20 127/69 (88) 99 08/24/17 12:00 97.6 70 18 119/70 (86) 97 08/24/17 08:00 97.3 85 19 100/55 (70) 95 08/24/17 08:00 97.3 70 20 100/55 (70) 98 08/24/17 05:11 19 08/24/17 00:00 97.5 78 20 137/63 (87) 98 08/23/17 22:00 18 08/23/17 20:33 98 Nasal Cannula 2.00 08/23/17 20:00 97.2 65 22 108/62 (77) 99 I/O 08/23/17 08/23/17 08/23/17 08/24/17 08/24/17 08/24/17 07:00 15:00 23:00 07:00 15:00 23:00 Intake Total 1410 ml 839 ml 685 ml 240 ml 883 ml Output Total 1550 ml 1450 ml 500 ml 500 ml Balance -140 ml -611 ml 185 ml -260 ml 883 ml Intake Oral 240 ml 480 ml 240 ml 25 ml IV Total 1170 ml 359 ml 685 ml 858 ml Output Urine Total 950 ml 1150 ml 500 ml Stool Total 600 ml 300 ml 500 ml # Bowel Movements 0 Result Diagram: 08/21/17 0438 08/21/17 0438 Objective Remarks GENERAL: This is an obese elderly -[place] female who is laying flat. VITAL SIGNS: She is on oxygen via nasal cannula at 4 liters. HEENT: Head normocephalic. Pupils reactive. Arcus senilis is seen. Tongue is dry. Throat is injected. Nasal mucosa is clear. NECK: Supple. No bruits. No thyroid enlargement. No lymphadenopathy. CHEST: Decreased breath sounds at the bases with occasional bibasilar crackles. HEART: The heart sounds are irregular, S1, S2, with no murmur or S3. ABDOMEN: Soft, obese, without masses or organomegaly. Bowel sounds are active.Incision with dressing EXTREMITIES: Edema 1+ with diminished pulses. NEUROLOGIC: Reflexes are brisk with no gross motor deficits. Cranial nerves are grossly intact. SKIN: No lesions. Assessment and Plan Assessment and Plan IMPRESSION 1. Basilar atelectasis with hypoxemia. 2. Right pulmonary nodules, etiology undetermined. 3. History of colon cancer status post resection. 4. History of depression and anxiety. 5. Carcinomatosis with bowel obstruction. Plan : 1. Leave on O2 2 L. 2. Pain control as ordered. 3. Nebs qiradha , danilob. 4. Will need palliative care to see. 5. No Biopsy planned fro lung nodules. 6. Will follow as needed. Zee Bates MD Aug 24, 2017 18:27
[2017-08-24 20:00] VITALS: BP 116/57; PULSE 73; RESP 20; TEMP 97.8; O2SAT 98
[2017-08-24 20:53] VITALS: O2SAT 98
[2017-08-25] VITALS (7 sets, daily range): BP systolic 100–128; BP diastolic 57–65; PULSE 67–85; RESP 16–19; TEMP 96.1–97.6; O2SAT 93–100
[2017-08-25] MEDS: PCA - TOTAL MG MORPHINE DELIVERED PER SHIFT SCH ×3 (05:37→21:17)
[2017-08-25] MEDS: SIMETHICONE 125 MG CHEWABLE TAB PO SCH (08:29)
[2017-08-25] MEDS: DOCUSATE SODIUM 100 MG CAP PO SCH ×2 (08:30→21:17)
[2017-08-25] MEDS: DOCUSATE SODIUM 50 MG/SENNA 8.6 MG TAB PO SCH ×2 (08:30→21:17)
[2017-08-25] MEDS: DILTIAZEM-CD 120 MG CAP ER PO SCH (08:30)
[2017-08-25] MEDS: POLYETHYLENE GLYCOL 17 GM PKG PO SCH (08:31)
[2017-08-25] MEDS: DIGOXIN 0.25 MG TAB PO SCH (08:33)
[2017-08-25] MEDS: SODIUM CHLORIDE 0.9% FLUSH 5 ML FLUSH IVF SCH ×2 (08:33→21:00)
[2017-08-25] MEDS: RESP: ALBUTEROL 2.5 MG/IPRATROPIUM 0.5 MG NEB (SCH) NEB ×4 (09:16→20:36)
[2017-08-25] MEDS: D5-NS + KCL 20 MEQ INJ 1,000 ML IV SCH (10:40)
--- NOTE | 2017-08-25 13:21 | HHI.PR ---
Subjective Remarks Follow-up partial small bowel obstruction 08/18/17-patient seen and examined, she had episode of emesis overnight. Patient is refusing NG tube to be put back in. Positive for flatus but no bowel movement 08/19/17-patient seen and examined, denies any nausea or vomiting as she was able to tolerate by mouth today. However patient still distended and denies any bowel movement although she still passing flatus. Case discussed with general surgery 08/20/17-patient seen and examined; distended and complaint of abdominal pain. Had episode of emesis yesterday. Currently nothing by mouth and plan for a trip to the OR 08/21/17-patient seen and examined, she status post exploratory laparoscopy with CAMILLA; NG tube in place, 08/22/17-patient seen and examined, NG tube was removed yesterday. More comfortable today. 08/23/17-patient seen and examined, complains of abdominal pain 08/24/17-patient is resting comfortably. Per nurse report, patient's daughter is postponed hospice until after patient completes rehabilitation at SNF 08/25/17-patient seen and examined, stable and no complaints of pain. Tolerated by mouth without any nausea and vomiting. Afebrile. Objective Vitals Vital Signs Date Time Temp Pulse Resp B/P (MAP) Pulse Ox O2 Delivery O2 Flow Rate FiO2 08/25/17 09:19 97 Nasal Cannula 2.00 08/25/17 08:00 97.0 67 17 118/60 (79) 99 08/25/17 05:37 18 08/25/17 00:00 97.6 80 16 112/62 (79) 100 08/24/17 20:53 98 Nasal Cannula 2.00 08/24/17 20:00 97.8 73 20 116/57 (76) 98 08/24/17 19:52 18 08/24/17 16:00 97.4 95 20 102/66 (78) 95 I/O 08/24/17 08/24/17 08/24/17 08/25/17 08/25/17 08/25/17 07:00 15:00 23:00 07:00 15:00 23:00 Intake Total 685 ml 240 ml 883 ml 360 ml Output Total 500 ml 500 ml 1000 ml 1650 ml Balance 185 ml -260 ml -117 ml -1290 ml Intake Oral 240 ml 25 ml 360 ml IV Total 685 ml 858 ml Output Urine Total 500 ml 1650 ml Stool Total 500 ml 1000 ml # Bowel Movements 0 Result Diagram: 08/21/178 08/21/17 0438 Imaging Last Impressions Chest X-Ray 08/23/17 0000 Signed Impressions: Service Date/Time: July 13:14 - CONCLUSION: 1. Worsening small left pleural effusion with associated left lower lobe airspace disease. 2. Stable mild positive fluid balance. Derrick May MD Abdomen X-Ray 08/20/17 0600 Signed Impressions: Service Date/Time: Sunday, August 20, 2017 08:47 - CONCLUSION: 1. Decreased bowel distention, limited study. Domo Gaxiola MD CT Angiography 08/17/17 0000 Signed Impressions: Service Date/Time: Thursday, August 17, 2017 02:57 - CONCLUSION: 1. The study is negative for pulmonary embolism. 2. Abnormal appearance to both lungs with 2 smooth margin no masses in the anterior upper right lung and a prominent area of opacity in the posterior left lower lung without air bronchograms. Cannot exclude malignancy. 3. Low left axillary adenopathy. Juan Carlos Carroll MD Small Bowel X-Ray 08/11/17 0000 Signed Impressions: Service Date/Time: Friday, August 11, 2017 13:40 - CONCLUSION: Persistent partial obstruction at the level of the mid small bowel. Rectocele. Antonio Hayes MD Abdomen/Pelvis CT 08/10/17 192 Signed Impressions: Service Date/Time: Thursday, August 10, 2017 20:57 - CONCLUSION: 1. Small bowel obstruction at the level of the distal jejunum or proximal ileum and appears to occur in the midabdomen. No mass or significant inflammatory changes are demonstrated, presumably obstruction related to adhesion. There is evidence of bowel resection and anastomosis in the right upper quadrant, and appears to be downstream of the obstruction. 2. Ventral hernia repair since the prior study. No recurrent defect. 3. Large staghorn calculus of the right kidney, not new but is associated with mild hydronephrosis currently. Antonio Hayes MD Objective Remarks GENERAL: NAD SKIN: Warm and dry. HEAD: Normocephalic. EYES: No scleral icterus. No injection or drainage. NECK: Supple, trachea midline. No JVD or lymphadenopathy. CARDIOVASCULAR: Regular rate and rhythm without murmurs, gallops, or rubs. RESPIRATORY: Breath sounds equal bilaterally. No accessory muscle use. GASTROINTESTINAL: Abdomen non-tender, nondistended. end ileostomy; G tube in place MUSCULOSKELETAL: No cyanosis, or edema. BACK: Nontender without obvious deformity. No CVA tenderness. Procedures 1. Diagnostic laparoscopy. 2. Exploratory laparotomy. 3. Lysis of adhesions. 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
[2017-08-25] MEDS: ENOXAPARIN SODIUM 40 MG/0.4 ML SYRINGE SQ SCH (15:57)
--- NOTE | 2017-08-25 18:47 | HHI.PR ---
Subjective Remarks Alert and on O2 3 L. No pain or nausea. Palliative care will see her. No respiratory distress Objective Vital Signs Date Time Temp Pulse Resp B/P (MAP) Pulse Ox O2 Delivery O2 Flow Rate FiO2 08/25/17 16:00 96.1 74 19 123/57 (79) 99 08/25/17 12:00 96.2 85 18 128/65 (86) 96 08/25/17 09:19 97 Nasal Cannula 2.00 08/25/17 08:00 97.0 67 17 118/60 (79) 99 08/25/17 05:37 18 08/25/17 00:00 97.6 80 16 112/62 (79) 100 08/24/17 20:53 98 Nasal Cannula 2.00 08/24/17 20:00 97.8 73 20 116/57 (76) 98 08/24/17 19:52 18 I/O 08/24/17 08/24/17 08/24/17 08/25/17 08/25/17 08/25/17 07:00 15:00 23:00 07:00 15:00 23:00 Intake Total 685 ml 240 ml 883 ml 360 ml 802 ml Output Total 500 ml 500 ml 1000 ml 1650 ml 1400 ml Balance 185 ml -260 ml -117 ml -1290 ml -598 ml Intake Oral 240 ml 25 ml 360 ml 450 ml IV Total 685 ml 858 ml 352 ml Output Urine Total 500 ml 1650 ml 1150 ml Stool Total 500 ml 1000 ml 250 ml # Bowel Movements 0 Result Diagram: 08/21/1743708/21/17437 Objective Remarks GENERAL: This is an obese elderly -Sud[place] female who is laying flat. VITAL SIGNS: She is on oxygen via nasal cannula at 4 liters. HEENT: Head normocephalic. Pupils reactive. Arcus senilis is seen. Tongue is dry. Throat is injected. Nasal mucosa is clear. NECK: Supple. No bruits. No thyroid enlargement. No lymphadenopathy. CHEST: Decreased breath sounds at the bases with occasional bibasilar crackles. HEART: The heart sounds are irregular, S1, S2, with no murmur or S3. ABDOMEN: Soft, obese, without masses or organomegaly. Bowel sounds are active. EXTREMITIES: Edema 1+ with diminished pulses. NEUROLOGIC: Reflexes are 1 + with no gross motor deficits. . SKIN: No lesions. Assessment and Plan Assessment and Plan IMPRESSION 1. Basilar atelectasis with hypoxemia. 2. Right pulmonary nodules, etiology undetermined. 3. History of colon cancer status post resection. 4. History of depression and anxiety. 5. Carcinomatosis with bowel obstruction. Plan : 1. Leave on O2 2 L. 2. Pain control as ordered. 3. Nebs qid , duoneb. 4. Will need palliative care to see. 5. No Biopsy planned for lung nodules. 6. Will Arrange home O2 2 L Zee Bates MD Aug 25, 2017 18:47
[2017-08-26] VITALS (7 sets, daily range): BP systolic 97–120; BP diastolic 53–71; PULSE 69–97; RESP 15–18; TEMP 96.3–97.4; O2SAT 92–100
[2017-08-26] MEDS: ONDANSETRON HCL 4 MG/2 ML VIAL IV PRN (02:37)
[2017-08-26] MEDS: MORPHINE SULFATE 30 MG/30 ML PCA IV SCH (02:37)
[2017-08-26] MEDS: PCA - TOTAL MG MORPHINE DELIVERED PER SHIFT SCH ×3 (04:52→21:42)
[2017-08-26] MEDS: RESP: ALBUTEROL 2.5 MG/IPRATROPIUM 0.5 MG NEB (SCH) NEB ×4 (07:46→20:13)
[2017-08-26] MEDS: SODIUM CHLORIDE 0.9% FLUSH 5 ML FLUSH IVF SCH ×2 (08:14→21:00)
[2017-08-26] MEDS: DOCUSATE SODIUM 50 MG/SENNA 8.6 MG TAB PO SCH ×2 (08:14→21:42)
[2017-08-26] MEDS: DOCUSATE SODIUM 100 MG CAP PO SCH ×2 (08:14→21:44)
[2017-08-26] MEDS: DIGOXIN 0.25 MG TAB PO SCH (08:14)
[2017-08-26] MEDS: DILTIAZEM-CD 120 MG CAP ER PO SCH (08:14)
[2017-08-26] MEDS: SIMETHICONE 125 MG CHEWABLE TAB PO SCH (08:14)
[2017-08-26] MEDS: POLYETHYLENE GLYCOL 17 GM PKG PO SCH (08:17)
[2017-08-26] MEDS: D5-NS + KCL 20 MEQ INJ 1,000 ML IV SCH ×2 (10:17→13:06)
[2017-08-26] MEDS: ACETAMINOPHEN/HYDROcodone 325 MG/5 MG TAB PO PRN (11:28)
--- NOTE | 2017-08-26 12:09 | HHI.PR ---
Subjective Remarks Follow-up partial small bowel obstruction 08/18/17-patient seen and examined, she had episode of emesis overnight. Patient is refusing NG tube to be put back in. Positive for flatus but no bowel movement 08/19/17-patient seen and examined, denies any nausea or vomiting as she was able to tolerate by mouth today. However patient still distended and denies any bowel movement although she still passing flatus. Case discussed with general surgery 08/20/17-patient seen and examined; distended and complaint of abdominal pain. Had episode of emesis yesterday. Currently nothing by mouth and plan for a trip to the OR 08/21/17-patient seen and examined, she status post exploratory laparoscopy with CAMILLA; NG tube in place, 08/22/17-patient seen and examined, NG tube was removed yesterday. More comfortable today. 08/23/17-patient seen and examined, complains of abdominal pain 08/24/17-patient is resting comfortably. Per nurse report, patient's daughter is postponed hospice until after patient completes rehabilitation at SNF 08/25/17-patient seen and examined, stable and no complaints of pain. Tolerated by mouth without any nausea and vomiting. Afebrile. 08/26/17-patient seen and examined, drainage of purulent material around PEG tube site..Afebrile Objective Vitals Vital Signs Date Time Temp Pulse Resp B/P (MAP) Pulse Ox O2 Delivery O2 Flow Rate FiO2 08/26/17 08:00 96.8 69 16 120/67 (84) 100 08/26/17 04:52 16 08/26/17 02:37 18 08/26/17 00:00 96.3 80 16 98/56 (70) 99 08/25/17 21:17 18 08/25/17 20:39 97 Nasal Cannula 2.00 08/25/17 20:00 97.1 83 16 100/62 (75) 93 08/25/17 16:00 96.1 74 19 123/57 (79) 99 I/O 08/25/17 08/25/17 08/25/17 08/26/17 08/26/17 08/26/17 07:00 15:00 23:00 07:00 15:00 23:00 Intake Total 360 ml 802 ml 215 ml Output Total 1650 ml 1400 ml 2125 ml Balance -1290 ml -598 ml -1910 ml Intake Oral 360 ml 450 ml IV Total 352 ml 215 ml Output Urine Total 1650 ml 1150 ml 1375 ml Stool Total 250 ml 750 ml # Bowel Movements 0 Imaging Last Impressions Chest X-Ray 08/23/17 0000 Signed Impressions: Service Date/Time: July 13:14 - CONCLUSION: 1. Worsening small left pleural effusion with associated left lower lobe airspace disease. 2. Stable mild positive fluid balance. Derrick May MD Abdomen X-Ray 08/20/17 0600 Signed Impressions: Service Date/Time: Sunday, August 20, 2017 08:47 - CONCLUSION: 1. Decreased bowel distention, limited study. Domo Gaxiola MD CT Angiography 08/17/17 0000 Signed Impressions: Service Date/Time: Thursday, August 17, 2017 02:57 - CONCLUSION: 1. The study is negative for pulmonary embolism. 2. Abnormal appearance to both lungs with 2 smooth margin no masses in the anterior upper right lung and a prominent area of opacity in the posterior left lower lung without air bronchograms. Cannot exclude malignancy. 3. Low left axillary adenopathy. Juan Carlos Carroll MD Small Bowel X-Ray 08/11/17 0000 Signed Impressions: Service Date/Time: Friday, August 11, 2017 13:40 - CONCLUSION: Persistent partial obstruction at the level of the mid small bowel. Rectocele. Antonio Hayes MD Abdomen/Pelvis CT 08/10/17 192 Signed Impressions: Service Date/Time: Thursday, August 10, 2017 20:57 - CONCLUSION: 1. Small bowel obstruction at the level of the distal jejunum or proximal ileum and appears to occur in the midabdomen. No mass or significant inflammatory changes are demonstrated, presumably obstruction related to adhesion. There is evidence of bowel resection and anastomosis in the right upper quadrant, and appears to be downstream of the obstruction. 2. Ventral hernia repair since the prior study. No recurrent defect. 3. Large staghorn calculus of the right kidney, not new but is associated with mild hydronephrosis currently. Antonio Hayes MD Objective Remarks GENERAL: NAD SKIN: Warm and dry. HEAD: Normocephalic. EYES: No scleral icterus. No injection or drainage. NECK: Supple, trachea midline. No JVD or lymphadenopathy. CARDIOVASCULAR: Regular rate and rhythm without murmurs, gallops, or rubs. RESPIRATORY: Breath sounds equal bilaterally. No accessory muscle use. GASTROINTESTINAL: Abdomen non-tender, nondistended. end ileostomy; G tube in place however drainage of purulent material around site MUSCULOSKELETAL: No cyanosis, or edema. BACK: Nontender without obvious deformity. No CVA tenderness. Procedures 1. Diagnostic laparoscopy. 2. Exploratory laparotomy. 3. Lysis of adhesions. 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
[2017-08-26] MEDS: ENOXAPARIN SODIUM 40 MG/0.4 ML SYRINGE SQ SCH (16:15)
--- NOTE | 2017-08-26 18:54 | HHI.PR ---
Subjective Remarks Alert and on O2 3 L. No pain or nausea. Taking her Diet well. No respiratory distress Objective Vital Signs Date Time Temp Pulse Resp B/P (MAP) Pulse Ox O2 Delivery O2 Flow Rate FiO2 08/26/17 16:00 97.0 72 17 97/53 (68) 92 08/26/17 12:00 97.4 72 15 107/55 (72) 92 08/26/17 08:00 96.8 69 16 120/67 (84) 100 08/26/17 07:46 98 Nasal Cannula 2.00 08/26/17 04:52 16 08/26/17 02:37 18 08/26/17 00:00 96.3 80 16 98/56 (70) 99 08/25/17 21:17 18 08/25/17 20:39 97 Nasal Cannula 2.00 08/25/17 20:00 97.1 83 16 100/62 (75) 93 I/O 08/25/17 08/25/17 08/25/17 08/26/17 08/26/17 08/26/17 07:00 15:00 23:00 07:00 15:00 23:00 Intake Total 360 ml 802 ml 215 ml 160 ml Output Total 1650 ml 1400 ml 2125 ml Balance -1290 ml -598 ml -1910 ml 160 ml Intake Oral 360 ml 450 ml IV Total 352 ml 215 ml 160 ml Output Urine Total 1650 ml 1150 ml 1375 ml Stool Total 250 ml 750 ml # Bowel Movements 0 Objective Remarks GENERAL: This is an obese 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 VITAL SIGNS: She is on oxygen via nasal cannula at 4 liters. HEENT: Head normocephalic. Pupils reactive. Arcus senilis is seen. Tongue is dry. Throat is injected. Nasal mucosa is clear. NECK: Supple. No bruits. No thyroid enlargement. No lymphadenopathy. CHEST: Decreased breath sounds at the bases with occasional bibasilar crackles.Few wheezes. HEART: The heart sounds are irregular, S1, S2, with no murmur or S3. ABDOMEN: Soft, obese, without masses or organomegaly. Bowel sounds are active. EXTREMITIES: Edema 1+ with diminished pulses. NEUROLOGIC: Reflexes are 1 + with no gross motor deficits. . SKIN: No lesions. Assessment and Plan Assessment and Plan IMPRESSION 1. Basilar atelectasis with hypoxemia. 2. Right pulmonary nodules, etiology undetermined. 3. History of colon cancer status post resection. 4. History of depression and anxiety. 5. Carcinomatosis with bowel obstruction. Plan : 1. Leave on O2 2 L. 2. Pain control as ordered. 3. Nebs qid , duoneb. 4. IS at bedside qid 5. Diet as tolerated. 6. Will Arrange home O2 2 L Zee Bates MD Aug 26, 2017 18:54
[2017-08-27 00:10] VITALS: BP 112/57; PULSE 88; RESP 20; TEMP 97.8; O2SAT 97
[2017-08-27] MEDS: ONDANSETRON HCL 4 MG/2 ML VIAL IV PRN ×2 (03:03→10:33)
[2017-08-27] MEDS: PCA - TOTAL MG MORPHINE DELIVERED PER SHIFT SCH ×2 (05:28→13:22)
[2017-08-27] MEDS: RESP: ALBUTEROL 2.5 MG/IPRATROPIUM 0.5 MG NEB (SCH) NEB ×3 (07:45→15:28)
[2017-08-27 07:46] VITALS: O2SAT 95
[2017-08-27 08:00] VITALS: BP 116/58; PULSE 71; RESP 16; TEMP 96.4; O2SAT 95
[2017-08-27] MEDS: SODIUM CHLORIDE 0.9% FLUSH 5 ML FLUSH IVF SCH (09:00)
[2017-08-27] MEDS: POLYETHYLENE GLYCOL 17 GM PKG PO SCH (09:00)
[2017-08-27] MEDS: SIMETHICONE 125 MG CHEWABLE TAB PO SCH (09:13)
[2017-08-27] MEDS: DIGOXIN 0.25 MG TAB PO SCH (09:13)
[2017-08-27] MEDS: DILTIAZEM-CD 120 MG CAP ER PO SCH (09:13)
[2017-08-27] MEDS: DOCUSATE SODIUM 100 MG CAP PO SCH (09:14)
[2017-08-27] MEDS: DOCUSATE SODIUM 50 MG/SENNA 8.6 MG TAB PO SCH (09:14)
[2017-08-27] MEDS: D5-NS + KCL 20 MEQ INJ 1,000 ML IV SCH (09:22)
[2017-08-27] MEDS: ACETAMINOPHEN/HYDROcodone 325 MG/5 MG TAB PO PRN (09:36)
[2017-08-27 12:00] VITALS: BP 114/63; PULSE 94; RESP 16; TEMP 95.7; O2SAT 100
--- NOTE | 2017-08-27 13:07 | HHI.PR ---
Subjective Remarks Follow-up partial small bowel obstruction 08/18/17-patient seen and examined, she had episode of emesis overnight. Patient is refusing NG tube to be put back in. Positive for flatus but no bowel movement 08/19/17-patient seen and examined, denies any nausea or vomiting as she was able to tolerate by mouth today. However patient still distended and denies any bowel movement although she still passing flatus. Case discussed with general surgery 08/20/17-patient seen and examined; distended and complaint of abdominal pain. Had episode of emesis yesterday. Currently nothing by mouth and plan for a trip to the OR 08/21/17-patient seen and examined, she status post exploratory laparoscopy with CAMILLA; NG tube in place, 08/22/17-patient seen and examined, NG tube was removed yesterday. More comfortable today. 08/23/17-patient seen and examined, complains of abdominal pain 08/24/17-patient is resting comfortably. Per nurse report, patient's daughter is postponed hospice until after patient completes rehabilitation at SNF 08/25/17-patient seen and examined, stable and no complaints of pain. Tolerated by mouth without any nausea and vomiting. Afebrile. 08/26/17-patient seen and examined, drainage of purulent material around PEG tube site..Afebrile 08/27/17-patient stable, denies any shortness of breath. Currently afebrile. Tolerating by mouth without any complication nausea and vomiting Objective Vitals Vital Signs Date Time Temp Pulse Resp B/P (MAP) Pulse Ox O2 Delivery O2 Flow Rate FiO2 08/27/17 08:00 96.4 71 16 116/58 (77) 95 08/27/17 07:46 95 Nasal Cannula 2.00 08/27/17 05:28 18 08/27/17 00:10 97.8 88 20 112/57 (75) 97 08/26/17 21:42 18 08/26/17 20:34 96.9 97 18 117/71 (86) 95 08/26/17 20:15 95 Nasal Cannula 2.00 08/26/17 16:00 97.0 72 17 97/53 (68) 92 I/O 08/26/17 08/26/17 08/26/17 08/27/17 08/27/17 08/27/17 07:00 15:00 23:00 07:00 15:00 23:00 Intake Total 215 ml 635 ml 680 ml 80 ml Output Total 2125 ml 2300 ml 1000 ml 675 ml Balance -1910 ml -1665 ml -320 ml -595 ml Intake Oral 475 ml 680 ml IV Total 215 ml 160 ml 80 ml Output Urine Total 1375 ml 1300 ml 800 ml 400 ml Stool Total 750 ml 1000 ml 200 ml 275 ml Imaging Last Impressions Chest X-Ray 08/23/17 0000 Signed Impressions: Service Date/Time: July 13:14 - CONCLUSION: 1. Worsening small left pleural effusion with associated left lower lobe airspace disease. 2. Stable mild positive fluid balance. Derrick May MD Abdomen X-Ray 08/20/17 0600 Signed Impressions: Service Date/Time: Sunday, August 20, 2017 08:47 - CONCLUSION: 1. Decreased bowel distention, limited study. Domo Gaxiola MD CT Angiography 08/17/17 0000 Signed Impressions: Service Date/Time: Thursday, August 17, 2017 02:57 - CONCLUSION: 1. The study is negative for pulmonary embolism. 2. Abnormal appearance to both lungs with 2 smooth margin no masses in the anterior upper right lung and a prominent area of opacity in the posterior left lower lung without air bronchograms. Cannot exclude malignancy. 3. Low left axillary adenopathy. Juan Carlos Carroll MD Small Bowel X-Ray 08/11/17 0000 Signed Impressions: Service Date/Time: Friday, August 11, 2017 13:40 - CONCLUSION: Persistent partial obstruction at the level of the mid small bowel. Rectocele. Antonio Hayes MD Abdomen/Pelvis CT 08/10/17 192 Signed Impressions: Service Date/Time: Thursday, August 10, 2017 20:57 - CONCLUSION: 1. Small bowel obstruction at the level of the distal jejunum or proximal ileum and appears to occur in the midabdomen. No mass or significant inflammatory changes are demonstrated, presumably obstruction related to adhesion. There is evidence of bowel resection and anastomosis in the right upper quadrant, and appears to be downstream of the obstruction. 2. Ventral hernia repair since the prior study. No recurrent defect. 3. Large staghorn calculus of the right kidney, not new but is associated with mild hydronephrosis currently. Antonio Hayes MD Objective Remarks GENERAL: NAD SKIN: Warm and dry. HEAD: Normocephalic. EYES: No scleral icterus. No injection or drainage. NECK: Supple, trachea midline. No JVD or lymphadenopathy. CARDIOVASCULAR: Regular rate and rhythm without murmurs, gallops, or rubs. RESPIRATORY: Breath sounds equal bilaterally. No accessory muscle use. GASTROINTESTINAL: Abdomen non-tender, nondistended. end ileostomy; G tube in place however drainage of purulent material around site MUSCULOSKELETAL: No cyanosis, or edema. BACK: Nontender without obvious deformity. No CVA tenderness. Procedures 1. Diagnostic laparoscopy. 2. Exploratory laparotomy. 3. Lysis of adhesions. 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
[2017-08-27] MEDS ORDERED: OXYGEN NAS.CANULA (13:10)
--- NOTE | 2017-08-27 13:13 | HHI.DS ---
Discharge Summary Admission Date Aug 10, 2017 at 21:30 Discharge Date: Aug 27, 2017 Admitting Diagnosis SBO. (1) SBO (small bowel obstruction) ICD Code: K56.69 - Other intestinal obstruction Status: Chronic (2) MATTHEW (acute kidney injury) ICD Code: N17.9 - Acute kidney failure, unspecified Status: Chronic (3) A-fib ICD Code: I48.91 - Unspecified atrial fibrillation Procedures 1. Diagnostic laparoscopy. 2. Exploratory laparotomy. 3. Lysis of adhesions. Brief History - From Admission This is a 77-year-old female with a PMH of HTN, A. fib, Depression and h/o Colon CA s/p Partial Colectomy/Liver Resection who presented to the ER w/ complaints of abdominal pain, nausea and vomiting x2 days. Reports occasional episodes of diarrhea. Denies fever, chills or sick contacts. On arrival, BP 150/75, HR 97, O2 sat 100% on RA, Temp 99.0. CBC unremarkable. Creatinine 1.62 , previously 0.76 on 08/28/16. Lactic Acid 1.1. INR 1.1. UA positive for UTI. CT Abd/Pelvis w/ small bowel obstruction level of distal jejunum or proximal ileum, no mass noted. Dr. Duffy consulted by ER physician, will evaluate. S/p NGT insertion in ER. Imaging Last Impressions Chest X-Ray 08/23/17 0000 Signed Impressions: Service Date/Time: July 13:14 - CONCLUSION: 1. Worsening small left pleural effusion with associated left lower lobe airspace disease. 2. Stable mild positive fluid balance. Derrick May MD Abdomen X-Ray 08/20/17 0600 Signed Impressions: Service Date/Time: Sunday, August 20, 2017 08:47 - CONCLUSION: 1. Decreased bowel distention, limited study. Domo Gaxiola MD CT Angiography 08/17/17 0000 Signed Impressions: Service Date/Time: Thursday, August 17, 2017 02:57 - CONCLUSION: 1. The study is negative for pulmonary embolism. 2. Abnormal appearance to both lungs with 2 smooth margin no masses in the anterior upper right lung and a prominent area of opacity in the posterior left lower lung without air bronchograms. Cannot exclude malignancy. 3. Low left axillary adenopathy. Juan Carlos Carroll MD Small Bowel X-Ray 08/11/17 0000 Signed Impressions: Service Date/Time: Friday, August 11, 2017 13:40 - CONCLUSION: Persistent partial obstruction at the level of the mid small bowel. Rectocele. Antonio Hayes MD Abdomen/Pelvis CT 08/10/17 1928 Signed Impressions: Service Date/Time: Thursday, August 10, 2017 20:57 - CONCLUSION: 1. Small bowel obstruction at the level of the distal jejunum or proximal ileum and appears to occur in the midabdomen. No mass or significant inflammatory changes are demonstrated, presumably obstruction related to adhesion. There is evidence of bowel resection and anastomosis in the right upper quadrant, and appears to be downstream of the obstruction. 2. Ventral hernia repair since the prior study. No recurrent defect. 3. Large staghorn calculus of the right kidney, not new but is associated with mild hydronephrosis currently. Antonio Hayes MD PE at Discharge GENERAL: NAD SKIN: Warm and dry. HEAD: Normocephalic. EYES: No scleral icterus. No injection or drainage. NECK: Supple, trachea midline. No JVD or lymphadenopathy. CARDIOVASCULAR: Regular rate and rhythm without murmurs, gallops, or rubs. RESPIRATORY: Breath sounds equal bilaterally. No accessory muscle use. GASTROINTESTINAL: Abdomen non-tender, nondistended. end ileostomy; G tube in place however drainage of purulent material around site MUSCULOSKELETAL: No cyanosis, or edema. BACK: Nontender without obvious deformity. No CVA tenderness. 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 Diet was advanced accordingly after NG tube was discontinued. Hospice was consulted, however family member postponing admission until after a stay at group home facility for rehabilitation. Questionable to lung nodule, pulmonary medicine was consulted however no bronchoscopy was performed. Patient's renal function improved with IV fluid hydration. She was continued on her treatment for other chronic medical conditions. DVT and GI prophylaxis were provided. Pt Condition on Discharge: Fair Discharge Disposition: Discharge to SNF Discharge Time: > 30 minutes Discharge Instructions DIET: Follow Instructions for: Heart Healthy Diet Activities you can perform: Regular-No Restrictions Follow up Referrals: PCP Follow-up - 2-3 Days Surgical - 2 Weeks with Mark Saldana MD New Medications: Oxygen (O2) (Oxygen (O2)) Inha LITER RHONA.CANULA CONTINUOUS for Prevent Hypoxemia, #2 Oxygen Concentrator Portable Gaseous 2 L/min via Nasal Canula Continuous For 99 months Continued Medications: Albuterol 18 GM Inh (Ventolin Hfa 18 GM Inh) 90 Mcg/Act Aer 2 PUFF INH Q4-6H PRN for SHORTNESS OF BREATH, #1 INHALER 0 Refills Digoxin (Digoxin) 0.25 Mg Tab 0.25 MG PO DAILY for Regulate Heart Beat, #30 TAB 0 Refills Diltiazem ER 24 HR (Diltiazem ER 24 HR) 180 Mg Nikita 120 MG PO DAILY, #30 TAB 0 Refills Ferrous Sulfate (Ferrous Sulfate) 325 Mg (65 Mg Iron) Tablet 325 MG PO DAILY for Nutritional Supplement, #30 TAB 0 Refills Fluticasone-Vilanterol Inh (Breo Ellipta Inh) 100-25 Mcg/Act Inh 1 PUFF INH DAILY, #1 INHALER 0 Refills Use daily at the same time. Furosemide (Furosemide) 20 Mg Tab 20 MG PO DAILY, #30 TAB 0 Refills Ipratropium-Albuterol Neb (Duoneb) 0.5-2.5 Mg/3 Ml Neb 1 NEBULE INH Q4HR NEB for SHORTNESS OF BREATH, #120 NEBULE 0 Refills Pantoprazole (Pantoprazole) 40 Mg Tab 40 MG PO DAILY for Reflux, #30 TAB 0 Refills Spironolactone (Spironolactone) 50 Mg Tab 50 MG PO DAILY, #30 TAB 0 Refills Byron Bowen MD Aug 27, 2017 13:13
[2017-08-27 16:00] VITALS: BP 129/92; PULSE 71; RESP 18; TEMP 97.1; O2SAT 100
[2017-08-27] MEDS: ENOXAPARIN SODIUM 40 MG/0.4 ML SYRINGE SQ SCH (16:10)
--- NOTE | 2017-08-27 17:06 | HHI.PR ---
Subjective Subjective Notes Resting in bed eating breakfast No issues Objective Vitals/I&O Vital Signs Date Time Temp Pulse Resp B/P (MAP) Pulse Ox O2 Delivery O2 Flow Rate FiO2 08/27/17 16:00 97.1 71 18 129/92 (104) 100 08/27/17 07:46 Nasal Cannula 2.00 08/23/17 09:03 21 Labs Date/Time Source Procedure Growth Status 08/10/17 21:14 Urine Clean Catch Urine Culture - Final 50-100,000 CFU/ML MIXED NASIM... Complete Radiology Last Impressions Abdomen X-Ray 08/18/17 0000 Signed Impressions: Service Date/Time: Friday, August 18, 2017 00:31 - CONCLUSION: Gaseous distended small bowel loops. No NG tube identified. Juan Carlos Carroll MD Chest X-Ray 08/17/17 0000 Signed Impressions: Service Date/Time: Thursday, August 17, 2017 23:12 - CONCLUSION: Gastric tube folds back on itself at the level of the GE junction and the tip is probably in the distal esophagus. Juan Carlos Carroll MD CT Angiography 08/17/17 0000 Signed Impressions: Service Date/Time: Thursday, August 17, 2017 02:57 - CONCLUSION: 1. The study is negative for pulmonary embolism. 2. Abnormal appearance to both lungs with 2 smooth margin no masses in the anterior upper right lung and a prominent area of opacity in the posterior left lower lung without air bronchograms. Cannot exclude malignancy. 3. Low left axillary adenopathy. Juan Carlos Carroll MD Small Bowel X-Ray 08/11/17 0000 Signed Impressions: Service Date/Time: Friday, August 11, 2017 13:40 - CONCLUSION: Persistent partial obstruction at the level of the mid small bowel. Rectocele. Antonio Hayes MD Abdomen/Pelvis CT [id number] Signed Impressions: Service Date/Time: Thursday, August 10, 2017 20:57 - CONCLUSION: 1. Small bowel obstruction at the level of the distal jejunum or proximal ileum and appears to occur in the midabdomen. No mass or significant inflammatory changes are demonstrated, presumably obstruction related to adhesion. There is evidence of bowel resection and anastomosis in the right upper quadrant, and appears to be downstream of the obstruction. 2. Ventral hernia repair since the prior study. No recurrent defect. 3. Large staghorn calculus of the right kidney, not new but is associated with mild hydronephrosis currently. Antonio Hayes MD Cardiovascular: Regular Lungs: Clear Abdomen: Other (midline incision with no drainage; aidan; ileostomy with stool in bag; G tube with minimal drainage---stitches removed; soft; minimally tender ) Narrative Exam minimal generalized edema A/P Problem List: (1) SBO (small bowel obstruction) ICD Codes: K56.69 - Other intestinal obstruction Status: Chronic (2) UTI (urinary tract infection) ICD Codes: N39.0 - Urinary tract infection, site not specified Status: Acute (3) A-fib ICD Codes: I48.91 - Unspecified atrial fibrillation (4) MATTHEW (acute kidney injury) ICD Codes: N17.9 - Acute kidney failure, unspecified Status: Chronic Assessment and Plan 77 year old female with PSBO -POD7 ex lap; CAMILLA; small bowel resection with end-ileostomy; G tube placement -Continue to cap G tube -Tolerating regular diet -Wean LACE CUTTER; Percocet -Check BMP today -DC IVF -PT; OOB -DC George -Explained about increase oral intake of fluids due to ileostomy Problem Qualifiers (1) A-fib: Qualified Codes: I48.2 - Chronic atrial fibrillation Marnie Lowe Aug 27, 2017 17:06
[2017-08-27 19:10] LABS: BICARBONATE 35.2 MEQ/L (21.0-32.0); POTASSIUM 4.5 MEQ/L (3.5-5.1)
--- NOTE | 2017-09-11 08:53 | RSPPFT ---
DATE OF PROCEDURE: 08/24/17 COMMENTS: Spirometry demonstrates an FEV1 of 0.6 at 61% of predicted, FVC of 0.6 at 27%, FEF 25-75 is 0.02. Post-bronchodilator study demonstrated no significant change. Lung volumes were not completed. Patient had a very poor effort. Flow volume loops suggest an obstructive defect. IMPRESSION: 1. Severe obstructive disease. 2. Additional moderately severe restrictive disease. 3. No significant change following use of bronchodilator.
== END 2017-08-27 20:37 | DRG 327 ==
LOC: NEPE 17:54 → NEDA 21:30 → N07A 23:11
PROVIDERS: ADMIT Hospitalist; ATTEND Hospitalist
PROC: 0D1B0Z4 Bypass Ileum to Cutaneous, Open Approach (ICD-10-PCS; 2017-08-20)
PROC: 0DBL0ZZ Excision of Transverse Colon, Open Approach (ICD-10-PCS; 2017-08-20)
PROC: 0DBB0ZZ Excision of Ileum, Open Approach (ICD-10-PCS; principal; 2017-08-20 14:38)
PROC: 0DH60UZ Insertion of Feeding Device into Stomach, Open Approach (ICD-10-PCS; 2017-08-20 14:38)
DX: C78.4 Secondary malignant neoplasm of small intestine (principal); N17.9 Acute kidney failure, unspecified; Z68.41 Body mass index [BMI] 40.0-44.9, adult; I48.0 Paroxysmal atrial fibrillation; C78.6 Secondary malignant neoplasm of retroperitoneum and peritoneum; N39.0 Urinary tract infection, site not specified; E66.01 Morbid (severe) obesity due to excess calories; E86.0 Dehydration; J98.11 Atelectasis; I48.2 Chronic atrial fibrillation; I10 Essential (primary) hypertension; F32.9 Major depressive disorder, single episode, unspecified; J45.909 Unspecified asthma, uncomplicated; K59.00 Constipation, unspecified; M19.90 Unspecified osteoarthritis, unspecified site; R91.8 Other nonspecific abnormal finding of lung field; R09.02 Hypoxemia; K21.9 Gastro-esophageal reflux disease without esophagitis; E87.6 Hypokalemia; Z87.442 Personal history of urinary calculi; Z90.49 Acquired absence of other specified parts of digestive tract; Z23 Encounter for immunization; Z85.038 Personal history of other malignant neoplasm of large intestine; Z85.05 Personal history of malignant neoplasm of liver
CPT/HCPCS: 36600; 71010; 71275; 74000; 74020; 74177; 74250; 76937; 80048; 80053; 80162; 81001; 82550; 82805; 83605; 83690; 83735; 84484; 85025; 85379; 85610; 85730; 87086; 88305; 88309; 88331; 90471; 90472; 90686; 90732; 93005; 94060; 94150; 94640; 94664; 96361; 96374; 96375; C9113; G0008; G0009; J0330; J0690; J0744; J1100; J1160; J1650; J2270; J2370; J2405; J2710; J3010; J3480; J7030; J7040; J7120; Q2038; Q9963; Q9967